=== PATIENT | female | born 1950 | race African-American/Black ===

== ENCOUNTER 2016-06-18 20:46 | Inpatient (IN) | payer OTHER ==
[2016-06-18] MEDS ORDERED: DUONEB (A & A) INH ONE (20:47)
[2016-06-18] MEDS ORDERED: LASIX IV ONE ×2 (20:48→22:51)
[2016-06-18 21:18] LABS: ALLEN TEST YES; BE 1.1 mmoll (-3.0-3.0); BLOOD TYPE ARTERIAL; DRAW SITE R RADIAL; METHB 1.7 % (0.0-1.5); PCO2(98.6) 34 mmHg (35-45); PO2(98.6) 61 mmHg (60-100); SAMPLE BLOOD; SAO2 95.5 % (95.0-100.0); THB 8.5 g/dL (11.5-17.4); pH(98.6) 7.47 (7.35-7.45)
[2016-06-18 21:19] LABS: MODALITY ROOM AIR
--- NOTE | 2016-06-18 21:47 | PROVIDER DOCUMENTATION ---
HPI-Respiratory General <Jim Stafford - Last Filed: 06/18/16 22:55> - General Source: patient - History of Present Illness-Resp Quality of Pain: reports: aching Severity in ED: reports: mild Onset/Duration: reports: 1 week ago Timing: reports: still present Cough Quality/Degree: reports: mild, productive cough Current Respiratory Medication Therapy: Initiated see nurses note Associated Symptoms: reports: cough, shortness of breath Similar Symptoms Previously?: Yes Recently seen or treated by another doctor?: Yes <Flower Felipe - Last Filed: 06/18/16 23:37> - General Chief Complaint: Shortness of Breath Stated Complaint: SOB Time Seen by Provider: 06/18/16 20:46 Allergies/Adverse Reactions: Patient Allergies Allergy/AdvReac Type Severity Reaction Status Date / Time No Known Allergies Allergy Verified 06/18/16 21:35 Home Medications: Home Medication List Medication Instructions Recorded Confirmed Last Taken Type Albuterol Sulfate [Proair Hfa] 8.5 gm IH PRN PRN 12/10/14 06/18/16 06/18/16 21: 00 History Aspirin [Aspir-Low] 81 mg PO DAILY 04/16/16 06/18/16 06/18/16 07:00 History Atorvastatin Calcium 80 mg PO QHS 04/16/16 06/18/16 06/17/16 20:00 History Insulin Glargine [Lantus] 10 units SQ QPM 04/16/16 06/18/16 06/17/16 19:00 History Insulin Glargine [Lantus] 40 units SQ QAM 04/16/16 06/18/16 06/18/16 07:00 History Metoprolol Tartrate 37 mg PO BID 04/16/16 06/18/16 06/18/16 07:00 History Omeprazole 40 mg PO DAILY 04/16/16 06/18/16 06/18/16 07:00 History Hydrocodone/APAP 10 mg/325 mg 1 each PO Q8H PRN PRN 04/17/16 06/18/16 06/18/16 12:00 History [[place]-10] Ferrous Gluconate 240 mg PO BID #0 04/19/16 06/18/16 06/18/16 07:00 Rx Losartan [Cozaar] 100 mg PO DAILY #60 tablet 04/19/16 06/18/16 06/18/16 07:00 Rx Ticagrelor [Brilinta] 90 mg PO BID #60 tablet 04/19/16 06/18/16 06/18/16 07:00 Rx Furosemide [Lasix] 20 mg PO DAILY 06/18/16 06/18/16 06/18/16 07:00 History Isosorbide Mononitrate [Isosorbide 60 mg PO DAILY 06/18/16 06/18/16 06/18/16 07: 00 History Mononitrate ER] LISINOpril [Prinivil] 10 mg PO DAILY 06/18/16 06/18/16 06/18/16 07:00 History Nitroglycerin 0.4 mg SL DIRECTED PRN 06/18/16 06/18/16 Unknown History - History of Present Illness-Resp Nature of Presenting Problem: 65 year old F presents to the ED with a cc of shortness of breath. PT states cough began 1 week ago with minimal shortness of breath. Pt states that she has been taking breathing treatments every 3-4 hours with some relief. PT states today she became short of breath with exertion. PT states that last breathing treatment was 1700. (Flower Felipe) Review of Systems - Adult - REVIEW OF SYSTEMS - ADULT Constitutional: denies: chills, fever Eyes: reports: no symptoms reported Ears, Nose, Mouth & Throat: reports: no symptoms reported Cardiovascular: denies: chest pain, palpitations Respiratory: reports: cough, shortness of breath Gastrointestinal: denies: nausea, vomiting Genitourinary: reports: no symptoms reported Musculoskeletal: reports: no symptoms reported Integumentary: reports: no symptoms reported Neurological: reports: no symptoms reported Psychiatric: reports: no symptoms reported Endocrine: reports: no symptoms reported Hematologic/Lymphatic: reports: no symptoms reported Allergic/Immunologic: reports: no symptoms reported All Other Systems: Reviewed and Negative <Flower Felipe - Last Filed: 06/18/16 23:37> Past History - Adult - PAST MEDICAL HISTORY-ADULT Review of Records: reports: Nursing Assessment Review, Medications Reviewed Major Childhood Illnesses: reports: denies history Cardiovascular: reports: CHF, HTN, hyperlipidemia Respiratory: reports: asthma, COPD Gastrointestinal: reports: denies history Obstetrical/Gynecological: reports: denies history Genitourinary: reports: denies history Musculoskeletal: reports: denies history Neurological: reports: CVA Endocrine/Immune: reports: Diabetes, thyroid disorder Other Conditions: reports: denies history - PRIOR SURGERIES/PROCEDURES Surgical/Procedure History: reports: cholecystectomy, BTL, - IMMUNIZATION STATUS Childhood Immunizations: See Nurse Assessment Flu Vaccine: See Nurse Assessment - FAMILY HISTORY Family History: reviewed, not pertinent - SOCIAL HISTORY Smoking: quit greater than 1 year Substance Use: none/never Alcohol Use Frequency: never <Flower Felipe - Last Filed: 06/18/16 23:37> Physical Exam-General - PHYSICAL EXAM-ADULT Initial Vital Signs Reviewed: Yes - CONSTITUTIONAL General Appearance: alert, mild distress, other (ill appearing) - RESPIRATORY Respiratory: chest non-tender, rales - CARDIOVASCULAR Cardiovascular: normal peripheral pulses, regular rate, rhythm, no edema - GASTROINTESTINAL (ABDOMEN) Abdominal Exam: non tender, soft - MUSCULOSKELETAL Extremity: tenderness (painful ROM left shoulder) - SKIN Integumentary: normal color, normal turgor, warm/dry - PSYCHIATRIC Psych/Mental Status: normal mood/affect, normal thought content, normal thought process, oriented x 3 <Flower Felipe - Last Filed: 06/18/16 23:37> Progress - XRAY 1 XRAY Study: Chest Impression: Abnormal XRAY Interpretation: CHF, questionable RLL infiltrate: Dr. Stafford- CHRISTOPHER FAROOQ - CT/MRI 1 CT Study: Angiogram Impression: Abnormal (No pulmonary embolus or acute vascular abnormality identified. Atelectasis in both lungs, greater on the right with bilateral pleural effusions of uncertain etiology. There is heterogeneous air trapping in the upper lungs. No definite pneumonia. Indeterminate right thyroid nodules and nodular masslike density in the upper mediastinum which could be contunuous with or seperate from the right thyroid.: Dr. Miner([facility] radiologist)) - CONSULTS/PCP/HOSPITALIST Notification #1 *Consult/PCP/Hospitalist*: Dr. Ray- Hospitalist DMM Time Discussed: 22:53 Consult Disposition: Will see in ED, Admit <Flower Felipe - Last Filed: 06/18/16 23:37> Departure - Departure Time of Disposition Order: 22:55 Certified Medical Emergency: Emergent <Jim Stafford - Last Filed: 06/18/16 22:55> <Folwer Felipe - Last Filed: 06/18/16 23:37> - Departure DIAGNOSIS: Hypertension, Heart failure Disposition: ADMITTED INPATIENT 09 Condition: Stable Referrals: None,PCP [Primary Care Provider] - Attestation - Scribe Verification/Attestation Scribe:: Flower Felipe Acting as Scribe for:: Jim Stafford Scribe documention review:: This chart was documented by a scribe and accurately reflects the service the provider performed and the decisions made by the provider. <Flower Felipe - Last Filed: 06/18/16 23:37> Physician Attestation - Physician Attestation I, the provider, attest to the following statement:: Jim Stafford Physician documentation Attestation:: This documentation recorded by the scribe accurately reflects the service I personally performed and the decisions made by me. <Flower Felipe - Last Filed: 06/18/16 23:37>
[2016-06-18 22:04] LABS: BASO% 0.2 % (0.0-0.8); EOS# 0.17 X1000 (0.0-0.7); HEMATOCRIT 31.5 % (37.0-47.0); LYMPH# 0.93 X1000 (1.2-3.4); LYMPH% 11.1 % (20.5-51.1); MANUAL DIFF NEEDED? NO; MCH 21.3 PG (27-31); MCHC 28.6 g/dL (33-37); MCV 74.6 FL (81-99); MONO# 0.29 X1000 (0.11-0.59); MONO% 3.5 % (1.7-9.3); MPV 10.5 FL (7.4-10.4); NEUT% 83.2 % (42.2-75.2); PLT 238 X1000 (130-400); RBC 4.22 XMIL (4.2-5.4)
[2016-06-18 22:26] LABS: AGAP 16; ALBUMIN 4.3 g/dL (3.5-5.0); ALKALINE PHOSPHATASE 131 U/L (32-104); BUN 15 mg/dL (8-22); CALCIUM 9.5 mg/dL (8.8-10.2); CHLORIDE 102 mmol/L (98-107); COSMO 290; GOT 21 U/L (10-30); GPT 18 U/L (10-36); POTASSIUM 3.8 mmol/L (3.5-5.1); SODIUM 142 mmol/L (136-145); TCO2 24 mmol/L (25-35); TOTAL BILIRUBIN 0.69 mg/dL (0.20-1.00)
[2016-06-18] MEDS ORDERED: ROCEPHIN 1 GM/NS 50 ML IV ONE (22:51)
[2016-06-19] MEDS: LOVENOX SUBQ SCH (02:00)
[2016-06-19] MEDS: SOLU-MEDROL IV SCH ×3 (02:00→17:22)
[2016-06-19] MEDS: DUONEB (A & A) INH SCH ×6 (03:25→23:35)
[2016-06-19] MEDS: PRILOSEC PO SCH (06:28)
[2016-06-19] MEDS: LASIX IV SCH ×2 (06:28→17:22)
--- NOTE | 2016-06-19 06:40 | HISTORY AND PHYSICAL ---
PRIMARY CARE PHYSICIAN: CHIEF COMPLAINT: Shortness of breath x1 week. HISTORY OF PRESENTING ILLNESS: A 65-year-old female with a history of chronic obstructive pulmonary disease, coronary artery disease, diabetes mellitus type 2, had presented to the emergency department with a 1-week history of progressive worsening shortness of breath. The patient states that she was wheezing. She could not catch her breath at times and seemed to be worsening. She was evaluated in the emergency room and due to presenting symptoms, it was thought that she would need hospitalization for further management. At the time of my examination, she had denied any headache, fever, chills, nausea, vomiting, diarrhea, hemoptysis, melena, weight changes, but complained of chest discomfort and shortness of breath. PAST MEDICAL HISTORY: Includes chronic obstructive pulmonary disease, diabetes mellitus type 2, hypertension, coronary artery disease/myocardial infarction. PAST SURGICAL HISTORY: Coronary stent, cholecystectomy, appendectomy, thyroidectomy, and right leg surgery. ALLERGIES: No known drug allergies. CURRENT MEDICATIONS: See MAR. SOCIAL HISTORY: She is a former smoker. Quit about 2 years ago. Denies any history of alcohol or illicit drug use. She uses a walker to walk. FAMILY HISTORY: Positive for coronary disease in mother. REVIEW OF SYSTEMS: Twelve point systems as noted in the history of present illness Other systems negative. PHYSICAL EXAMINATION: GENERAL: Cooperative, friendly female. She is resting more comfortably now. VITAL SIGNS: Temperature 97.8 degrees, pulse 82, respiration 24, blood pressure 180/100, she is saturating 95%. HEENT: Atraumatic, normocephalic. Extraocular movements intact. Pupils equal, round, and reactive to light and accommodation. NECK: No masses. CHEST: Rhonchi. CARDIOVASCULAR: Regular rate and rhythm. ABDOMEN: Soft. Positive bowel sounds. EXTREMITIES: Trace edema. NEUROLOGICAL: She is awake, alert, oriented x3. GENITOURINARY: No bladder distention. SKIN: Warm. LABORATORIES AND STUDIES: Sodium 142, potassium 3.8, chloride 102, CO2 24, BUN is 15, creatinine 0.8, glucose is 199. Pro-B-type natriuretic peptide is 1000. D-dimer is 1.19. ASSESSMENT: A 65-year-old female with a history of chronic obstructive pulmonary disease, diabetes mellitus type 2, and coronary artery disease, who presented to the emergency department with 1-week history of worsening shortness of breath. The patient will need hospitalization for further management. 1. Acute chronic obstructive pulmonary disease exacerbation. 2. Increase in D-dimer. Will need to rule out pulmonary embolus. 3. Increase in B-type natriuretic peptide. Suspected congestive heart failure exacerbation, unspecified. 4. History of coronary artery disease. 5. Hypertension. 6. Diabetes mellitus type 2. PLAN: 1. We will admit patient to medical floor with telemetry. 2. We will continue patient on DuoNeb's and IV Solu-Medrol. 3. Awaiting for results of CT scan of the chest. 4. Continue gentle diuresis with Lasix and check an echocardiogram. 5. We will monitor her blood pressure closely. Resume antihypertensive agent. 6. We will put patient on sliding scale insulin regimen. Monitor blood glucose. 7. Put patient on deep venous thrombosis prophylaxis with Lovenox. 8. We will continue to follow and reassess.
[2016-06-19] MEDS: HUMULIN R SUBQ SCH ×4 (07:01→20:54)
[2016-06-19 07:42] LABS: BASO% 0.2 % (0.0-0.8); EOS# 0.01 X1000 (0.0-0.7); EOS% 0.2 % (0.0-10.0); HEMATOCRIT 28.9 % (37.0-47.0); HEMOGLOBIN 8.6 g/dL (12.0-16.0); LYMPH% 4.6 % (20.5-51.1); MANUAL DIFF NEEDED? YES; MCH 21.8 PG (27-31); MCHC 29.8 g/dL (33-37); MCV 73.2 FL (81-99); MONO# 0.07 X1000 (0.11-0.59); MONO% 1.1 % (1.7-9.3); MPV 10.9 FL (7.4-10.4); NEUT% 93.9 % (42.2-75.2); PLT 238 X1000 (130-400); RBC 3.95 XMIL (4.2-5.4)
[2016-06-19 07:44] LABS: AGAP 14; BUN 15 mg/dL (8-22); CALCIUM 9.2 mg/dL (8.8-10.2); CHLORIDE 100 mmol/L (98-107); COSMO 291; POTASSIUM 3.9 mmol/L (3.5-5.1); SODIUM 140 mmol/L (136-145); TCO2 26 mmol/L (25-35)
--- NOTE | 2016-06-19 08:00 | Diag Imaging Result Document ---
PROCEDURE NAME: CHEST-2 VIEWS - 06/18/2016 FRONTAL AND LATERAL CHEST, TWO VIEWS: COMPARISON: Compared to 04/16/2016. FINDINGS: The lungs are well expanded. The heart is enlarged. There is vascular distention. No effusions. No consolidation. Prominent degenerative bone spurring throughout the thoracic spine. IMPRESSION: Cardiomegaly with pulmonary edema consistent with congestive failure.
--- NOTE | 2016-06-19 08:08 | Diag Imaging Result Document ---
PROCEDURE NAME: ANGIOGRAM/PULMONARY ARTERIES - 06/18/2016 CT ANGIOGRAM PULMONARY ARTERIES WITH CONTRAST: TECHNIQUE: Exam performed with intravenous contrast. Axial and reformatted coronal images are obtained. A dose reduction protocol was used. Compared with 04/17/2016. FINDINGS: There are no filling defects identified in the pulmonary arteries. There is no indication of aortic dissection. There is mild cardiomegaly similar to the previous exam. There are medium right and small left pleural effusions which are increased compared to the previous exam. There is compressive atelectasis at the posterior right lower lobe. There are hazy opacities elsewhere in the bilateral lungs. There is no discrete pneumonia identified. There is no pneumothorax seen. There is heterogeneous enlargement of the right thyroid lobe noted. There is a 3.5 x 2.1 cm heterogeneous mass in the superior mediastinum which appears to abut the enlarged right thyroid lobe and has overall similar appearance. This mediastinal mass likely represents inferior extension from the right thyroid lobe. This appears stable compared to the previous exam. The left thyroid lobe apparently is surgically absent. IMPRESSION: 1. No evidence of pulmonary embolism. 2. Probable mild congestive heart failure with medium right and small left pleural effusions. Compressive atelectasis at the posterior inferior right lower lobe. No discrete pneumonia. 3. Heterogeneous enlargement of right thyroid lobe with probable extension into the nearby superior mediastinum. A [facility] physician provided preliminary results at 11:28 p.m. on 06/18/2016.
[2016-06-19 08:48] LABS: HYPOCHROM 1+; LYMPHS 8 % (21-51); TARGET CELLS OCCASIONAL
[2016-06-19] MEDS: COZAAR PO SCH (09:05)
[2016-06-19] MEDS: BRILINTA PO SCH ×2 (09:05→20:52)
[2016-06-19] MEDS: LOPRESSOR PO SCH ×2 (09:05→20:53)
[2016-06-19] MEDS: FERGON PO SCH ×2 (09:06→20:52)
[2016-06-19] MEDS: ASPIRIN EC PO SCH (09:10)
--- NOTE | 2016-06-19 11:52 | CONSULTATION ---
DATE OF CONSULTATION: 06/19/2016 REASON FOR CONSULTATION: Cardiology was consulted for heart failure, coronary artery disease. HISTORY OF PRESENT ILLNESS: Ms. Linda Monge is a 65-year-old, black lady who has diabetes, COPD, coronary artery disease, comes with complaints of chest pain and shortness of breath. She had a stress test done earlier this year which was normal. She followed up with her primary locks inspector in [place]. She had been doing well. However, for the last week or so, she says every time she did minimal exertion, she had retrosternal chest discomfort described as squeezing in character. For the last 3 days, she has been having increasing episodes of chest pain associated with shortness of breath and wheezing. Her shortness of breath worsened. She came to the emergency room. Chest x-ray revealed heart failure. D-dimers were elevated. CT scan was done to rule out PE and that was negative for pulmonary embolism. However, heart failure was noted. She was started on Lasix. Symptomatically, she is better. At the time of my examination, patient does not complain of chest pain. REVIEW OF SYSTEMS: A 14-point review of systems was done. GI System: There is no history of nausea, vomiting, diarrhea. There is no history of hematemesis or melena. Central Nervous System: No focal weakness to suggest a CVA or TIA. Genitourinary System: There is no dysuria or hematuria. Respiratory System: There is no history of cough, expectoration, or hemoptysis. There is no history of fevers or chills. Endocrine System: Stable. PAST MEDICAL HISTORY: 1. Coronary artery disease, status post stent placement in the past. Non-Q-wave myocardial infarction in the past. 2. On 12/13/2015, she had a proximal stent, drug-eluting stent to the right coronary artery. LAD ostial 50% unchanged from previous cardiac catheterization. Circumflex stent was patent. PDA stent was patent. Ejection fraction of 50%. Last cardiac stress test on 04/20/2016, no evidence of ischemia. 3. Echocardiogram, concentric left ventricular hypertrophy. 4. Pulmonary arterial hypertension. Systolic pressure of 42-47 mmHg. 5. Bilateral carotid disease, LICA 40-50%, KATT 0-39%. 6. Hypertension. 7. Diabetes. 8. Obesity. 9. Paranoid schizophrenia. 10. COPD. 11. Ex-smoker. HOME MEDICATIONS: Include: 1. Inhalers. 2. Metoprolol 37.5 mg p.o. b.i.d. 3. Atorvastatin 80. 4. Lantus insulin. 5. Aspirin 81 mg a day. 6. Omeprazole 40. 7. Lantus insulin 40 subcutaneous q.a.m. 8. Losartan 100. 9. Brilinta 90 mg p.o. b.i.d. 10. Iron sulfate 240. 11. Nitroglycerin as needed. 12. Lisinopril 10. 13. Furosemide 20. 14. Isosorbide mononitrate extended release 60 mg. PHYSICAL EXAMINATION: Vital Signs: Blood pressure was 138/42. Cardiovascular System: Normal jugular venous pressure. There was no thyromegaly. There was no carotid bruit. First and second heart sounds were heard. Respiratory System: Distant breath sounds. There were fine inspiratory scattered crepitations. Abdomen: Was obese, soft, nontender. There was no guarding or rigidity. Bowel sounds were heard. Central Nervous System: Alert and oriented. Was moving all 4 extremities. Extremities: Examination of lower extremities revealed no pedal edema. HEENT: Atraumatic, normocephalic. Pupils were equal and reacting to light. LABORATORY EXAMINATION: Revealed a sodium of 140, potassium 3.9, BUN 15, creatinine 0.8. ProBNP abnormal at 1000. First troponin was negative. ASSESSMENT AND PLAN: 1. Ms. Linda Monge is a 65-year-old, black lady with a history of coronary artery disease, hypertension, diabetes, chronic obstructive pulmonary disease. Comes with complaints of exertional chest discomfort for a week with worsening chest pain associated with shortness of breath. Admitted with heart failure. From a cardiac standpoint, she has had multiple stents in the past. Last stent placement to proximal right coronary artery on 12/13/2015 and also she had a stress test earlier this year which was negative. Given her ongoing chest pain, patient has unstable angina. We will get serial cardiac enzymes and plan for a left heart catheterization. Risks, benefits, and alternatives were explained. We will do the left heart catheterization when she is euvolemic. 2. She has heart failure. Started on Lasix. Would recommend continuing the Lasix at the present dosage. We will also check lab work in the morning. As far as heart failure is concerned, the ejection fraction was normal. She has diastolic heart failure. 3. History of transient ischemic attack and diabetes. I have not made any changes to her medication. Thank you for the consult. We will follow hospital course.
--- NOTE | 2016-06-19 14:34 | EKG Report ---
Test Performed on : 06/19/2016 1:17:02 PM Test Reason : dyspnea Blood Pressure : / mmHG Vent. Rate : 085 BPM Atrial Rate : 166 BPM P-R Int : 000 ms QRS Dur : 098 ms QT Int : 416 ms P-R-T Axes : 060 043 093 degrees QTc Int : 495 ms Undetermined rhythm Nonspecific T wave abnormality Prolonged QT Abnormal ECG When compared with ECG of 19-APR-2016 09:08, Current undetermined rhythm precludes rhythm comparison, needs review Nonspecific T wave abnormality now evident in Anterior leads Confirmed by Allan FAROOQ, Lamonte Keane ([id number]) on 06/20/2016 3:23:17 PM
[2016-06-19] MEDS: IMDUR PO SCH (15:05)
--- NOTE | 2016-06-19 16:02 | PROGRESS NOTE ---
DATE: 06/19/2016 SUBJECTIVE: Today Ms. Monge refers to be doing fine. Still continues to have some residual shortness of breath, especially on exertion. PHYSICAL EXAMINATION: General: Ms. Monge is 65-year-old female. She is in bed, not in any remarkable distress. HEENT: Mucosa is pink and moist. Anicteric. Acyanotic. Neck: Supple. Chest: Good air entry bilateral. A few dry crackles at the bases. Cardiovascular: Regular rate and rhythm. Abdomen: Soft, distended but nontender. Bowel sounds are present. Extremities: No pedal edema. DOUGH MIXER: Patient is alert and oriented x4. There is no focal neurological deficit. DIAGNOSTIC STUDIES: A chest x-ray on presentation showed cardiomegaly with pulmonary edema consistent with congestive heart failure. A CTA to rule out pulmonary emboli was negative, but did show mild congestive heart failure with medium right and small left pleural effusions, some compressive atelectasis as well. ASSESSMENT: 1. Shortness of breath likely due to underlying pulmonary edema from congestive heart failure. 2. Acute on chronic congestive heart failure. 3. Iron deficiency anemia. 4. Mild concentric hypertrophic cardiomyopathy. 5. Severe hypertension on presentation, likely hypertensive emergency/urgency. 6. Uncontrolled diabetes mellitus. 7. Morbid obesity. PLAN: So I think the plan is we are going to continue with the current medications. I have added Lantus for a better blood glucose control. Patient is currently on antibiotics , her heart medications, and has been evaluated by Cardiology as well. MTDD
--- NOTE | 2016-06-19 17:56 | ECHO REPORT ---
ORDER DATE: 06/19/2016 INTERPRETING PHYSICIAN: Dr. Dunlap REQUESTING PHYSICIAN: CLINICAL INDICATIONS: A 62-year-old female with CHF, obese. M-MODE MEASUREMENTS: Right ventricle: 3.2 cm. Left ventricle end diastole: 4.1 cm. Left ventricle end systole: 3.3 cm. Posterior wall: 1.3 cm. Interventricular septum: 1.2 cm. Left atrium: 4.3 cm. Aortic root: 3.0 cm. SUMMARY OF 2-DIMENSIONAL IMAGING: The left ventricular function appears to be mildly impaired. Global ejection fraction may be anywhere in the order of 45-50%. The apical views are really very limited. They are foreshortened. A different imaging modality should be used to evaluate this patient's ejection fraction. The right ventricle is probably mildly enlarged. The aortic valve looks normal. Color flow mapping unremarkable. The mitral valve looks normal. Color flow mapping unremarkable. Pulse wave Doppler of mitral inflow is normal. Tissue Doppler of septal and lateral mitral annulus averages 8 cm per second. The pulmonic valve looks normal. Color flow mapping unremarkable. The tricuspid valve shows a mild degree of regurgitation. The inferior vena cava is not dilated. Pulmonary pressure estimated at 33 mmHg. There is no pericardial effusion, masses or thrombus. IMPRESSION: 1. In summary, this study is technically very difficult. Evaluation of the left ventricular systolic function is limited. The global ejection fraction is probably mildly decreased, however, it could truly be normal except that we could not really see well the apical views. Different imaging modality is recommended. 2. No evidence of any significant valvular abnormality. 3. No definite diastolic dysfunction. 4. Pulmonary pressure estimated at 33 mmHg. Clinical correlation recommended.
[2016-06-19] MEDS ORDERED: INSULIN PEN NEEDLES ONE (20:44)
[2016-06-19] MEDS: LIPITOR PO SCH (20:53)
[2016-06-19] MEDS ORDERED: LANTUS SUBQ SCH (21:00)
[2016-06-19] MEDS: ROCEPHIN 1 GM/NS 50 ML IV SCH (22:15)
[2016-06-20] MEDS: LOVENOX SUBQ SCH (01:20)
[2016-06-20] MEDS: SOLU-MEDROL IV SCH ×2 (01:20→10:19)
[2016-06-20] MEDS: DUONEB (A & A) INH SCH ×6 (03:15→23:18)
[2016-06-20 04:15] LABS: AGAP 14; BUN 28 mg/dL (8-22); CALCIUM 9.4 mg/dL (8.8-10.2); CHLORIDE 97 mmol/L (98-107); COSMO 291; POTASSIUM 4.1 mmol/L (3.5-5.1); SODIUM 136 mmol/L (136-145); TCO2 25 mmol/L (25-35)
[2016-06-20] MEDS: PRILOSEC PO SCH (06:52)
[2016-06-20] MEDS: LASIX IV SCH ×2 (06:52→18:47)
[2016-06-20] MEDS: HUMULIN R SUBQ SCH ×4 (06:53→22:32)
--- NOTE | 2016-06-20 07:19 | EKG Report ---
Test Performed on : 06/20/2016 06:56:17 AM Test Reason : dyspnea Blood Pressure : / mmHG Vent. Rate : 090 BPM Atrial Rate : 090 BPM P-R Int : 190 ms QRS Dur : 098 ms QT Int : 390 ms P-R-T Axes : 074 032 102 degrees QTc Int : 477 ms Sinus rhythm. with premature supraventricular complexes. Abnormal QRS-T angle, consider primary T wave abnormality Abnormal ECG When compared with ECG of 19-JUN-2016 13:17, (Unconfirmed) Previous ECG has undetermined rhythm, needs review Nonspecific T wave abnormality no longer evident in Anterior leads Confirmed by Allan FAROOQ, Lamonte Keane ([id number]) on 06/20/2016 3:23:56 PM
[2016-06-20] MEDS ORDERED: LANTUS SUBQ SCH ×2 (09:00→21:00)
[2016-06-20] MEDS: ASPIRIN EC PO SCH (10:17)
[2016-06-20] MEDS: BRILINTA PO SCH ×2 (10:17→22:32)
[2016-06-20] MEDS: COZAAR PO SCH (10:18)
[2016-06-20] MEDS: FERGON PO SCH ×2 (10:18→22:31)
[2016-06-20] MEDS: IMDUR PO SCH (10:18)
[2016-06-20] MEDS: LANTUS SUBQ SCH (10:18)
[2016-06-20] MEDS: LOPRESSOR PO SCH ×2 (10:19→22:32)
[2016-06-20] MEDS ORDERED: HUMULIN R SUBQ ONE ×2 (11:57→14:15)
--- NOTE | 2016-06-20 13:17 | PROGRESS NOTE ---
DATE: 06/20/2016 SUBJECTIVE: Today Ms. Monge referred to be doing fine. Still has some underlying shortness of breath when she exerts herself. OBJECTIVE: Vital signs: Blood pressure is 142/59, pulse of 75, respirations 20, temperature is 98.6 degrees. Patient is saturating 100% on 2 L of oxygen. General: Ms. Monge is a 65-year-old female. She is in bed, not in any distress. HEENT: Mucosa is pink and moist. Anicteric. Acyanotic. Neck: Supple. Chest: Air entry is bilaterally reduced. There are a few bibasilar coarse crackles. Cardiovascular: Regular rate and rhythm. No murmurs. No rubs. No gallops. Abdomen: Soft, nontender. Extremities: No pedal edema. PERSONAL BANKING ASSISTANT: Patient is alert and oriented x4. There is no focal neurological deficit. LABORATORY DATA: No chemistry. No hematology for today. Chemistry is reviewed and completely normal except for glucose which was 349. I was just told by the nurse that a random fingerstick glucose was a almost 500 earlier on today. ASSESSMENT: 1. Respiratory distress due to pulmonary edema. 2. Acute on chronic congestive heart failure. The echocardiogram done yesterday shows an ejection fraction of 45 to 50%. 3. Iron deficiency anemia. 4. Mild concentric hypertrophic cardiomyopathy. 5. Severe hypertension on presentation, likely hypertensive emergency/urgency. This has improved. 6. Uncontrolled diabetes mellitus. I think the patient is also on steroids so we will discontinue that since I do not think she is currently in chronic obstructive pulmonary disease exacerbation. 7. Morbid obesity. 8. Suspected sleep apnea. PLAN: Patient's current medications have been reviewed. We will discontinue the steroids. I have put her back on her insulin regimen which is glargine 40 units in the morning and 10 units in the evening. Will go up on the sliding scale to moderate scale.
[2016-06-20] MEDS: ROCEPHIN 1 GM/NS 50 ML IV SCH (22:31)
[2016-06-20] MEDS: LIPITOR PO SCH (22:31)
[2016-06-20] MEDS: NORCO-10 PO PRN (22:46)
[2016-06-21] MEDS: LOVENOX SUBQ SCH (00:48)
[2016-06-21] MEDS: DUONEB (A & A) INH SCH ×6 (03:21→22:49)
[2016-06-21] MEDS: LASIX IV SCH ×2 (06:08→21:53)
[2016-06-21] MEDS: PRILOSEC PO SCH (06:08)
[2016-06-21] MEDS: HUMULIN R SUBQ SCH ×4 (06:08→22:05)
[2016-06-21 07:57] LABS: HEMATOCRIT 28.4 % (37.0-47.0); HEMOGLOBIN 8.3 g/dL (12.0-16.0); MCH 21.7 PG (27-31); MCHC 29.2 g/dL (33-37); MCV 74.2 FL (81-99); MPV 10.6 FL (7.4-10.4); RBC 3.83 XMIL (4.2-5.4)
[2016-06-21 08:00] LABS: INR 1.02; PROTIME 10.4 Seconds (9.2-11.7)
[2016-06-21 08:18] LABS: AGAP 15; BUN 33 mg/dL (8-22); CALCIUM 9.4 mg/dL (8.8-10.2); CHLORIDE 97 mmol/L (98-107); COSMO 295; MAGNESIUM 2.2 mg/dL (1.5-2.7); POTASSIUM 3.6 mmol/L (3.5-5.1); SODIUM 140 mmol/L (136-145); TCO2 28 mmol/L (25-35)
[2016-06-21] MEDS ORDERED: LANTUS SUBQ SCH (08:19)
[2016-06-21] MEDS ORDERED: NS ONE (08:33)
[2016-06-21] MEDS ORDERED: NITROGLYCERIN ONE (08:33)
[2016-06-21] MEDS ORDERED: HEPARIN ONE (08:33)
[2016-06-21] MEDS ORDERED: NS 1,000 ML ONE (08:51)
[2016-06-21] MEDS ORDERED: CLAVE PUMP SET NO FILTER 12260 ONE (08:52)
[2016-06-21] MEDS ORDERED: CLAVE TWINSITE 32 IN 11959 ONE (08:55)
[2016-06-21] MEDS: LOPRESSOR PO SCH ×2 (09:08→21:48)
[2016-06-21] MEDS: LANTUS SUBQ SCH (09:08)
[2016-06-21] MEDS: ASPIRIN EC PO SCH (09:08)
[2016-06-21] MEDS: COZAAR PO SCH (09:09)
[2016-06-21] MEDS: FERGON PO SCH (09:09)
[2016-06-21] MEDS: BRILINTA PO SCH (09:09)
[2016-06-21] MEDS: IMDUR PO SCH (09:09)
[2016-06-21] MEDS ORDERED: VERSED ONE (10:28)
[2016-06-21] MEDS ORDERED: MORPHINE ONE (10:28)
[2016-06-21] MEDS ORDERED: NS 1,000 ML IV SCH (11:00)
--- NOTE | 2016-06-21 12:11 | EKG Report ---
Test Performed on : 06/21/2016 11:27:04 AM Test Reason : post cath Blood Pressure : / mmHG Vent. Rate : 082 BPM Atrial Rate : 082 BPM P-R Int : 174 ms QRS Dur : 110 ms QT Int : 402 ms P-R-T Axes : 071 055 085 degrees QTc Int : 469 ms Normal sinus rhythm. Right atrial enlargement Borderline ECG When compared with ECG of 20-JUN-2016 06:56, premature supraventricular complexes. are no longer present Confirmed by Allan FAROOQ, Lamonte Keane ([id number]) on 06/23/2016 1:14:48 PM
--- NOTE | 2016-06-21 16:25 | PROGRESS NOTE ---
DATE: 06/21/2016 SUBJECTIVE: Today Ms. Monge referred to be doing fine. She just came from the left heart cath, which I think is from the preliminary report there is nothing concerning for any acute intervention. Ms. Monge denies any chest pain now. OBJECTIVE: Vital signs: Blood pressure is 159/72, pulse of 76, respirations 18 , temperature is 97.8 degrees. Patient was saturating 100% on 2 L of oxygen. General: Ms. Monge is a 65-year- old female. She was in bed. No distress. HEENT: Mucosa is pink and moist. Anicteric. Acyanotic. Neck: Supple. Chest: Clear. Cardiovascular: Regular rate and rhythm. There are no murmurs, no rubs, no gallops. Abdomen: Soft, nontender. Extremities: No pedal edema. Neurologic: The patient is alert and oriented x4. There is no focal neurological deficit. LABORATORY DATA: WBC is 13.03, hemoglobin is 8.3, platelet count of 252,000. Chemistry is reviewed and completely unremarkable except for BUN which is slightly elevated at 22 and glucose is 256. ASSESSMENT: 1. Acute respiratory distress on presentation due to pulmonary edema. 2. Acute on chronic congestive heart failure. Ejection fraction of 45 to 50%. 3. Iron deficiency anemia. 4. Mild concentric hypertrophic cardiomyopathy. 5. Severe hypertension on presentation (hypertensive urgency), improved. 6. Uncontrolled diabetes mellitus. We are going to go up on the current insulin. The p.m. dose we will increase from 10-20. We will maintain the morning dose which is 40 units. 7. Morbid obesity. 8. Suspected sleep apnea. PLAN: So in general, Ms. Monge presented to the emergency department because of shortness of breath and was found to have some pulmonary edema. On presentation her blood pressure was 188/100 and we think she was in acute diastolic heart failure causing some of the pulmonary edema and the shortness of breath. Her blood pressure has been controlled. Cardiology was consulted and they did a left heart cath which I understand has some disease but not for any intervention and they plan to treat this medically. Will be waiting for the official report on the catheterization and their further recommendations. I think the patient can be discharged tomorrow to follow up with her primary care doctor and with cardiology as outpatient. [facility]
--- NOTE | 2016-06-21 20:43 | CARDIAC CATH REPORT ---
PROCEDURE NAME: - PROCEDURE PERFORMED: Left heart catheterization with selective coronary angiography and left ventriculography. INDICATIONS: Recurrent chest discomfort suspicious for recurrent angina and unstable pattern in patient with known coronary disease, history of previous coronary angioplasty/stenting of proximal left circumflex coronary, proximal right coronary, and proximal posterior descending artery. ENTRY SITE: Right femoral artery. CATHETERS USED: 5-Macedonian JL4, JR4, and angled pigtail. TECHNIQUE: After intravenous sedation with Versed and morphine, local anesthesia with lidocaine was applied over right femoral artery. Arterial access was estimated with placement of a 5-Macedonian sheath in the right femoral artery using modified Seldinger technique. Selective coronary angiography was performed, followed by left heart catheterization and left ventriculography. Upon completion of procedure, arterial sheath was removed from right femoral artery and hemostasis facilitated with manual pressure. Patient tolerated procedure without apparent complications. FINDINGS: Hemodynamics: Left ventricular pressure 178/EDP of 25-30. Aortic pressure 175/73 with a mean of 115. Comments on hemodynamics, there is no significant gradient across the aortic valve demonstrated on pullback from left ventricle. Angiography: 1. Left ventriculogram: The left ventricle is upper normal in size with global hypokinesis and estimated left ventricular ejection fraction of 40%. There is no significant mitral regurgitation. 2. Left main coronary artery: The left main coronary artery is free of significant coronary stenosis. 3. Left anterior descending coronary artery: The left anterior descending coronary artery demonstrates a mild to moderate (30-50%) ostial narrowing. The remainder of the left anterior descending coronary artery and its branches demonstrate mild diffuse irregularities, but no significant stenosis. 4. Left circumflex coronary artery: The left circumflex coronary artery gives rise to 3 very small obtuse marginal branches very proximally. There is a stent in the proximal circumflex coronary artery covering this region. The stent is widely patent. Just distal to the stent is a moderate (50%) eccentric stenosis. The remainder of the left circumflex coronary and its branches demonstrate mild irregularities, but no significant stenosis. 5. Right coronary artery: The dominant right coronary artery demonstrates a stent very proximally which is widely patent. The mid right coronary artery demonstrates mild atherosclerosis of 20- 30%. The posterior descending artery demonstrates this stent proximally which is widely patent. CONCLUSIONS: 1. Systemic arterial hypertension. 2. Elevated left ventricular end-diastolic pressure. 3. Estimate left ventricular ejection fraction 40%. 4. Right dominant coronary anatomy as described with patent stent in proximal left circumflex coronary, moderate focal eccentric stenosis in the left circumflex coronary artery just distal to stent, mild to moderate ostial narrowing in left anterior descending coronary, patent stent in very proximal right coronary, and patent stent in posterior descending artery. RECOMMENDATIONS: 1. Medical management of coronary atherosclerosis along with continued efforts at coronary risk factor modification. 2. Consideration of additional diuresis given elevated left ventricular filling pressure.
[2016-06-21] MEDS: LIPITOR PO SCH (21:48)
[2016-06-21] MEDS: ROCEPHIN 1 GM/NS 50 ML IV SCH (21:56)
[2016-06-21] MEDS: NORCO-10 PO PRN (22:05)
[2016-06-22] MEDS: BRILINTA PO SCH ×2 (00:16→09:51)
[2016-06-22] MEDS: FERGON PO SCH ×2 (00:17→09:51)
[2016-06-22] MEDS: DUONEB (A & A) INH SCH ×3 (03:49→11:21)
[2016-06-22] MEDS: NORCO-10 PO PRN (05:09)
[2016-06-22] MEDS: LOVENOX SUBQ SCH (05:10)
[2016-06-22 05:38] LABS: MAGNESIUM 2.2 mg/dL (1.5-2.7)
[2016-06-22] MEDS: HUMULIN R SUBQ SCH ×2 (06:36→11:11)
[2016-06-22] MEDS: PRILOSEC PO SCH (06:40)
[2016-06-22] MEDS: LANTUS SUBQ SCH (09:43)
[2016-06-22] MEDS: IMDUR PO SCH (09:46)
[2016-06-22] MEDS: LOPRESSOR PO SCH (09:47)
[2016-06-22] MEDS: COZAAR PO SCH (09:48)
[2016-06-22] MEDS: ASPIRIN EC PO SCH (09:51)
[2016-06-22 09:58] LABS: BASO% 0.1 % (0.0-0.8); EOS# 0.08 X1000 (0.0-0.7); HEMATOCRIT 30.9 % (37.0-47.0); LYMPH# 1.72 X1000 (1.2-3.4); LYMPH% 22.2 % (20.5-51.1); MANUAL DIFF NEEDED? YES; MCH 21.5 PG (27-31); MCHC 29.1 g/dL (33-37); MCV 73.7 FL (81-99); MONO# 0.45 X1000 (0.11-0.59); MONO% 5.8 % (1.7-9.3); MPV 11.2 FL (7.4-10.4); NEUT% 70.9 % (42.2-75.2); PLT 259 X1000 (130-400); RBC 4.19 XMIL (4.2-5.4)
[2016-06-22 10:04] LABS: AGAP 14; BUN 30 mg/dL (8-22); CALCIUM 8.8 mg/dL (8.8-10.2); CHLORIDE 100 mmol/L (98-107); COSMO 292; POTASSIUM 3.7 mmol/L (3.5-5.1); SODIUM 142 mmol/L (136-145); TCO2 28 mmol/L (25-35)
[2016-06-22 10:43] LABS: LYMPHS 29 % (21-51); MONO 5 % (1-9)
[2016-06-22 10:44] LABS: HYPOCHROM 1+
[2016-06-22 11:20] VITALS: BP 106/58
--- NOTE | 2016-06-23 11:43 | DISCHARGE SUMMARY ---
ADMISSION DATE: 06/18/2016 DISCHARGE DATE: 06/22/2016 CONSULTATION: Dr. Oliver of cardiology. PERTINENT PROCEDURES: Echocardiogram. This was a difficult study technically. EF was 40% to 45%. Pulmonary arteriogram showed no evidence of pulmonary embolism, probable mild congestive heart failure with medium right and small left pleural effusion. Compressive atelectasis at the posterior/inferior right upper lobe. No discrete pneumonia. Heterogenous enlargement of the right thyroid lobe with probable extension into the nearby superior mediastinum. Cardiac catheterization performed by Dr. Hernandez Wolfe showed systemic arterial hypertension, elevated left ventricular end-diastolic pressure, estimated EF of 40%, right dominant coronary anatomy with a patent stent in the proximal left circumflex. Multifocal eccentric stenosis of the left circumflex. Just distal to the stent, [id number] ostial narrowing in the left anterior descending. There is patent stent in the very proximal right coronary and patent stent in the posterior descending artery. Medical management of coronary atherosclerosis along with continued affects of coronary risk factor modification and consideration of additional diuresis given elevated LV filling pressures. DISCHARGE DIAGNOSES: 1. Acute respiratory distress on presentation secondary to pulmonary edema, resolved. 2. Acute on chronic congestive heart failure with an ejection fraction of 45% to 50%, resolved. 3. Iron deficiency anemia, aware. 4. Mild concentric hypertrophic cardiomyopathy. 5. Severe hypertension on presentation, hypertensive urgency improved. 6. Uncontrolled diabetes mellitus with increases in her home insulin regimen. 7. Morbid obesity. Patient educated on diet and exercise. 8. Suspected sleep apnea. HOSPITAL COURSE: Briefly, Ms. Monge presented to the ED with shortness of breath, and was found to have some pulmonary edema. On presentation her blood pressure was 188/100. She was in acute diastolic heart failure causing some pulmonary edema on the shortness of breath. Patient's blood pressures have been uncontrolled. Cardiology was consulted and they did a left heart catheterization that did show some disease, but not enough for an intervention. They planned to treat medically. They did suggest continuing with diuresis. They have approved the patient for discharge home today. Dr. Mendoza also assessed the patient and feels that she is appropriate for discharge today. Patient will follow up with Dr. Oliver in 3-4 weeks, as well as her primary care physician, Dr. Barrientos in [place]. VITAL SIGNS AT TIME OF DISCHARGE: Temperature is 97.6 degrees, heart rate 82, respirations 14, blood pressure 106/58, O2 is 98% on room air. DISCHARGE DIET: Healthy heart. DISCHARGE MEDICATIONS: 1. ProAir inhaler 8.5 g inhaled p.r.n. 2. Aspirin 81 mg p.o. daily. 3. Atorvastatin 80 mg p.o. at bedtime. 4. Metoprolol tartrate 37 mg p.o. b.i.d. 5. Prilosec 40 mg p.o. daily. 6. Isosorbide mononitrate 60 mg p.o. daily. 7. Lasix 20 mg p.o. daily. 8. Brilinta 90 mg p.o. b.i.d. 9. Cozaar 100 mg p.o. daily. 10. Ferrous gluconate 240 mg p.o. b.i.d. 11. Nitroglycerin 0.4 mg sublingual as directed. 12. [place] 10/325, one each p.o. q. 8 hours. 13. Lantus 20 units subcutaneous q.p.m. 14. Lantus 40 units subcutaneous q.a.m. FOLLOW UP: Patient is being discharged home with her daughter. She will follow up with her primary care physician, Dr. Barrientos, to see if she does need Home Health. She will follow up with Dr. Oliver in 3-4 weeks. Patient can return to the ED for any worsening of symptoms. DISCHARGE TIME: 30 minutes. Dictated by ROGER Gutierrez for Fabrizio Eckert MD
== END 2016-06-22 14:30 | disposition home or self-care (01) | DRG 287 ==
LOC: EDBD → ED 20:46 → 3N 06-19 01:09 → 3S 06-21 09:28
PROVIDERS: ATTEND Internal Medicine
PROC: 4A023N7 Measurement of Cardiac Sampling and Pressure, Left Heart, Percutaneous Approach (ICD-10-PCS; principal; 2016-06-21)
PROC: B2111ZZ Fluoroscopy of Multiple Coronary Arteries using Low Osmolar Contrast (ICD-10-PCS; 2016-06-21)
PROC: B2151ZZ Fluoroscopy of Left Heart using Low Osmolar Contrast (ICD-10-PCS; 2016-06-21)
DX: I11.0 Hypertensive heart disease with heart failure (principal); I27.2 Other secondary pulmonary hypertension; E11.65 Type 2 diabetes mellitus with hyperglycemia; E66.01 Morbid (severe) obesity due to excess calories; I42.2 Other hypertrophic cardiomyopathy; J44.1 Chronic obstructive pulmonary disease with (acute) exacerbation; F20.0 Paranoid schizophrenia; D50.9 Iron deficiency anemia, unspecified; I50.33 Acute on chronic diastolic (congestive) heart failure; E89.0 Postprocedural hypothyroidism; R79.1 Abnormal coagulation profile; I65.23 Occlusion and stenosis of bilateral carotid arteries; I25.110 Atherosclerotic heart disease of native coronary artery with unstable angina pectoris; I16.0 Hypertensive urgency; G47.30 Sleep apnea, unspecified; J45.909 Unspecified asthma, uncomplicated; Z95.5 Presence of coronary angioplasty implant and graft; I25.2 Old myocardial infarction; Z87.891 Personal history of nicotine dependence; Z82.49 Family history of ischemic heart disease and other diseases of the circulatory system; Z79.899 Other long term (current) drug therapy; Z79.4 Long term (current) use of insulin; Z79.82 Long term (current) use of aspirin; Z86.73 Personal history of transient ischemic attack (TIA), and cerebral infarction without residual deficits; Z79.02 Long term (current) use of antithrombotics/antiplatelets
CPT/HCPCS: 71020; 71275; 80048; 80053; 82550; 82565; 82805; 82948; 83735; 83880; 84484; 85025; 85027; 85379; 85610; 87040; 93005; 93010; 93306; 93458; 94640; 94761; 96365; 96375; 96376; J0696; J1644; J1650; J1940; J2250; J2270; J2930; J7030; Q9967

== ENCOUNTER 2016-07-28 00:05 | Inpatient (IN) ==
[2016-07-28 00:49] LABS: INR 1.03; PROTIME 10.8 Seconds (9.2-11.7); PTT 27.1 Seconds (22.0-36.0)
[2016-07-28 00:51] LABS: BASO% 0.2 % (0.0-0.8); EOS# 0.14 X1000 (0.0-0.7); EOS% 2.6 % (0.0-10.0); HEMOGLOBIN 6.7 g/dL (12.0-16.0); LYMPH# 0.88 X1000 (1.2-3.4); LYMPH% 16.1 % (20.5-51.1); MANUAL DIFF NEEDED? NO; MCH 20.8 PG (27-31); MCHC 29.1 g/dL (33-37); MCV 71.4 FL (81-99); MONO# 0.29 X1000 (0.11-0.59); MONO% 5.3 % (1.7-9.3); MPV 10.4 FL (7.4-10.4); NEUT% 75.8 % (42.2-75.2); PLT 219 X1000 (130-400); RBC 3.22 XMIL (4.2-5.4)
[2016-07-28 01:02] LABS: AGAP 14; ALBUMIN 3.7 g/dL (3.5-5.0); ALKALINE PHOSPHATASE 96 U/L (32-104); BUN 17 mg/dL (8-22); CALCIUM 8.7 mg/dL (8.8-10.2); CHLORIDE 101 mmol/L (98-107); CK PROFILE 315 U/L (24-173); COSMO 280; GOT 19 U/L (10-30); GPT 17 U/L (10-36); POTASSIUM 3.2 mmol/L (3.5-5.1); SODIUM 140 mmol/L (136-145); TCO2 25 mmol/L (25-35); TOTAL BILIRUBIN 0.42 mg/dL (0.20-1.00); TOTAL PROTEIN 7.1 g/dL (6.3-8.3)
--- NOTE | 2016-07-28 01:06 | ED EKG INTERP ---
This chart was entered by Marck Mays Scribe, acting as scribe for Alonzo Ng MD. EKG Interpretation - EKG Time of EKG reading by physician:: 00:04 EKG Read and Signed by:: Alonzo Ng EKG Interpretation (*Must complete 3 of following elements*): Abnormal ( Possible L atrial enlargement) Rate: 67 Rhythm: NSR This chart was documented by the indicated scribe, (Marck Mays Scribe) and accurately reflects the services I performed and decisions made by me, Alonzo Ng MD, as attested by the provider's signature.
[2016-07-28] MEDS ORDERED: DUONEB (A & A) INH ONE (01:10)
[2016-07-28] MEDS ORDERED: LASIX IV ONE (01:11)
[2016-07-28 01:26] LABS: CK-MB 3.02 ng/mL (0.0-5.0)
--- NOTE | 2016-07-28 04:49 | HISTORY AND PHYSICAL ---
CHIEF COMPLAINT: Difficulty in breathing. HISTORY OF PRESENT ILLNESS: This is a 65-year-old female, past medical history of COPD, coronary artery disease with recent stent placed, who presented to the emergency department complaining of worsening difficulty in breathing for last week. Patient reports that since then, she is having cough that is getting worse despite using her usual inhalers. Also, she started noticing some yellowish and greenish sputum but she has not had any fever. The patient denies any chest pain. At home, she was using her breathing treatments without any help. Also here, she was found to have hemoglobin of 6.5, so we are going to admit this patient to the hospital, transfuse blood and will consult GI doctor to help us in the management of this problem. So, we are going to admit this patient for further evaluation and treatment. PAST MEDICAL HISTORY: 1. COPD. 2. Diabetes mellitus type 2. 3. Hypertension. 4. Coronary artery disease with recent stent placement. PAST SURGICAL HISTORY: 1. Cholecystectomy. 2. Appendectomy. 3. Thyroidectomy. 4. Right leg surgery. ALLERGIES: No known drug allergies. SOCIAL HISTORY: She is a former smoker who quit almost 2 years ago. No alcohol or illicit drugs. She uses a walker to walk. FAMILY HISTORY: History positive for coronary artery disease in mother. REVIEW OF SYSTEMS: Eleven systems were reviewed and all symptoms are related to H P. PHYSICAL EXAMINATION: VITAL SIGNS: Temperature 98.4 degrees, heart rate 64, respiratory 14, blood pressure 114/42, O2 saturation 100% on 2 L nasal cannula. GENERAL: This is a 65-year-old, chronically ill-looking, female lying in bed, in no acute distress. HEENT: Head is normocephalic, atraumatic. Anicteric sclerae and pale conjunctivae. Mucous membranes moist. NECK: Supple. No JVD noted. No carotid bruits. No lymphadenopathy. No thyromegaly. CARDIOVASCULAR: S1, S2 heard. No murmurs, gallops, or rubs. Regular rate and rhythm. RESPIRATORY: Diffuse wheezing in both pulmonary reveles. Patient is not using any accessory muscles or having work of breathing. ABDOMEN: Soft, nontender to palpation. Bowel sounds present. No organomegaly. EXTREMITIES: No clubbing, cyanosis, or edema. Peripheral pulses present in both legs. NEUROLOGICAL: Patient is alert and oriented x3. Able to move 4 extremities. Cranial nerves 2-12 grossly normal. LABORATORY DATA: White cell count 5.45, hemoglobin 6.7, hematocrit 23.0, platelets 219,000. D- dimer 0.43. BMP unremarkable except potassium 3.2. ASSESSMENT: 1. Chronic obstructive pulmonary disease exacerbation. 2. Acute respiratory failure. 3. Uncontrolled diabetes mellitus. 4. Hypertension. 5. Coronary artery disease. PLAN: 1. The patient is going to be admitted to the hospital for COPD exacerbation. We are going to start DuoNeb every 4 hours as schedule and also q.2 hours p.r.n. We will use antibiotics considering that this patient may have an infection going on with Zosyn. Also, Solu-Medrol is going to be used as well. 2. For diabetes mellitus type 2, we will going to place this patient on sliding scale and check hemoglobin A1c. 3. For hypertension, we will continue home medications. 4. Because of possible pneumonia, we are going to order a CT of the chest to rule out pneumonia versus acute bronchitis. 5. For this anemia, we prefer to get GI to have this patient evaluated. cc: Min Ames MD
[2016-07-28] MEDS ORDERED: NS 250 ML ONE (05:36)
[2016-07-28] MEDS ORDERED: ZOFRAN IV PRN (05:42)
[2016-07-28] MEDS ORDERED: ZOSYN 3.375 GM/NS 3.375 GM/50 ML IVPB IV SCH (05:42)
[2016-07-28] MEDS ORDERED: DUONEB (A & A) INH PRN (05:42)
[2016-07-28] MEDS: HUMALOG SUBQ SCH ×5 (06:41→21:45)
[2016-07-28] MEDS: PRILOSEC PO SCH (06:45)
[2016-07-28] MEDS ORDERED: INSULIN PEN NEEDLES ONE (07:42)
[2016-07-28] MEDS: DUONEB (A & A) INH SCH ×5 (08:25→23:00)
[2016-07-28] MEDS: SPIRIVA INH SCH (08:26)
--- NOTE | 2016-07-28 08:52 | Diag Imaging Result Document ---
PROCEDURE NAME: CT THORAX W/O CONTRAST - 07/28/2016 CT CHEST WITHOUT CONTRAST: TECHNIQUE: Dose reduction protocol. COMPARISON: 06/18/2016. FINDINGS: There is a small right sided pleural effusion measuring 12 mm posteriorly and inferiorly in the midline. This is smaller than on the prior exam. Trace left fluid which is also smaller than on the prior study. The heart remains enlarged. There are calcified mediastinal and hilar lymph nodes. There are also several mildly prominent mediastinal lymph nodes which are not calcified. There are scattered calcified granuloma. There is vascular distention. No consolidation. No bronchiectasis. Faint patchy infiltrates in the upper lobes. IMPRESSION: 1. Cardiomegaly with pleural effusions and pulmonary edema consistent with congestive failure. 2. Tiny patchy infiltrates in the upper lobes. A preliminary report was given at 7:12 a.m.
[2016-07-28] MEDS ORDERED: COREG PO SCH (09:00)
[2016-07-28] MEDS ORDERED: LANTUS SUBQ SCH ×2 (09:00→21:00)
[2016-07-28] MEDS: PRINIVIL PO SCH (09:01)
[2016-07-28] MEDS: BRILINTA PO SCH ×2 (09:01→21:46)
[2016-07-28] MEDS: ASPIRIN EC PO SCH (09:01)
[2016-07-28] MEDS: FERGON PO SCH ×2 (09:01→21:45)
[2016-07-28] MEDS: NORVASC PO SCH (09:01)
[2016-07-28] MEDS: DEMADEX PO SCH (09:01)
[2016-07-28] MEDS: IMDUR PO SCH (09:01)
--- NOTE | 2016-07-28 09:52 | Diag Imaging Result Document ---
PROCEDURE NAME: CHEST-2 VIEWS - 07/28/2016 FRONTAL AND LATERAL CHEST, TWO VIEWS: COMPARISON: 06/18/2016. FINDINGS: The lungs are well expanded. The heart is enlarged. There is vascular prominence. I believe there are tiny pleural effusions. No consolidation. IMPRESSION: Congestive failure.
[2016-07-28] MEDS: NORCO-10 PO PRN ×2 (13:06→23:25)
--- NOTE | 2016-07-28 13:40 | PROGRESS NOTE ---
DATE: 07/28/2016 SUBJECTIVE: Today, Ms. Monge refers to be doing a little better. Continues to have remarkable shortness of breath. OBJECTIVE: Vital signs: Blood pressure is 155/52. Of note, blood pressure was about 174/51 at one time when she was in the ER. The pulse is 61, respirations 24, temperature is 98.3 degrees. General: Ms. Monge is a 65-year-old female. She is in bed, in mild respiratory distress. HEENT: Mucosa pink and moist. Anicteric. Acyanotic. Neck: Supple. Chest: Air entry is bilaterally reduced. There is diffuse bilateral wheezing and a prolonged end expiratory phase of respiration. Cardiovascular: Regular rate and rhythm. Did not appreciate any murmur or any rubs. Abdomen: Distended, but nontender. Bowel sounds are present. Extremities: No pedal edema. Distal pulses were present. LABORATORY DATA: WBC is 5.45, hemoglobin is 6.7, platelet count of 219,000. Sodium is 140, potassium is 3.2, chloride is 101, bicarbonate is 25. The proBNP is 1155. This is the highest the patient has had since 2012. ASSESSMENT: 1. Respiratory distress secondary to chronic obstructive pulmonary disease exacerbation. 2. Acute on chronic congestive heart failure. 3. Microcytic anemia secondary to iron deficiency. The patient got 2 units of packed red blood cells transfusion. 4. History of coronary artery disease, status post stent. The patient did have a left heart catheterization in June of this year. It did show ejection fraction of about 40% with some mild to moderate ostial narrowing in the left anterior descending, patent in the very proximal right coronary, and patent stent in posterior descending artery. At that point, recommendation was to treat medically. So, in general, I think Ms. Monge is having a lot of bronchospasms, part of which could be from her chronic obstructive pulmonary disease as well as fluid from congestive heart failure exacerbation. I will discontinue the oral diuretics and start her on Lasix 20 IV q.8, and monitor her intake and output. I will also put her on antibiotics, steroids, and bronchodilator therapy for chronic obstructive pulmonary disease exacerbation. Patient did have a CT scan of the chest, which shows cardiomegaly with pleural effusions and pulmonary edema consistent with congestive heart failure. We would therefore cut down on her beta vijay due to the acute exacerbation. Patient is also being evaluated by Gastroenterology because of the significant iron deficiency anemia for possible endoscopy. cc: Rosas Riley MD
--- NOTE | 2016-07-28 14:45 | CONSULTATION ---
DATE OF CONSULTATION: 07/28/2016 CONSULTING PHYSICIAN: Dr. Luevano. REASON FOR CONSULT: Profound anemia. HISTORY: This is a 65-year-old female with multiple medical problems including coronary disease and status post PTCA and stent placement, admitted to hospital with shortness of breath. During her evaluation she was found to have profound anemia, hence consult was obtained. Patient has a assistant operator, Dr. Strauss in [place]. In fact she was scheduled to have EGD done by him but was postponed pending clearance from Cardiology. She had seen Dr. Covarrubias, her preschool teacher aide in [place]. Patient reports no visible signs of GI bleed. She has had some heartburn and indigestion but denies any hematemesis or coffee-ground emesis. Her appetite is poor. She has not been eating well because of her other medical problems. She has not had any dysphagia or odynophagia. She denies any epigastric pain, abdominal cramps. Her bowel movements are regular, has not seen any melena or bright red blood per rectum. She had a colonoscopy a long time ago, the details of which are not available and I do not have the report with me. PAST MEDICAL HISTORY: Significant for hypertension, hyperlipidemia, coronary artery disease status post PTCA and stent placement. History of COPD and diabetes. She has history of appendectomy, thyroidectomy, cholecystectomy, and surgery on her right leg. MEDICATION: Prior to hospitalization, she has been on iron gluconate, Coreg, ProAir, Brilinta, omeprazole, nitroglycerin, isosorbide mononitrate, aspirin low-dose, torsemide, Lantus insulin, Purlear 10, Prinivil, and amoxapine, along with albuterol nebulizer. ALLERGIES: No known allergies. SOCIAL HISTORY: She is a . Currently living with her friend, her roommate. She does not smoke, does not drink, does not use illicit drugs. FAMILY HISTORY: Noncontributory. REVIEW OF SYSTEMS: As per HPI as above. PHYSICAL EXAMINATION: General Appearance: On examination very obese female, sitting up in the bed, conscious, alert, appears to be slightly tachypneic. Has audible wheezes. Vital Signs: Temperature 98.3 degrees, pulse 61 per minute, breathing 24, blood pressure 145/52. HEENT: Head is atraumatic, normocephalic. Eyes: Conjunctivae pale. Sclerae anicteric. Nares patent, no discharge. Has got nasal cannula in place. Mouth mucosa is moist. Throat is normal. Neck: Supple. No lymphadenopathy or thyromegaly. Chest: Bilaterally symmetrical. She has diffuse rhonchi, occasional crepitations in the bases. Heart: S1, S2 audible. No murmur could be appreciated. The heart sounds are distant. Abdomen: Is obese soft, nontender. No mass or visceromegaly noted. Bowel sounds are audible. Extremities: No pedal edema noted. DIAGNOSTIC DATA: Labs reviewed. WBC 5.45, hemoglobin 6.7, hematocrit 23.0, MCV 71.4, platelets 219,000. PT is 10.8, INR 1.03. Sodium 140, potassium 3.2, chloride 101, bicarb 25, BUN 17, creatinine 0.8. Glucose 189. AST 19, ALT 17. Otherwise LFTs normal. She had a chest CT done which was reported as cardiomegaly and with pleural effusion and evidence of pulmonary edema with congestive heart failure. IMPRESSION: Profound anemia, microcytic. Chronic gastrointestinal bleed and the possibility of her being on Brilinta and aspirin combination for her percutaneous transluminal coronary angioplasty and stent placement gives her more chance of slow gastrointestinal bleed. She is not actively bleeding now. She appears to be hemodynamically stable except for respiratory issues, most likely exacerbation of chronic obstructive pulmonary disease and possible cardiopulmonary issues. At this point, I do not think she needs an urgent or emergent endoscopic intervention, again because she is not actively bleeding and we cannot withhold Brilinta since she has recently had a stent. Thus we will need to transfuse to keep her hemoglobin and hematocrit up above 9 and 27, and it will help her cardiac conditions, as well as continue proton pump inhibitor while treatment for her cardiopulmonary condition continues. Down the road she will need endoscopy to get a definitive diagnosis and/or may need urgent endoscopy if she starts actively bleeding which may require intervention. I have explained our findings and plans to the patient. She understands. All the pertinent questions answered. cc: Alex Varma MD
[2016-07-28 15:04] LABS: BASO% 0.3 % (0.0-0.8); EOS# 0.13 X1000 (0.0-0.7); IMM GRAN# 0.02 X1000 (0.0-0.04); IMM GRAN% 0.3 % (0.0-0.5); LYMPH# 0.96 X1000 (1.2-3.4); MANUAL DIFF NEEDED? YES; MCH 22.9 PG (27-31); MCHC 30.8 g/dL (33-37); MCV 74.5 FL (81-99); MONO# 0.28 X1000 (0.11-0.59); MONO% 4.4 % (1.7-9.3); MPV 10.1 FL (7.4-10.4); PLT 204 X1000 (130-400); RBC 3.49 XMIL (4.2-5.4)
[2016-07-28 15:14] LABS: HEMOGLOBIN A1C 6.7 % (4.8-6.0)
[2016-07-28 15:18] LABS: EOS 1 % (1-10); LYMPHS 14 % (21-51); MONO 5 % (1-9)
[2016-07-28 15:19] LABS: HYPOCHROM 2+
[2016-07-28 15:24] LABS: AGAP 12; BUN 15 mg/dL (8-22); CALCIUM 8.2 mg/dL (8.8-10.2); CHLORIDE 102 mmol/L (98-107); COSMO 289; SODIUM 140 mmol/L (136-145); TCO2 26 mmol/L (25-35)
[2016-07-28] MEDS: SOLU-MEDROL IV SCH ×2 (16:02→21:46)
[2016-07-28] MEDS: LEVAQUIN 250 MG/D5W 250 MG/50 ML IVPB IV SCH (16:02)
[2016-07-28] MEDS: LASIX IV SCH ×2 (16:02→21:46)
[2016-07-28] MEDS: COREG PO SCH (21:46)
[2016-07-29] MEDS: DUONEB (A & A) INH SCH ×6 (04:04→23:30)
[2016-07-29] MEDS: NITROGLYCERIN SL PRN ×2 (04:07→08:58)
[2016-07-29] MEDS ORDERED: LANTUS SUBQ SCH ×2 (06:00)
[2016-07-29] MEDS: LASIX IV SCH ×3 (06:10→22:10)
[2016-07-29] MEDS: PRILOSEC PO SCH (06:11)
[2016-07-29] MEDS: SOLU-MEDROL IV SCH ×3 (06:11→22:10)
[2016-07-29] MEDS: HUMALOG SUBQ SCH ×4 (06:26→22:10)
[2016-07-29] MEDS: SPIRIVA INH SCH (07:30)
[2016-07-29 07:42] LABS: BASO% 0.2 % (0.0-0.8); HEMATOCRIT 30.1 % (37.0-47.0); IMM GRAN# 0.03 X1000 (0.0-0.04); IMM GRAN% 0.5 % (0.0-0.5); LYMPH# 0.43 X1000 (1.2-3.4); LYMPH% 7.7 % (20.5-51.1); MANUAL DIFF NEEDED? YES; MCH 22.2 PG (27-31); MCHC 29.9 g/dL (33-37); MCV 74.3 FL (81-99); MONO# 0.04 X1000 (0.11-0.59); MONO% 0.7 % (1.7-9.3); NEUT% 90.9 % (42.2-75.2); PLT 236 X1000 (130-400); RBC 4.05 XMIL (4.2-5.4)
[2016-07-29 08:14] LABS: AGAP 15; BUN 16 mg/dL (8-22); CALCIUM 8.7 mg/dL (8.8-10.2); CHLORIDE 99 mmol/L (98-107); COSMO 292; POTASSIUM 4.3 mmol/L (3.5-5.1); SODIUM 140 mmol/L (136-145); TCO2 26 mmol/L (25-35)
[2016-07-29 08:23] LABS: BANDS 4 % (0-1); LYMPHS 6 % (21-51); MONO 2 % (1-9)
[2016-07-29] MEDS: PRINIVIL PO SCH (08:46)
[2016-07-29] MEDS: ASPIRIN EC PO SCH (08:46)
[2016-07-29] MEDS: FERGON PO SCH ×2 (08:46→22:08)
[2016-07-29] MEDS: DEMADEX PO SCH (08:46)
[2016-07-29] MEDS: NORVASC PO SCH (08:46)
[2016-07-29] MEDS: COREG PO SCH ×2 (08:47→22:08)
[2016-07-29] MEDS: IMDUR PO SCH (08:47)
[2016-07-29] MEDS: BRILINTA PO SCH ×2 (08:47→22:09)
[2016-07-29] MEDS: APRESOLINE PO SCH ×3 (11:24→17:45)
--- NOTE | 2016-07-29 12:32 | PROGRESS NOTE ---
DATE: 07/29/2016 SUBJECTIVE: 'The patient is resting comfortably lying in bed. In fract, she is getting her breathing treatment. She reports no GI symptoms. She continues to have some shortness of breath and cough. At this point, there is no evidence of active bleeding or GI bleeding. PLAN: I would continue current treatment for her cardiopulmonary conditions and wait for her to get better before proceeding with any endoscopic intervention. I have explained the findings and plan to the patient and her daughter who was present at bedside. They understood. I will be following her. cc: Alex Varma MD
[2016-07-29] MEDS: LEVAQUIN 250 MG/D5W 250 MG/50 ML IVPB IV SCH (12:50)
[2016-07-29] MEDS: NORCO-10 PO PRN (16:56)
[2016-07-29] MEDS: ROBITUSSIN-AC PO PRN ×2 (17:05→22:10)
[2016-07-29] MEDS: MUCOMYST 20% INH SCH (19:30)
[2016-07-30] MEDS: DUONEB (A & A) INH SCH ×6 (03:20→22:17)
[2016-07-30] MEDS: SOLU-MEDROL IV SCH ×3 (04:45→20:19)
[2016-07-30] MEDS: LASIX IV SCH ×3 (04:45→20:19)
[2016-07-30] MEDS: PRILOSEC PO SCH (06:10)
--- NOTE | 2016-07-30 06:16 | EKG Report ---
Test Performed on : 07/28/2016 00:04:24 AM Test Reason : Re-Ordered/SOB Blood Pressure : / mmHG Vent. Rate : 067 BPM Atrial Rate : 067 BPM P-R Int : 202 ms QRS Dur : 094 ms QT Int : 438 ms P-R-T Axes : 075 043 091 degrees QTc Int : 462 ms Normal sinus rhythm. Possible Left atrial enlargement Borderline ECG When compared with ECG of 21-JUN-2016 11:27, No significant change was found Unconfirmed Result
[2016-07-30] MEDS: ROBITUSSIN-AC PO PRN (07:25)
[2016-07-30] MEDS: HUMALOG SUBQ SCH ×5 (07:25→20:49)
[2016-07-30 07:34] LABS: AGAP 15; BUN 21 mg/dL (8-22); CALCIUM 9.1 mg/dL (8.8-10.2); CHLORIDE 94 mmol/L (98-107); COSMO 291; POTASSIUM 4.2 mmol/L (3.5-5.1); SODIUM 137 mmol/L (136-145); TCO2 28 mmol/L (25-35)
[2016-07-30 07:44] LABS: HEMATOCRIT 29.8 % (37.0-47.0); IMM GRAN# 0.02 X1000 (0.0-0.04); IMM GRAN% 0.2 % (0.0-0.5); LYMPH% 3.9 % (20.5-51.1); MANUAL DIFF NEEDED? YES; MCH 22.2 PG (27-31); MCHC 30.2 g/dL (33-37); MCV 73.6 FL (81-99); MONO# 0.16 X1000 (0.11-0.59); MONO% 1.6 % (1.7-9.3); MPV 10.7 FL (7.4-10.4); NEUT% 94.3 % (42.2-75.2); PLT 253 X1000 (130-400); RBC 4.05 XMIL (4.2-5.4)
[2016-07-30 08:00] LABS: BANDS 2 % (0-1); HYPOCHROM 2+; MONO 2 % (1-9)
[2016-07-30] MEDS: MUCOMYST 20% INH SCH ×2 (08:16→19:25)
[2016-07-30] MEDS: SPIRIVA INH SCH (08:16)
[2016-07-30] MEDS ORDERED: LANTUS SUBQ SCH (08:39)
[2016-07-30] MEDS: NORVASC PO SCH (09:19)
[2016-07-30] MEDS: PRINIVIL PO SCH (09:20)
[2016-07-30] MEDS: DEMADEX PO SCH (09:20)
[2016-07-30] MEDS: NORCO-10 PO PRN ×2 (09:20→20:17)
[2016-07-30] MEDS: FERGON PO SCH ×2 (09:20→20:16)
[2016-07-30] MEDS: IMDUR PO SCH (09:20)
[2016-07-30] MEDS: ASPIRIN EC PO SCH (09:20)
[2016-07-30] MEDS: BRILINTA PO SCH ×2 (09:20→20:16)
[2016-07-30] MEDS: LANTUS SUBQ SCH ×2 (09:21→20:18)
[2016-07-30] MEDS: COREG PO SCH ×2 (09:22→20:17)
[2016-07-30] MEDS: APRESOLINE PO SCH ×3 (09:26→17:50)
--- NOTE | 2016-07-30 11:02 | PROGRESS NOTE ---
DATE: 07/29/2016 SUBJECTIVE: Today Ms. Monge referred to be doing a little better. Shortness of breath has slightly improved. However, she still continues to have significant coughing. OBJECTIVE: Vital signs: Blood pressure is 137/80, pulse of 79, respirations 18, temperature is 98.0 degrees. General: Ms. Monge is a 65-year-old female. She is in bed, not in any distress. HEENT: Mucosa is pink and moist. Anicteric. Acyanotic. Neck: Supple. Chest: Air entry is bilaterally reduced. There is mild, faint wheezing bilaterally and there is a slightly prolonged expiratory phase of respiration. Cardiovascular: Regular rate and rhythm. No murmurs. No rubs. No gallops. Abdomen: Soft and distended but nontender. Extremities: No pedal edema. COMMUNITY HEALTH DIRECTOR: Patient is alert and oriented x4. There is no focal neurological deficit. LABORATORY DATA: WBC is 5.62, hemoglobin is 9.0, platelet count of 236,000. Chemistry is reviewed and completely unremarkable except for glucose of 298. CURRENT MEDICATIONS: 1. DuoNeb. 2. Amlodipine 10 mg daily. 3. Coreg 3.125 b.i.d. 4. Iron sulfate. 5. Insulin glargine. 6. Levofloxacin. 7. Methylprednisolone. 8. Brilinta. ASSESSMENT: 1. Respiratory distress secondary to chronic obstructive pulmonary disease exacerbation. 2. Acute on chronic congestive heart failure. 3. Coronary artery disease status post stent since February 2016. Patient is currently on dual anti-platelet medications. 4. Iron deficiency anemia. Patient is status post 2 PRBC transfusion. Hemoglobin and hematocrit continue to be stable. We think this is probably due to ongoing slow GI blood loss from the dual anti-platelet therapy. 5. Diabetes mellitus. Glucose has slightly been elevated. I guess part of it is from steroids. We made some changes to her current insulin coverage. 6. Hypertension was uncontrolled. We added hydralazine 25 3 times per day to her amlodipine and lisinopril for better blood pressure control. PLAN: So in general think Ms. Monge is a little better today. She received 2 PRBC transfusion. She continues to have a mild respiratory distress from the COPD exacerbation. We will continue with incentive spirometer, pulmonary toilette, steroids, antibiotics, and bronchodilator therapy. I have added acetylcysteine for the persistent cough and also Robitussin the cough. Hopefully that helps some with the symptoms. cc: Rosas Riley MD
--- NOTE | 2016-07-30 12:42 | PROGRESS NOTE ---
DATE: 07/30/2016 SUBJECTIVE: The patient states her respiratory status is a little better. She is complaining of congestion and coughing. No reported evidence of GI bleeding. OBJECTIVE: Vital signs: Temperature 98.2 degrees, pulse 73, respirations 18, blood pressure 178/62. General, the patient is awake, alert, in no acute distress. She is sitting on the side of the bed. Respiratory: Some congestion and mild wheezing. Cardiovascular: Regular rate and rhythm. Abdomen is soft, nontender, nondistended. Positive bowel sounds. LABORATORY RESULTS: Hematology: White count 10.19, hemoglobin 9.0, hematocrit 29.8, MCV 73.6. Chemistry: Sodium 137, potassium 4.2, chloride 94, CO2 of 28. BUN 21, creatinine 0.8, glucose 363. ASSESSMENT AND PLAN: 1. Anemia with no active bleeding noted. She has received packed red blood cells. She is on Brilinta. 2. Coronary artery disease with history of stent placement followed by Dr. Covarrubias. She is on Brilinta. 3. Diabetes. Glucose has been elevated. 4. Respiratory distress. 5. Chronic obstructive pulmonary disease, continue respiratory management. Wheelchair Rental Clerk will continue to follow. We will not proceed with endoscopy unless needed urgently due to her recent cardiovascular stent placement and being on anticoagulation. We will continue to follow while in the hospital. She has seen Dr. Strauss in the past. She can follow up with him as an outpatient. Otherwise, further plans will be made in the hospital as needed. I have discussed this case with Dr. Varma. Dictated by ROGER Lay for Alex Varma MD cc: ROGER Guo MD
[2016-07-30] MEDS: LEVAQUIN 250 MG/D5W 250 MG/50 ML IVPB IV SCH (14:15)
[2016-07-30] MEDS ORDERED: INSULIN PEN NEEDLES ONE (16:50)
--- NOTE | 2016-07-30 18:08 | PROGRESS NOTE ---
DATE: 07/30/2016 SUBJECTIVE: Today Ms. Monge refers to be doing fine. She still has a hacking cough. She also did complain of some left shoulder pain and not being able to sleep. OBJECTIVE: Vital signs: Blood pressure was 178/62, pulse 67, respirations 18, temperature 98.2. General: Ms. Monge is a 65-year-old, female. She is in bed, in no distress. HEENT: Mucosa is pink and moist. Anicteric. Acyanotic. Neck: Supple. Chest : Good air entry bilateral. I did not appreciate any wheezing. There was slightly prolonged expiratory phase of respiration. Cardiovascular: Regular rate and rhythm. Abdomen: Soft, nontender. Extremities: No pedal edema. Central Nervous System: Patient is alert and oriented x4. There is no focal neurological deficit. LABORATORY DATA: WBC is 9.0, this has been steady since she got 2 units of PRBC transfusion on the . Platelet count is 253,000. Chemistry is reviewed and is completely unremarkable except for glucose of 363. ASSESSMENT: 1. Respiratory distress secondary to chronic obstructive pulmonary disease exacerbation. 2. Acute on chronic congestive heart failure. Ejection fraction on an echocardiogram done on 06/19/2016 did show an ejection fraction of about 45-50%. 3. Coronary artery disease status post stents in the past, last being February 2016. 4. Iron deficiency anemia status post 2 PRBC transfusions. Hemoglobin and hematocrit is currently stable. Patient is on dual antiplatelet therapy. She has been evaluated by GI but the plan is just to observe and not to do any endoscopy. 5. Diabetes mellitus. This is uncontrolled. We will go up slightly on her insulin regimen and repeat. 6. Hypertension is also uncontrolled. We added hydralazine 25 mg 3 times per day yesterday. We are going to go up to 50 mg for better blood pressure control. We will continue with the other BP medications. 7. Insomnia. We will start the patient on melatonin. 8. Left shoulder pain. Patient referred to have had some surgery to the left shoulder in the past. We will x-ray to make sure everything is fine. In general, Ms. Monge seems to be doing fine. She continues to have respiratory symptoms. We will, therefore, consult Dr. Lopez to evaluate the patient from a pulmonary standpoint. For now we will continue with aggressive pulmonary toilet, incentive spirometer, antibiotics, steroids and bronchodilation. We have gone up on her insulin and we have increased the hydralazine. Hopefully tomorrow if she is doing a whole lot better we might be able to discharge her. Of note, GI does not plan to do anything any interventions for now because patient is on dual anti-platelet and just had a recent stent. We cannot stop the Brilinta. Patient will follow up with Dr. Strauss which I understand is her GI on outpatient. cc: Rosas Riley MD MTDD
[2016-07-30] MEDS: MELATONIN PO SCH (20:18)
[2016-07-31] MEDS ORDERED: HUMALOG SUBQ ONE (01:40)
[2016-07-31] MEDS: ROBITUSSIN-AC PO PRN (01:45)
[2016-07-31] MEDS: DUONEB (A & A) INH SCH ×6 (03:13→23:18)
[2016-07-31] MEDS: LASIX IV SCH ×3 (06:20→20:42)
[2016-07-31] MEDS: HUMALOG SUBQ SCH ×4 (06:21→20:43)
[2016-07-31] MEDS: PRILOSEC PO SCH (06:21)
[2016-07-31] MEDS: NORCO-10 PO PRN ×2 (06:23→14:40)
[2016-07-31 07:44] LABS: BASO% 0.1 % (0.0-0.8); HEMOGLOBIN 9.5 g/dL (12.0-16.0); IMM GRAN# 0.05 X1000 (0.0-0.04); IMM GRAN% 0.4 % (0.0-0.5); LYMPH# 0.48 X1000 (1.2-3.4); LYMPH% 3.5 % (20.5-51.1); MANUAL DIFF NEEDED? YES; MCH 22.6 PG (27-31); MCHC 30.6 g/dL (33-37); MCV 73.6 FL (81-99); MONO# 0.42 X1000 (0.11-0.59); MONO% 3.1 % (1.7-9.3); MPV 10.7 FL (7.4-10.4); NEUT% 92.9 % (42.2-75.2); PLT 268 X1000 (130-400); RBC 4.21 XMIL (4.2-5.4)
--- NOTE | 2016-07-31 07:51 | Diag Imaging Result Document ---
PROCEDURE NAME: SHOULDER-LEFT - 07/30/2016 PLAIN RADIOGRAPH THE LEFT SHOULDER, 2 VIEWS: COMPARISON: None available. FINDINGS: There is a small erosion at the upper surface of the acromion and suggestion of very minimal degenerative change. Otherwise, there is no evidence of fracture, dislocation, or intrinsic osseous lesion. Surrounding soft tissues are essentially unremarkable. IMPRESSION: Minimal degenerative changes at the AC joint.
[2016-07-31 07:56] LABS: AGAP 14; BUN 29 mg/dL (8-22); CALCIUM 9.6 mg/dL (8.8-10.2); CHLORIDE 94 mmol/L (98-107); COSMO 291; POTASSIUM 3.6 mmol/L (3.5-5.1); SODIUM 139 mmol/L (136-145); TCO2 31 mmol/L (25-35)
[2016-07-31 08:09] LABS: BANDS 2 % (0-1); HYPOCHROM 2+; LYMPHS 2 % (21-51); MONO 2 % (1-9)
--- NOTE | 2016-07-31 08:38 | Diag Imaging Result Document ---
PROCEDURE NAME: CHEST-PORTABLE - 07/31/2016 SINGLE FRONTAL RADIOGRAPH OF THE CHEST: COMPARISON: 07/28/2016. FINDINGS: Central vasculature may be slightly prominent similar to the previous study. No new consolidations are identified. Cardiac silhouette is stable. IMPRESSION: Essentially stable chest. [facility]
[2016-07-31] MEDS: MUCOMYST 20% INH SCH (08:42)
[2016-07-31] MEDS: SPIRIVA INH SCH (08:43)
[2016-07-31] MEDS: IMDUR PO SCH (10:17)
[2016-07-31] MEDS: DEMADEX PO SCH (10:17)
[2016-07-31] MEDS: ASPIRIN EC PO SCH (10:17)
[2016-07-31] MEDS: PRINIVIL PO SCH (10:17)
[2016-07-31] MEDS: APRESOLINE PO SCH ×3 (10:17→16:29)
[2016-07-31] MEDS: COREG PO SCH ×2 (10:17→20:42)
[2016-07-31] MEDS: BRILINTA PO SCH ×2 (10:18→20:42)
[2016-07-31] MEDS: FERGON PO SCH ×2 (10:18→20:41)
[2016-07-31] MEDS: NORVASC PO SCH (10:18)
[2016-07-31] MEDS: SOLU-MEDROL IV SCH (10:18)
[2016-07-31] MEDS: LANTUS SUBQ SCH ×2 (10:18→20:42)
--- NOTE | 2016-07-31 14:09 | PROGRESS NOTE ---
DATE: 07/31/2016 SUBJECTIVE: Today Ms. Monge referred to be doing fine but she still has this coughing which according to her, prevented her from sleeping. OBJECTIVE: Vital signs: Blood pressure is 146/58, pulse of 59, respirations 15, temperature is 97.6 degrees. General: Ms. Monge 65-year-old female. She is in bed, no distress. HEENT: Mucosa is pink and moist. Anicteric. Acyanotic. Neck: Supple. Chest: Good air entry bilateral. A few distal wheezing with mildly prolonged expiratory phase of respiration. Abdomen: Soft. Extremities: No pedal edema. TESTING LEAD: Patient is alert and oriented. LABORATORY DATA: WBC went up slightly to 13.76, hemoglobin is 9.5, platelet count is 268,000. There is only 2% of bands on the peripheral smear. Chemistry is reviewed, unremarkable except for glucose of 237. ASSESSMENT: 1. Respiratory distress secondary to chronic obstructive pulmonary disease exacerbation. 2. Acute on chronic congestive heart failure. Ejection fraction of 45-50%. 3. Coronary artery disease status post stent in the past. The last stent was placed in February 2016. 4. Iron deficiency anemia likely due to chronic gastrointestinal blood loss from dual anti- platelet therapy. The patient got 2 packed red blood cells transfusion. Hemoglobin and hematocrit is now stable. Has been evaluated by gastroenterology and they do not plan to do any intervention in the hospital. 5. Uncontrolled diabetes mellitus. We have gone up on her insulin needs and will continue to titrate her insulin demands. 6. Hypertension is better controlled today. 7. Insomnia. This is improved. 8. Left shoulder pain secondary to osteoarthritis. In general I think Ms. Monge is doing a little better. Shortness of breath has significantly improved but she still continues to have this cough. Will be pending on pulmonary medicine evaluation today. I think she might probably be able to be discharged tomorrow. I have discussed this with her and the possibility of her being discharged tomorrow. cc: Rosas Riley MD
[2016-07-31] MEDS: LEVAQUIN 250 MG/D5W 250 MG/50 ML IVPB IV SCH (14:41)
--- NOTE | 2016-07-31 14:52 | CONSULTATION ---
DATE OF CONSULTATION: 07/31/2016 REFERRING PHYSICIAN: Dr. Riley. CHIEF COMPLAINT: Difficulty breathing. HISTORY OF PRESENT ILLNESS: This is a 65-year-old, female with a past medical history of COPD, CAD, diabetes and hypertension that initially presented to the hospital with complaints of shortness of breath. She appears to be doing fine at this time, but will need outpatient follow up. She denies any chest pain, abdominal pain, nausea, vomiting, or shortness of breath at this time. REVIEW OF SYSTEMS: A 10-point review of systems was conducted. Pertinent is noted in the HPI, otherwise noncontributory. PAST MEDICAL HISTORY: COPD, diabetes, hypertension, CAD with recent stent placement. PAST SURGICAL HISTORY: Cholecystectomy, appendectomy, thyroidectomy, right leg surgery. ALLERGIES: No known drug allergies. SOCIAL HISTORY: She is a former smoker and quit nearly 2 years ago. Denies the use of alcohol or illicit drugs. FAMILY HISTORY: Notable for CAD. PHYSICAL EXAMINATION: Vital signs: Temperature 97.6, heart rate 59, respiratory rate 15, blood pressure 146/58, oxygen saturation 100%. General: Awake, alert, sitting up in bed, no acute distress noted. HEENT: Normocephalic, atraumatic. PERRL. Cardiovascular: Regular rate and rhythm. S1, S2 present. Chest: Reduced entry. Abdomen: Soft, nontender, nondistended. Bowel sounds present in all quadrants. Neurologic: Alert and oriented x3. No focal deficits. LABS AND INVESTIGATIONS: WBC 13.76, RBC 4.21, hemoglobin 9.5, hematocrit 31, platelet count 268. Sodium 139, potassium 3.6, chloride 94, CO2 31, anion gap 14, BUN 29, creatinine 0.8, glucose 237. ACTIVE MEDICATIONS: Speed, Mucomyst, DuoNeb, Norvasc, aspirin, Coreg, Fergon, Lasix, Robitussin, Apresoline, Lantus, Humalog, Imdur, Levaquin, Prinivil, melatonin, Solu-Medrol, nitroglycerin, Prilosec, Zofran, Brilinta, Spiriva and Demadex. ASSESSMENT AND PLAN: This is a 65-year-old, female with a past medical history mentioned in history of present illness that presented to the hospital with complaint of shortness of breath. She was admitted to the floor and treated for a chronic obstructive pulmonary disease exacerbation, which appears to be stable at this time. She also has coronary artery disease, status post stent placement last February. She was transfused 2 packed red blood cells for her anemia, and her insulin regimen was adjusted for diabetes control. She appears to be doing well at this time and is in no apparent distress. She will need close outpatient evaluation. Further recommendations pending diagnostic studies. Thank you for the courtesy of this consult. Dictated by ROGER Hightower for Ana Lopez MD cc: ROGER Hightower MD
[2016-07-31] MEDS: MELATONIN PO SCH (20:45)
[2016-08-01] MEDS: DUONEB (A & A) INH SCH ×6 (03:39→22:57)
[2016-08-01] MEDS: LASIX IV SCH ×3 (05:13→20:19)
[2016-08-01] MEDS: PRILOSEC PO SCH (06:01)
[2016-08-01] MEDS: HUMALOG SUBQ SCH ×4 (06:02→21:00)
[2016-08-01] MEDS: ROBITUSSIN-AC PO PRN (06:43)
[2016-08-01] MEDS: SPIRIVA INH SCH (08:12)
[2016-08-01] MEDS: ASPIRIN EC PO SCH (08:35)
[2016-08-01] MEDS: IMDUR PO SCH (08:35)
[2016-08-01] MEDS: LANTUS SUBQ SCH (08:35)
[2016-08-01] MEDS: BRILINTA PO SCH ×2 (08:35→20:19)
[2016-08-01] MEDS: APRESOLINE PO SCH ×3 (08:35→20:19)
[2016-08-01] MEDS: NORVASC PO SCH (08:35)
[2016-08-01] MEDS: COREG PO SCH ×2 (08:35→20:20)
[2016-08-01] MEDS: SOLU-MEDROL IV SCH (08:35)
[2016-08-01] MEDS: PRINIVIL PO SCH (08:35)
[2016-08-01] MEDS: DEMADEX PO SCH (08:41)
[2016-08-01] MEDS: FERGON PO SCH ×2 (08:41→20:19)
[2016-08-01] MEDS: LEVAQUIN 250 MG/D5W 250 MG/50 ML IVPB IV SCH (12:49)
[2016-08-01] MEDS: NORCO-10 PO PRN (13:57)
--- NOTE | 2016-08-01 15:03 | PROGRESS NOTE ---
DATE: 08/01/2016 SUBJECTIVE: Patient states she is doing okay. She is frustrated about being in the hospital. She states she may go home tomorrow. She still has some cough. No reported active bleeding. OBJECTIVE: Vital Signs: Temperature 97.8 degrees, pulse 52, respirations 18, blood pressure 128/59. General: She is awake, alert, no acute distress. She is lying in her bed. HEENT: Normocephalic, atraumatic. Pupils equal, round, reactive to light. Sclerae are nonicteric. Respiratory: Some slight wheezing noted. Abdomen: Soft, nontender. DIAGNOSTIC RESULTS/LABORATORY: Hematology: White count 13.76, hemoglobin 9.5, hematocrit 31.0, MCV 76.3. Coagulation: Protime 10.8, INR 1.03. Chemistry: Sodium 139, potassium 3.6, chloride 94, CO2 31, BUN 29, creatinine 0.8, glucose 237. ASSESSMENT AND PLAN: 1. Chronic obstructive pulmonary disease. 2. Cough. 3. Congestive heart failure. 4. Coronary artery disease. She had a recent stent placed in February of 2016. She was on Brilinta. 5. Anemia. Questionable gastrointestinal blood loss from antiplatelet therapy. She has received packed red blood cells while in the hospital. Her hemoglobin is currently stable. It was not felt that she needed endoscopy at present time because hemoglobin and hematocrit are now stable, she has not had any active bleeding, and she is on anticoagulation for her cardiovascular stent that was placed in February. She was following with Dr. Strauss, real estate clerk in [place]. Patient states that she will plan to follow up with him but if she does not, she may contact our office for follow up. Continue supportive care. Continue to monitor hemoglobin and hematocrit. Monitor for any active bleeding. If she decides to follow up with us, I have given her a card to call and make an office visit appointment. Will continue to follow in the hospital. Further plans will be made after discharge. Dictated by ROGER Lay for Alex Varma MD cc: ROGER Guo MD
[2016-08-01] MEDS ORDERED: LANTUS SUBQ SCH (16:52)
--- NOTE | 2016-08-01 17:40 | PROGRESS NOTE ---
DATE: 08/01/2016 SUBJECTIVE: Today, Ms. Monge refers to be a little weaker and continues to be coughing. OBJECTIVE: Vital signs: Blood pressure is 139/41, pulse of 65, respirations 19, temperature 97.9 degrees. General: Ms. Monge is a 65-year-old female. She was in bed. No distress. HEENT: Mucosa is pink and moist. Anicteric and acyanotic. Neck: Supple. Chest: Air entry is slightly bilaterally reduced. There is mild prolonged expiratory phase of respiration. Cardiovascular: Regular rate and rhythm. No murmurs, no rubs. No gallops. Abdomen: Soft, distended, but nontender. Extremities: No pedal edema. LOCK TENDER: Patient is alert, oriented x4. There is no focal neurological deficit. LABORATORY DATA: None for today except for glucose which is 349. ASSESSMENT: 1. Respiratory distress secondary to chronic obstructive pulmonary disease exacerbation. 2. Acute on chronic congestive heart failure. Ejection fraction of 45-50%. 3. Coronary artery disease status post stent in the past. The last stent was placed in February 2016. 4. Iron deficiency anemia likely due to chronic gastrointestinal blood loss from dual anti- platelet therapy. The patient got 2 units of packed red blood cells. Hemoglobin and hematocrit is stable. Has actually improved over the course of the hospital stay, and will continue to observe and patient will follow up with her Gastroenterology Physician on outpatient basis. 5. Uncontrolled diabetes mellitus. We have uptitrated her insulin demands. 6. Hypertension is better controlled. 7. Suspected sleep apnea. Patient has been evaluated by Pulmonary Medicine. She is currently using a CPAP machine here in the hospital. I think the plan is for her to get sleep study outpatient and eventually start using the machine at home. 8. Left shoulder pain, improved. Due to osteoarthritis. In general, Ms. Monge says she feels a little weak today so we are going to observe her, we are making some adjustment on her insulin demands and hopefully we can get her discharged tomorrow. cc: Rosas Riley MD
[2016-08-01] MEDS: HUMULIN R SUBQ SCH (18:00)
[2016-08-01] MEDS: MELATONIN PO SCH (20:20)
[2016-08-02] MEDS: DUONEB (A & A) INH SCH ×4 (02:30→15:19)
[2016-08-02] MEDS: LASIX IV SCH (06:02)
[2016-08-02] MEDS: PRILOSEC PO SCH (06:02)
[2016-08-02] MEDS: HUMALOG SUBQ SCH ×2 (06:04→12:13)
[2016-08-02] MEDS: SPIRIVA INH SCH (07:35)
[2016-08-02 07:44] LABS: AGAP 11; BUN 41 mg/dL (8-22); CALCIUM 9.4 mg/dL (8.8-10.2); CHLORIDE 98 mmol/L (98-107); COSMO 295; POTASSIUM 3.6 mmol/L (3.5-5.1); SODIUM 143 mmol/L (136-145); TCO2 34 mmol/L (25-35)
[2016-08-02] MEDS: HUMULIN R SUBQ SCH ×2 (07:51→12:13)
[2016-08-02] MEDS ORDERED: INSULIN PEN NEEDLES ONE (08:06)
[2016-08-02] MEDS ORDERED: PREDNISONE PO SCH (09:00)
[2016-08-02] MEDS: ROBITUSSIN-AC PO PRN (09:08)
[2016-08-02] MEDS: APRESOLINE PO SCH ×2 (09:09→12:14)
[2016-08-02] MEDS: DEMADEX PO SCH (09:09)
[2016-08-02] MEDS: COREG PO SCH (09:10)
[2016-08-02] MEDS: ASPIRIN EC PO SCH (09:10)
[2016-08-02] MEDS: PRINIVIL PO SCH (09:10)
[2016-08-02] MEDS: IMDUR PO SCH (09:10)
[2016-08-02] MEDS: LANTUS SUBQ SCH (09:10)
[2016-08-02] MEDS: NORVASC PO SCH (09:10)
[2016-08-02] MEDS: FERGON PO SCH (09:10)
[2016-08-02] MEDS: BRILINTA PO SCH (09:10)
[2016-08-02] MEDS: NORCO-10 PO PRN (12:13)
[2016-08-02] MEDS ORDERED: LEVAQUIN PO SCH (13:00)
[2016-08-02 13:52] VITALS: BP 111/30
[2016-08-02] MEDS ORDERED: ADVAIR 250/50 DISKUS INH SCH (19:30)
--- NOTE | 2016-08-03 12:25 | DISCHARGE SUMMARY ---
ADMISSION DATE: 07/28/2016 DISCHARGE DATE: 08/02/2016 CONSULTATIONS: Dr. Lopez with Pulmonology. PERTINENT PROCEDURES: Chest CT showed cardiomegaly with pleural effusions and pulmonary edema consistent with congestive heart failure. Tiny patches of infiltrates in upper lobe. Followup chest x-ray was essentially stable chest. DISCHARGE DIAGNOSES: 1. Respiratory distress secondary to COPD exacerbation resolved. 2. Acute on chronic congestive heart failure. An EF of 40-45%. Stable. 3. Coronary artery disease status post stent in the past. No chest pain. 4. Iron deficiency anemia secondary to chronic GI bleed from anti-platelet therapy. Patient received 2 units of packed red blood cells. Hemoglobin and hematocrit is stable. 5. Uncontrolled diabetes mellitus, with the increase in insulin demands. 6. Hypertension, controlled better. 7. Suspected sleep apnea. Patient evaluated by Pulmonary. Currently using CPAP machine while she was here in the hospital. Plan is for the patient to follow up outpatient for sleep study and start using a CPAP machine at home. 8. Left shoulder pain improved due to osteoarthritis. HOSPITAL COURSE: Ms. Monge is a 65-year-old, female who carries a past medical history of COPD, CAD with recent stent placement in February 2016, uncontrolled diabetes, hypertension presented to the ED with worsening shortness of breath over a week, complaining of cough that was getting worse despite using her inhalers. Also notice some yellowish greenish sputum. Denied any fever, denies any chest pain. While in the ED she was found have a hemoglobin of 6.5. Patient was admitted to the hospital and transfused with 2 units of blood with a GI consult. They questioned GI blood loss from anti-platelet therapy. After her PRBCs patient's H and H has remained stable. There is no active bleeding and she will follow up with Dr. Strauss her GI doctor, in [place]. The patient was admitted to the floor, treated for COPD exacerbation. She had her insulin regimen adjusted for diabetes control. She was using a CPAP machine while in the hospital. She will follow up closely with Dr. Lopez. Once discharged she will be set up for sleep study to continue home use of CPAP. Patient is clinically improving. Her shortness of breath has significantly improved but she still continues to have a slight cough. She was observed for 1 more day. Patient is appropriate for discharge home today. Vital signs at time of her discharge, temperature is 97.9 degrees, heart rate 53, respirations 16, blood pressure 120/44, O2 is 100% on 3 L nasal cannula. DISCHARGE DIET: Healthy heart. DISCHARGE MEDICATIONS: As per Dr. Riley. Please see JUN. FOLLOWUP: Patient is being discharged home. She will need to obtain a primary care physician, and follow up within 7-10 days. She will need to follow up with Dr. Lopez on August 10. Patient can return to the ED for any worsening of symptoms. Discharge time 30 minutes. Dictated by ROGER Gutierrez for Rosas Riley MD cc: Rosas Riley MD
--- NOTE | 2016-08-08 19:09 | PROVIDER DOCUMENTATION ---
This chart was entered by Marck Mays Scribe, acting as scribe for Alonzo Ng MD. HPI-Respiratory General - General Chief Complaint: Shortness of Breath Stated Complaint: sob Time Seen by Provider: 07/28/16 00:50 Source: patient Allergies/Adverse Reactions: Patient Allergies Allergy/AdvReac Type Severity Reaction Status Date / Time No Known Allergies Allergy Verified 06/18/16 21:35 Home Medications: Home Medication List Medication Instructions Recorded Confirmed Last Taken Type Albuterol Sulfate [Proair Hfa] 8.5 gm IH PRN PRN 12/10/14 07/28/16 07/27/16 History Aspirin [Aspir-Low] 81 mg PO DAILY 04/16/16 07/28/16 07/27/16 History Omeprazole 40 mg PO DAILY 04/16/16 07/28/16 07/27/16 History Ferrous Gluconate 240 mg PO BID #0 04/19/16 07/28/16 07/27/16 Rx Ticagrelor [Brilinta] 90 mg PO BID #60 tablet 04/19/16 07/28/16 07/27/16 Rx Isosorbide Mononitrate [Isosorbide 60 mg PO DAILY 06/18/16 07/28/16 07/27/16 History Mononitrate ER] Hydrocodone/APAP 10 mg/325 mg 1 each PO Q8H PRN PRN #20 tablet 06/22/1607/27/16 Rx [[place]ey[place]-10] Nitroglycerin 0.4 mg SL DIRECTED PRN #15 06/22/16 07/28/16 07/26/16 Rx tab.subl Albuterol [Albuterol Neb] 2.5 mg INH RTQ6H 07/28/16 07/28/16 07/27/16 History Amlodipine Besylate 10 mg PO DAILY 07/28/16 07/28/16 07/27/16 History Carvedilol [Coreg] 12.5 mg PO BID 07/28/16 07/28/16 07/27/16 History LISINOpril [Prinivil] 20 mg PO DAILY 07/28/16 07/28/16 07/27/16 History Torsemide 20 mg PO DAILY 07/28/16 07/28/16 07/26/16 History Fluticasone/[place]met 250/50 INH 1 puff INH RTBID #1 inhaler 08/02/16 Unknown Rx [Advair 250/50 Diskus] Guaifenesin/Codeine [Robitussin-AC] 10 ml PO Q4-6H PRN PRN #1 udc 08/02/16 Unknown Rx Insulin Glargine [Lantus] 30 units SQ QPM #2 insuln.pen 08/02/16 07/28/16 Rx Insulin Glargine [Lantus] 50 units SQ QAM #2 insuln.pen 08/02/16 07/28/16 Rx Levofloxacin [Levaquin] 250 mg PO Q24H #5 tablet 08/02/16 Unknown Rx Melatonin 3 mg PO QHS #30 tablet 08/02/16 Unknown Rx Prednisone 20 mg PO DAILY #5 tablet 08/02/16 Unknown Rx Tiotropium [place] Inhaler 1 puff INH RTDAILY #1 inhaler 08/02/16 Unknown Rx [Spiriva] - History of Present Illness-Resp Nature of Presenting Problem: Pt is a 65 yof who presents to ER via EMS with CC of shortness of breath/ productive cough x3-4 days. Pt reports that she has had 3 breathing treatments today, provided at home, at 0600/1200/1600, but is still wheezing. Pt reports hx of COPD, asthma, and CHF and reports that she feels as though she is retaining fluid. Pt did not take her lasix today because she was unable to sleep last night due to her sob, and reports that she became incontinent of urine this am. Quality of Pain: reports: none Severity in ED: reports: moderate Onset/Duration: reports: 4 days ago Timing: reports: still present Cough Quality/Degree: reports: severe, productive cough, sputum Episode Frequency: occasional episodes Current Respiratory Medication Therapy: Initiated A/A nebulizer Associated Symptoms: reports: cough, shortness of breath, short of breath, sore throat, wheezing. denies: chest pain/soreness, dizziness, earache, facial pain , fever/chills, flu-like symptoms, headache, heart racing, hurts to breathe, hyperventilating, lightheadedness, muscle/bodyaches, nasal congestion, nasal drainage, sinus pain, sweaty Similar Symptoms Previously?: Yes Recently seen or treated by another doctor?: Yes Review of Systems - Adult - REVIEW OF SYSTEMS - ADULT Constitutional: denies: chills, fever, fatique, night sweats, weight gain, weight loss Eyes: reports: no symptoms reported Ears, Nose, Mouth & Throat: reports: no symptoms reported Cardiovascular: denies: chest pain, edema, heart murmur, irregular heart rate, orthopnea, palpitations, poor circulation, PND, syncope Respiratory: reports: chronic cough, cough, excessive sputum production, shortness of breath, wheezing. denies: dyspnea on exertion, hemoptysis, pleurisy Gastrointestinal: denies: abdominal pain, hematemesis, constipation, diarrhea, difficulty swallowing, frequent heartburn, nausea, poor appetite, rectal bleeding, vomiting Genitourinary: reports: no symptoms reported Musculoskeletal: reports: no symptoms reported Integumentary: reports: no symptoms reported Neurological: reports: no symptoms reported Psychiatric: reports: no symptoms reported Endocrine: reports: no symptoms reported Hematologic/Lymphatic: reports: no symptoms reported Allergic/Immunologic: reports: no symptoms reported All Other Systems: Reviewed and Negative Past History - Adult - PAST MEDICAL HISTORY-ADULT Review of Records: reports: Nursing Assessment Review, Medications Reviewed Cardiovascular: reports: CHF, HTN, hyperlipidemia Respiratory: reports: asthma, COPD Neurological: reports: CVA Endocrine/Immune: reports: Diabetes, thyroid disorder - PRIOR SURGERIES/PROCEDURES Surgical/Procedure History: reports: cholecystectomy, BTL, - IMMUNIZATION STATUS Childhood Immunizations: See Nurse Assessment Flu Vaccine: See Nurse Assessment - FAMILY HISTORY Family History: reviewed, not pertinent Physical Exam-General - PHYSICAL EXAM-ADULT Initial Vital Signs Reviewed: Yes - CONSTITUTIONAL General Appearance: appears well, alert, mild distress, obese. negative: no apparent distress - EYES Eyes: PERRL/EOMI, pink conjunctivae, FUN - HEAD, EARS, NOSE, MOUTH & THROAT HENMT: normocephalic/atraumatic, moist mucous membranes, normal ENT inspection, TMs normal, pharynx normal. negative: pharyngeal erythema, tonsillar exudate, TM abnormal - NECK Neck: non-tender, full range of motion, supple, normal inspection. negative: C- spine tenderness, limited range of motion, lymphadenopathy - RESPIRATORY Respiratory: chest non-tender, no pleuratic chest pain, no respiratory distress , no accessory muscle use, wheezing (severe). negative: lungs clear, normal breath sounds - CARDIOVASCULAR Cardiovascular: normal peripheral pulses, regular rate, rhythm. negative: bradycardia, tachycardia, irregularly irregular - GASTROINTESTINAL (ABDOMEN) Abdominal Exam: normal bowel sounds, non tender, soft, no organomegaly, no pulsatile mass. negative: abnormal bowel sounds, distended, tenderness - MUSCULOSKELETAL Back Exam: normal inspection, no CVA tenderness, no vertebral tenderness. negative: CVA tenderness, decreased range of motion, ecchymosis, muscle spasm, swelling, vertebral tenderness Extremity: normal range of motion, non-tender, normal gait, normal inspection, no pedal edema, no calf tenderness, normal capillary refill. negative: deformity, erythema, inflammation, swelling, tenderness - SKIN Integumentary: normal color, normal turgor, warm/dry. negative: abrasion(s), diaphoresis, ecchymosis, erythema, laceration(s), swelling, tenderness, warm - NEUROLOGIC Neurologic: outside sales II-XII nml as tested, grossly normal, no motor/sensory deficits . negative: facial droop, focal weakness, motor weakness, sensory deficit - PSYCHIATRIC Psych/Mental Status: normal thought content, normal thought process, oriented x 3, anxious. negative: normal mood/affect Progress - PLAN OF CARE/RESULTS Progress/Plan/Lab Results: Orders Category Date Time Status Admit - [facility] Routine AdmDCTranf 07/28/16 05:42 Ordered Activity - Up with Assistance ORDERED Care 07/28/16 05:42 Active Apply Mechanical Device [QM] ORDERED Care 07/28/16 05:42 Active Cardiac Monitoring DIRECTED Care 07/28/16 00:22 Completed FSBS/Accucheck Result AC + HS Care 07/28/16 05:42 Active Intake and Output-Strict ORDERED Care 07/28/16 05:42 Active Nursing- MD Consult Request ROUTINE Care 07/28/16 05:42 Completed Oxygen Therapy- ED Nursing DIRECTED Care 07/28/16 00:22 Completed Saline Loc NOW Care 07/28/16 00:22 Completed Transfuse .Give-Transfuse Care 07/28/16 03:22 Active Vital Signs Order Q 6-HR ASSESS Care 07/28/16 05:42 Active Physician/Provider Consults Routine Cons 07/28/16 05:42 Ordered Heart Healthy Diet Diet 07/28/16 07:00 Completed CHEST-2 VIEWS [RAD] Stat Exams 07/28/16 00:[address] THORAX W/O CONTRAST [CT] Stat Exams 07/28/16 03:48 Completed A1C HGB W EST AVG GLUCOSE [CHEM] Stat Lab 07/28/16 14:30 Completed BASIC METABOLIC PANEL [CHEM] DAILY Lab 07/28/16 14:30 Completed BASIC METABOLIC PANEL [CHEM] DAILY Lab 07/29/16 06:00 Completed BASIC METABOLIC PANEL [CHEM] DAILY Lab 07/30/16 06:26 Completed BASIC METABOLIC PANEL [CHEM] DAILY Lab 07/31/16 07:15 Completed BLOOD CULTURE [BLDCUL] Stat Lab 07/28/16 14:40 Completed CBC WITH DIFF [HEME] DAILY Lab 07/28/16 14:30 Completed CBC WITH DIFF [HEME] DAILY Lab 07/29/16 06:00 Completed CBC WITH DIFF [HEME] DAILY Lab 07/30/16 06:26 Completed CBC WITH DIFF [HEME] DAILY Lab 07/31/16 07:15 Completed CBC WITH ELECTRONIC DIFF [HEME] Stat Lab 07/28/16 00:24 Completed CK PROFILE [SP CHEM] Stat Lab 07/28/16 00:24 Completed COMPREHENSIVE METABOLIC PANEL [CHEM] Stat Lab 07/28/16 00:24 Completed D-DIMER [CHEM] Stat Lab 07/28/16 00:24 Completed LACTATE, PLASMA [CHEM] Stat Lab 07/28/16 00:24 Completed LRPC (RED CELLS) [BBK] Routine Lab 07/28/16 00:24 Completed MAGNESIUM [CHEM] Stat Lab 07/28/16 00:24 Completed PRO B-NATRIURETIC PEPTIDE Stat Lab 07/28/16 00:24 Completed PROTIME WITH INR [COAG] Stat Lab 07/28/16 00:24 Completed PTT [COAG] Stat Lab 07/28/16 00:24 Completed TROPONIN T Stat Lab 07/28/16 00:24 Completed TYPE & SCREEN [BBK] Stat Lab 07/28/16 00:24 Completed Albuterol 2.5MG/Ipratrop 0.5MG [Duoneb (A & A)] Med 07/28/16 05:42 Discontinued 3 ml INH Q2H PRN PRN Albuterol 2.5MG/Ipratrop 0.5MG [Duoneb (A & A)] Med 07/28/16 07:30 Discontinued 3 ml INH RTQ4H Albuterol 2.5MG/Ipratrop 0.5MG [Duoneb (A & A)] Med 07/28/16 01:10 Discontinued 6 ml INH NOW ONE Amlodipine [Norvasc] Med 07/28/16 09:00 Discontinued 10 mg PO DAILY Aspirin EC Med 07/28/16 09:00 Discontinued 81 mg PO DAILY Carvedilol [Coreg] Med 07/28/16 09:00 Discontinued 12.5 mg PO BID Ferrous Gluconate [Fergon] Med 07/28/16 09:00 Discontinued 240 mg PO BID Furosemide [Lasix] Med 07/28/16 01:11 Discontinued 40 mg IV NOW ONE Hydrocodone/APAP 10 mg/325 mg [Peyton-10] Med 07/28/16 05:42 Discontinued 1 each PO Q8H PRN PRN Insulin Glargine [Lantus] Med 07/28/16 21:00 Discontinued 20 unit SUBQ QPM Insulin Glargine [Lantus] Med 07/28/16 09:00 Discontinued 40 unit SUBQ QAM Insulin Lispro [Humalog] Med 07/28/16 07:00 Discontinued See Protocol SUBQ 0700,1100,1600,2100 Isosorbide Mononitrate E.r. [Imdur] Med 07/28/16 09:00 Discontinued 60 mg PO DAILY LISINOpril [Prinivil] Med 07/28/16 09:00 Discontinued 20 mg PO DAILY Nitroglycerin Sl [Nitroglycerin] Med 07/28/16 05:42 Discontinued 0.4 mg SL DIRECTED PRN Omeprazole [Prilosec] Med 07/28/16 07:00 Discontinued 20 mg PO DAILY@0700 Ondansetron [Zofran] Med 07/28/16 05:42 Discontinued 4 mg IV Q4H PRN PRN Piperacil/Tazobact 3.375 gm/Ns [Zosyn 3.375 gm/Ns] Med 07/28/16 05:42 Discontinued 3.375 gm in 50 ml IV Q6H Ticagrelor [Brilinta] Med 07/28/16 09:00 Discontinued 90 mg PO BID Tiotropium [place] Inhaler [Spiriva] Med 07/28/16 07:30 Discontinued 1 puff INH RTDAILY Torsemide [Demadex] Med 07/28/16 09:00 Discontinued 20 mg PO DAILY Aerosol Treatments Routine Oth 07/28/16 01:11 Completed Aerosol Treatments Stat Oth 07/28/16 01:11 Completed Telemetry [OM.EQ] Routine Oth 07/28/16 05:42 Active Physical Therapy Eval/Treatment [OM.PT] Routine Ther 07/28/16 05:42 Active Transfer/Admit Order [TRANSFER] Routine Transfer 07/28/16 03:37 Completed Result Diagrams: 07/31/16 07:15 08/02/16 06:28 - XRAY 1 XRAY: Bilateral XRAY Study: Chest Impression: See EMR Report XRAY Interpretation: Mild pulmonary edema - Preliminary ER Departure - Departure Time of Disposition Decision: 03:57 DIAGNOSIS: COPD exacerbation Disposition: ADMITTED INPATIENT 09 Certified Medical Emergency: Emergent Condition: Stable - Critical Care Note This patient required my direct & personal management of CC.: Yes Total Time (mins): 30 Critical Care Statement: This patient required my direct personal management to treat or rule out processes, the absence of which, could potentiallly result in sudden, clinically significant life or limb threatening deterioration. This chart was documented by the indicated scribe, (Marck Mays, Scrkaren) and accurately reflects the services I performed and decisions made by me, Alonzo Ng MD, as attested by the provider's signature.
== END 2016-08-02 15:42 | disposition home or self-care (01) ==
LOC: ED 00:05 → 3N 04:57 → SUATTDRO 04:57
PROVIDERS: ATTEND Internal Medicine

== ENCOUNTER 2016-09-22 15:29 | Inpatient (IN) ==
[2016-09-22 16:46] LABS: BASO% 0.3 % (0.0-0.8); EOS# 0.22 X1000 (0.0-0.7); EOS% 2.9 % (0.0-10.0); HEMATOCRIT 26.9 % (37.0-47.0); HEMOGLOBIN 8.1 g/dL (12.0-16.0); LYMPH# 1.59 X1000 (1.2-3.4); LYMPH% 21.2 % (20.5-51.1); MANUAL DIFF NEEDED? NO; MCH 21.7 PG (27-31); MCHC 30.1 g/dL (33-37); MCV 71.9 FL (81-99); MONO# 0.33 X1000 (0.11-0.59); MONO% 4.4 % (1.7-9.3); MPV 10.9 FL (7.4-10.4); NEUT% 71.2 % (42.2-75.2); PLT 256 X1000 (130-400); RBC 3.74 XMIL (4.2-5.4)
[2016-09-22 17:09] LABS: CALCIUM 9.2 mg/dL (8.8-10.2); MAGNESIUM 2.6 mg/dL (1.5-2.7); POTASSIUM 4.8 mmol/L (3.5-5.1); TOTAL BILIRUBIN 0.15 mg/dL (0.20-1.00); TOTAL PROTEIN 6.8 g/dL (6.3-8.3)
--- NOTE | 2016-09-22 17:21 | Diag Imaging Result Doc PS360 ---
EXAM: CHEST-PORTABLE INDICATION: chf TECHNIQUE: One view COMPARISON: 07/31/2016 FINDINGS: The lungs are grossly clear. There is no discrete pleural fluid collection or pneumothorax. There is stable cardiomegaly. Central vasculature is unremarkable. IMPRESSION: Stable cardiomegaly. No definite acute pathology. Electronically signed by Frank Abdullahi 09/22/2016 5:18 PM
[2016-09-22] MEDS ORDERED: SODIUM CHLORIDE 0.9% INJ ONE (17:22)
[2016-09-22] MEDS ORDERED: PHENERGAN IV ONE (17:22)
--- NOTE | 2016-09-22 17:35 | PROVIDER DOCUMENTATION ---
This chart was entered by Yoly Cannon Scribe, acting as scribe for Krishna Sánchez MD. HPI-Abdominal Pain/GI Problem - General Chief Complaint: N/V/D Stated Complaint: DIZZINESS / N&V TIMES 3 DAYS Time Seen by Provider: 09/22/16 16:02 Source: patient Allergies/Adverse Reactions: Patient Allergies Allergy/AdvReac Type Severity Reaction Status Date / Time No Known Allergies Allergy Verified 09/22/16 16:36 Home Medications: Home Medication List Medication Instructions Recorded Confirmed Last Taken Type Albuterol Sulfate [Proair Hfa] 8.5 gm IH PRN PRN 12/10/14 07/28/16 07/27/16 History Aspirin [Aspir-Low] 81 mg PO DAILY 04/16/16 07/28/16 07/27/16 History Omeprazole 40 mg PO DAILY 04/16/16 07/28/16 07/27/16 History Ferrous Gluconate 240 mg PO BID #0 04/19/16 07/28/16 07/27/16 Rx Ticagrelor [Brilinta] 90 mg PO BID #60 tablet 04/19/16 07/28/16 07/27/16 Rx Isosorbide Mononitrate [Isosorbide 60 mg PO DAILY 06/18/16 07/28/16 07/27/16 History Mononitrate ER] Hydrocodone/APAP 10 mg/325 mg 1 each PO Q8H PRN PRN #20 tablet 06/22/1607/27/16 Rx [[place]-10] Nitroglycerin 0.4 mg SL DIRECTED PRN #15 06/22/16 07/28/16 07/26/16 Rx tab.subl Albuterol [Albuterol Neb] 2.5 mg INH RTQ6H 07/28/16 07/28/16 07/27/16 History Amlodipine Besylate 10 mg PO DAILY 07/28/16 07/28/16 07/27/16 History Carvedilol [Coreg] 12.5 mg PO BID 07/28/16 07/28/16 07/27/16 History LISINOpril [Prinivil] 20 mg PO DAILY 07/28/16 07/28/16 07/27/16 History Torsemide 20 mg PO DAILY 0407/28/16 07/26/16 History Fluticasone/Salmet 250/50 INH 1 puff INH RTBID #1 inhaler 08/02/16 Unknown Rx [Advair 250/50 Diskus] Guaifenesin/Codeine [Robitussin-AC] 10 ml PO Q4-6H PRN PRN #1 udc 08/02/16 Unknown Rx Insulin Glargine [Lantus] 30 units SQ QPM #2 insuln.pen 08/02/16 07/28/16 Rx Insulin Glargine [Lantus] 50 units SQ QAM #2 insuln.pen 08/02/16 07/28/16 Rx Levofloxacin [Levaquin] 250 mg PO Q24H #5 tablet 08/02/16 Unknown Rx Melatonin 3 mg PO QHS #30 tablet 08/02/16 Unknown Rx Prednisone 20 mg PO DAILY #5 tablet 08/02/16 Unknown Rx Tiotropium [place] Inhaler 1 puff INH RTDAILY #1 inhaler 08/02/16 Unknown Rx [Spiriva] - History of Present Illness-ABD Nature of Presenting Problems: Pt is a 65 year old female who came to the ED with a cc of N/V and dizziness. Pt reports that she has been N/V for three days. Abdominal Pain Onset Location: reports: epigastric Pain Radiation: reports: no radiation Quality of Pain: reports: cramping Severity in ED: reports: mild Onset/Duration: reports: 3 days ago Timing: reports: still present Associated Symptoms: reports: dizziness, nausea, vomiting Last BM: unsure Bruising or Bleeding Gums?: No Similar Symptoms Previously?: No Recently seen or treated by another doctor?: No Review of Systems - Adult - REVIEW OF SYSTEMS - ADULT Constitutional: denies: chills, fever Eyes: reports: no symptoms reported Ears, Nose, Mouth & Throat: denies: throat pain, throat swelling Cardiovascular: reports: no symptoms reported Respiratory: reports: no symptoms reported Gastrointestinal: reports: abdominal pain, diarrhea, nausea, vomiting. denies: difficulty swallowing Genitourinary: reports: no symptoms reported Musculoskeletal: reports: no symptoms reported Integumentary: denies: hives, skin thickening Neurological: reports: no symptoms reported Psychiatric: reports: no symptoms reported Endocrine: reports: no symptoms reported Hematologic/Lymphatic: reports: no symptoms reported Allergic/Immunologic: reports: no symptoms reported All Other Systems: Reviewed and Negative Past History - Adult - PAST MEDICAL HISTORY-ADULT Review of Records: reports: Nursing Assessment Review Major Childhood Illnesses: reports: denies history Cardiovascular: reports: CHF, HTN, hyperlipidemia Respiratory: reports: asthma, COPD Gastrointestinal: reports: denies history Obstetrical/Gynecological: reports: denies history Genitourinary: reports: denies history Musculoskeletal: reports: denies history Neurological: reports: CVA Endocrine/Immune: reports: Diabetes, thyroid disorder Other Conditions: reports: denies history - PRIOR SURGERIES/PROCEDURES Surgical/Procedure History: reports: cholecystectomy, BTL, - IMMUNIZATION STATUS Childhood Immunizations: See Nurse Assessment Flu Vaccine: See Nurse Assessment - FAMILY HISTORY Family History: reviewed, not pertinent Physical Exam-General - PHYSICAL EXAM-ADULT Initial Vital Signs Reviewed: Yes - CONSTITUTIONAL General Appearance: appears well, alert - EYES Eyes: PERRL/EOMI, pink conjunctivae - HEAD, EARS, NOSE, MOUTH & THROAT HENMT: normocephalic/atraumatic, moist mucous membranes - NECK Neck: non-tender, full range of motion - RESPIRATORY Respiratory: chest non-tender, lungs clear - CARDIOVASCULAR Cardiovascular: normal peripheral pulses, regular rate, rhythm - GASTROINTESTINAL (ABDOMEN) Abdominal Exam: normal bowel sounds, non tender - MUSCULOSKELETAL Back Exam: normal inspection, no CVA tenderness Extremity: normal range of motion, non-tender - SKIN Integumentary: normal color, normal turgor - NEUROLOGIC Neurologic: grossly normal - PSYCHIATRIC Psych/Mental Status: normal mood/affect, normal thought content, normal thought process, oriented x 3 Progress - PLAN OF CARE/RESULTS Progress/Plan/Lab Results: Vital Signs - 8 hr 09/22/16 15:46 09/22/16 16:24 Temperature 97.5 F L Pulse Rate 72 76 Respiratory Rate 16 20 Blood Pressure 79/30 97/46 O2 Sat by Pulse Oximetry 98 96 Orders Category Date Time Status EKG [EKG] Stat Ther 09/22/16 16:13 Ordered Result Diagrams: 09/22/16 15:55 09/22/16 15:55 - EKG 1 Time of EKG reading by physician:: 16:17 EKG Read and Signed by:: Krishna Sánchez EKG Interpretation (*Must complete 3 of following elements*): Abnormal Rate: 69 (T wave abnormality, consider lateral ischemia ) Rhythm: NSR - CONSULTS/PCP/HOSPITALIST Notification #1 *Consult/PCP/Hospitalist*: james Time Discussed: 17:25 Reason/Comments: spoke to chau Consult Disposition: Admit Departure - Departure Date of Disposition Decision: 09/22/16 Time of Disposition Decision: 17:34 DIAGNOSIS: Chronic GI bleeding ARF (acute renal failure) Qualifiers: Acute renal failure type: unspecified Qualified Code(s): N17.9 - Acute kidney failure, unspecified CHF (congestive heart failure) Qualifiers: Congestive heart failure type: combined Congestive heart failure chronicity: chronic Qualified Code(s): I50.42 - Chronic combined systolic (congestive) and diastolic (congestive) heart failure Disposition: ADMITTED INPATIENT 09 Certified Medical Emergency: Emergent Condition: Stable - Critical Care Note This patient required my direct & personal management of CC.: No This chart was documented by the indicated scribe, (Yoly Cannon Scribe) and accurately reflects the services I performed and decisions made by me, Krishna Sánchez MD, as attested by the provider's signature.
[2016-09-22] MEDS ORDERED: NS 1,000 ML IV ONE (17:40)
[2016-09-22 17:44] LABS: URINE MICRO REVIEW NEEDED? NO; URINE SOURCE VOIDED
[2016-09-22 17:54] LABS: BILIRUBIN URINE NEGATIVE (NEGATIVE); BLOOD URINE LARGE (NEGATIVE); COLOR YELLOW; GLUCOSE URINE NEGATIVE (NEGATIVE); LEUKOCYTES URINE NEGATIVE (NEGATIVE); NITRITE URINE NEGATIVE (NEGATIVE); PROTEIN URINE NEGATIVE (NEGATIVE); SP GRAVITY URINE 1.017; TURBIDITY URINE HAZY (CLEAR); UROBILINOGEN URINE NORMAL (NORMAL)
[2016-09-22 17:55] LABS: UR EPITHELIAL CELLS <10 /HPF (<10); URINE BACTERIA NEGATIVE /HPF; URINE WBC <10 /HPF (<10)
[2016-09-22 18:06] LABS: PROTEIN CREAT RATIO 0.1; UR CREAT RANDOM 172.6 mg/dL (11-20); UR PROT RANDOM 22.4 mg/dL
--- NOTE | 2016-09-22 18:50 | HISTORY AND PHYSICAL ---
CHIEF COMPLAINT: Abdominal pain. HISTORY OF PRESENT ILLNESS: This is a 65-year-old female with a past medical history of COPD, CAD with recent stenting, recently on our service for COPD exacerbation. She comes in today with apparent abdominal pain, nausea and vomiting. However, at the time of evaluation the patient was altered and unable to answer any type of questions. She had apparently received IV Phenergan for nausea, vomiting about 15 minutes prior to hospitalist evaluation. At any rate, we are going to check a stat head CT and ABG to ensure she does not have any other acute process. Thus, history is obtained per chart review. She came into the ER with abdominal pain, nausea, and vomiting for 3 days. She reports epigastric pain without radiating symptoms. Denies any hematemesis or hematochezia. No melena. Denied any other symptoms. Labs were obtained in the ER, she was found to have a fairly profound microcytic anemia as well as new onset acute kidney injury with a creatinine of 2.2 and a BUN of 8.8. It looks like her baseline creatinine is normal around 0.9. Urinalysis obtained reveals that she does have large blood but otherwise insignificant UA although other urine studies are pending. Again, given her acute altered mental status which is likely medication effect we are going to check a head CT and ABG to rule out any toxic or metabolic source of encephalopathy. In the meantime, she will be admitted for further treatment and evaluation. PAST MEDICAL HISTORY: 1. COPD. 2. CAD. 3. Mild congestive heart failure with an EF of 40%. 4. Hypertension. 5. Hyperlipidemia. 6. Diabetes mellitus. 7. Chronic anemia. 8. Obesity. PAST SURGICAL HISTORY: She has had a cholecystectomy, coronary stenting placement, thyroidectomy, appendectomy, right leg surgery. ALLERGIES: No known drug allergies. SOCIAL HISTORY: Remote history of smoking. Quit 2 years ago. No current alcohol or drug use. FAMILY HISTORY: Significant for CAD. REVIEW OF SYSTEMS: Unable to be obtained at this time. ALLERGIES: No known drug allergies. HOME MEDICATIONS: Currently being compiled. PHYSICAL EXAMINATION: VITAL SIGNS: Blood pressure is 97/46, heart rate 76, respiratory rate is 20, O2 saturation 96% on room air. Temperature is 97.5 degrees. GENERAL: This is a obese female, lying in hospital bed in no acute distress but she is quite drowsy. NEUROLOGIC: She is somewhat somnolent but opens her eyes to verbal stimulus, when she talks she is completely slurred and is unable to be understood. She does follow commands without any focal deficits. HEENT: Head is atraumatic and normocephalic. Her pupils are pinpoint bilaterally. Oral mucosa is moist. Oropharynx is clear. Trachea is midline. No JVD. CHEST: Diminished at the bases but clear to auscultation bilaterally. CV: Regular rate and rhythm. S1, S2 is noted. GI: Soft, nondistended, nontender. Bowel sounds are positive. EXTREMITIES: Without edema, clubbing or cyanosis. Pulses palpable bilaterally. DIAGNOSTIC DATA: WBC 7.51, hemoglobin 8.1, hematocrit 26.9, platelet count 256.000. Sodium 138, potassium 4.8, chloride 100, CO2 22, anion gap 16. BUN 88, creatinine 2.2. Glucose 76, calcium 9.2, magnesium 2.6. AST 18, ALT 19, alkaline phosphatase 84, T-bilirubin 0.15, albumin 4. UA shows large blood, 10-20 RBCs. ASSESSMENT AND PLAN: 1. Altered mental status: Likely medication effect but we are going to check a stat head CT and ABG to rule out any acute causes. We will monitor her neuro status and telemetry on the floor. 2. Abdominal pain, nausea vomiting: After further review patient was seen by Dr. Varma in-house in July. She has had a recent coronary stenting and is on dual anti-platelet therapy which she cannot come off of right now. Her diagnosis is likely gastritis or even ulcers. Will continue to treat this with proton pump inhibitor and bowel rest at this time. If she has any worsening pain we will consider a CT but will check an ultrasound as well. 3. Acute kidney injury: Most certainly prerenal secondary to volume depletion from vomiting on top of home use of LIAT inhibition and torsemide. We are going to bolus her a L now and continue fluids at 75. Check a renal ultrasound and urine labs. 4. Microcytic anemia: Likely combination of chronic disease on top of the flow blood loss, possible gastric source. Will continue proton pump inhibitor and check full iron studies. If she continues to drop with IV fluid hydration would consider transfusion. 5. Coronary artery disease: We are going to trend her enzymes as unclear as to exactly why she came in because we cannot get a history at this time. We also need to get her medications verified. 6. Chronic obstructive pulmonary disease: Lungs are clear. Chest x-ray does not show anything acute. We will add p.r.n. nebulizers. 7. Diabetes mellitus: Last hemoglobin A1c 6.7. Will discontinue any of her antidiabetics at this time because her blood sugar was 76. Will recheck a blood sugar now given her mental status. Add pattern sugars, sliding scale insulin and treat hypoglycemia as necessary. 8. DVT prophylaxis will be with SCDs and TEDs given possibility of gastrointestinal bleeding and fairly profound anemia. Further recommendations to follow. Dictated by ROGER Hadley for Fabrizio Eckert MD cc: ROGER Hadley MD
--- NOTE | 2016-09-22 18:50 | Diag Imaging Result Doc PS360 ---
EXAM: HEAD W/O CONTRAST INDICATION: acute AMS COMPARISON: 04/24/2013 FINDINGS: There is fairly extensive patchy low attenuation in the periventricular and subcortical white matter suggesting microangiopathy, stable. There is no definite acute infarct given the limited sensitivity of CT versus MRI. There is no discrete intracranial mass, mass effect, or intracranial hemorrhage. The surrounding soft tissues and bony structures are essentially unremarkable. IMPRESSION: Extensive stable chronic changes. No definite acute intracranial pathology. Electronically signed by Frank Abdullahi 09/22/2016 6:48 PM
--- NOTE | 2016-09-22 21:33 | Diag Imaging Result Doc PS360 ---
EXAM: US ABDOMEN-COMPLETE INDICATION: abd pain/ sabrina COMPARISON: None. FINDINGS: There has been a previous cholecystectomy. The common bile duct is normal in diameter. The liver is prominent measuring up to 20.6 cm in length. The liver echotexture is grossly unremarkable. Portal venous flow is hepatopedal. There is poor visualization of the pancreas. The visualized portion is unremarkable. The aorta and IVC are grossly unremarkable. The spleen is unremarkable. The kidneys are grossly unremarkable. IMPRESSION: Prominent liver but essentially unremarkable ultrasound status post cholecystectomy, otherwise. Electronically signed by Frank Abdullahi 09/22/2016 9:31 PM
[2016-09-22] MEDS: PROTONIX IV SCH (22:01)
[2016-09-22] MEDS: NS 1,000 ML IV SCH (22:01)
[2016-09-22 22:27] LABS: HEMATOCRIT 26.1 % (37.0-47.0); HEMOGLOBIN 7.8 g/dL (12.0-16.0)
[2016-09-23] MEDS: HUMALOG SUBQ SCH ×5 (02:09→20:17)
[2016-09-23 05:43] LABS: HEMOGLOBIN 7.5 g/dL (12.0-16.0); MCH 22.3 PG (27-31); MCV 74.4 FL (81-99); RBC 3.36 XMIL (4.2-5.4)
[2016-09-23 06:13] LABS: IRON SATURATION 9 %; TIBC 339 ug/dL
[2016-09-23 06:17] LABS: AGAP 13; BUN 80 mg/dL (8-22); CALCIUM 8.6 mg/dL (8.8-10.2); CHLORIDE 106 mmol/L (98-107); COSMO 303; HDL 29 mg/dL (45-65); LDL 107 mg/dL; POTASSIUM 5.1 mmol/L (3.5-5.1); SODIUM 141 mmol/L (136-145); TCO2 22 mmol/L (25-35); TOTAL IRON 29 ug/dL (49-151); TRIGLYCERIDES 215 mg/dL (35-135); UNBOUND IRON 310 ug/dL (112-346); VLDL 43 mg/dL
[2016-09-23 06:21] LABS: HEMOGLOBIN A1C 8.5 % (4.8-6.0)
[2016-09-23] MEDS: NS 1,000 ML IV SCH (11:08)
[2016-09-23] MEDS: TYLENOL PO PRN (13:44)
--- NOTE | 2016-09-23 15:57 | PROGRESS NOTE ---
DATE: 09/23/2016 SUBJECTIVE: This patient is completely alert and oriented x3, she is still having dizziness mostly when she tries to get up. She has been complaining of abdominal pain, nausea and vomiting yesterday but today apparently this is much better. She is not complaining of shortness of breath or chest pain. Her hemoglobin was 7.5. I will transfuse 1 unit of PRBC because this patient is having dizziness and also she has history of coronary artery disease. OBJECTIVE: Vital Signs: Temperature 98.4 degrees, pulse 71, respiratory rate 18, blood pressure 133/50, oxygen saturation 100% on room air. HEENT: Head normocephalic. No trauma. PERRLA. Neck: Supple. No JVD. No masses. Central trachea. Chest: Clear to auscultation. No wheezing. No rales. Cardiovascular: RRR. Abdomen: Soft, mild tenderness to palpation at the epigastric area. Extremities: No edema. No clubbing. No cyanosis. Neurological: The patient is alert and oriented x3. No focal deficits. She states that she is a little bit dizzy mostly with physical activity. LABORATORY: WBC 6, hemoglobin 7.5, hematocrit 25, platelet 188,000. Sodium 141, potassium 5.1, chloride 106, bicarbonate 23, BUN 80, creatinine 1.5, glucose 66. Hemoglobin A1c 8.5, calcium 8.6, phosphorus 5.6. Troponins negative x3. ASSESSMENT AND PLAN: 1. Altered mental status resolved. This was likely related to medication effect. CT scan of the head done yesterday did not show any acute pathology. 2. Abdominal pain, nausea and vomiting. This is getting better. She is not complaining of abdominal pain or vomiting today. She is asking for food. This patient was NPO and I will advanced her diet to soft mechanical diet to see how she does. 3. Acute kidney injury. This is getting better. We stopped already all nephrotoxic medications. Today the creatinine is 1.5. We have a creatinine done a couple months ago and was normal between 0.8 and 0.9 and probably this is related with fluid volume depletion secondary to medications and vomiting. 4. Microcytic anemia. Continue to monitor, her hemoglobin today 7.5 and this patient has a past medical history of coronary artery disease. I will transfuse this patient today. 5. Coronary artery disease. Cardiac enzymes have been negative. Will continue to monitor. She is not complaining of chest pain today. 6. Chronic obstructive pulmonary disease. Lungs are clear. Not in exacerbation. 7. Type 2 diabetes. Hemoglobin A1c is. 8.5. The previous one 2 months ago was 6.7. I will continue with the same management for now. 8. Deep vein thrombosis prophylaxis provided with SCDs and FROILAN perez. This patient looks better compared with yesterday. She is not complaining about chest pain, shortness of breath, nausea, vomiting. I already advanced her diet, I will transfuse this patient with 1 unit of PRBC to see how she does. She has been complaining about dizziness. Kidney function is getting better. Upon admission the creatinine was 2.2 and today is 1.5, continue with the same management. I asked already also for occult blood in the stool to rule out any kind of GI bleed. cc: Fabrizio Eckert MD
[2016-09-23 19:28] LABS: INR 0.97; PROTIME 10.2 Seconds (9.2-11.7)
[2016-09-23] MEDS: PROTONIX IV SCH (20:16)
[2016-09-24] MEDS: NS 1,000 ML IV SCH ×3 (01:14→18:00)
--- NOTE | 2016-09-24 05:44 | EKG Report ---
Test Performed on : 09/22/2016 4:17:24 PM Test Reason : low bp Blood Pressure : / mmHG Vent. Rate : 069 BPM Atrial Rate : 069 BPM P-R Int : 176 ms QRS Dur : 100 ms QT Int : 422 ms P-R-T Axes : 056 012 111 degrees QTc Int : 452 ms Normal sinus rhythm. T wave abnormality, consider lateral ischemia Abnormal ECG When compared with ECG of 28-JUL-2016 00:04, No significant change was found Unconfirmed Result
[2016-09-24 06:28] LABS: HEMATOCRIT 31.6 % (37.0-47.0); HEMOGLOBIN 9.7 g/dL (12.0-16.0); MCH 23.3 PG (27-31); MCHC 30.7 g/dL (33-37); MCV 75.8 FL (81-99); MPV 10.7 FL (7.4-10.4); RBC 4.17 XMIL (4.2-5.4)
[2016-09-24 07:19] LABS: AGAP 11; BUN 35 mg/dL (8-22); CALCIUM 8.8 mg/dL (8.8-10.2); CHLORIDE 110 mmol/L (98-107); COSMO 289; POTASSIUM 4.6 mmol/L (3.5-5.1); SODIUM 141 mmol/L (136-145); TCO2 20 mmol/L (25-35)
[2016-09-24] MEDS: HUMALOG SUBQ SCH ×4 (07:30→21:34)
--- NOTE | 2016-09-24 09:37 | EKG Report ---
Test Performed on : 09/24/2016 08:50:24 AM Test Reason : chest pain Blood Pressure : / mmHG Vent. Rate : 075 BPM Atrial Rate : 078 BPM P-R Int : 000 ms QRS Dur : 078 ms QT Int : 364 ms P-R-T Axes : 059 014 078 degrees QTc Int : 406 ms Sinus rhythm. with 2nd degree AV block (Mobitz I). with premature supraventricular complexes. Abnormal ECG When compared with ECG of 22-SEP-2016 16:17, (Unconfirmed) premature supraventricular complexes. are now present Sinus rhythm. is now with 2nd degree AV block (Mobitz I). QRS duration has decreased Confirmed by Amos FAROOQ, Jose Melendez ([id number]) on 09/26/2016 2:54:46 PM
[2016-09-24] MEDS: ZOFRAN IV PRN (10:36)
--- NOTE | 2016-09-24 15:08 | PROGRESS NOTE ---
DATE: 09/24/2016 SUBJECTIVE: This patient is completely alert and oriented x3. She is complaining today of chest pain of chest pain. I asked for an EKG, serial troponins and I consulted cardiology for this. OBJECTIVE: Vital Signs: Temperature 98.6 degrees, pulse 63, respiratory rate 18, blood pressure 141/63, oxygen saturation 99 on room air. HEENT: Head normocephalic. No trauma. PERRLA. Neck: Supple. No JVD. No masses. Central trachea. Chest: Clear to auscultation. No wheezing. No rales. Cardiovascular: RRR. Abdomen: Soft mild tenderness to palpation at the level of the epigastric area. Extremities: No edema. No clubbing. No cyanosis. Neurological: The patient is alert and oriented x3. No focal deficits. No dizziness. LABORATORY: WBC 4.8, hemoglobin 9.7, hematocrit 31.6, platelet 188,000. Sodium 141, potassium 4.6, chloride 110, bicarbonate 20, BUN 35, creatinine 0.9, glucose 90, calcium 8.8, magnesium 2.5. ASSESSMENT AND PLAN: 1. Chest pain. This could be related to her low hemoglobin but this patient was transfused yesterday. I did an echocardiogram that did show some changes/blockage. I asked for troponin and also I consulted Cardiology. 2. Altered mental status resolved. 3. Abdominal pain, nausea and vomiting. This is getting better. No nausea, no vomiting. She is tolerating p.o. 4. Acute kidney injury. This is getting better. Actually the kidney function is normalizing. 5. Microcytic anemia. Continue to monitor. This patient is status post 1 PRBC. The hemoglobin improved from 7.5 to 9.8, will continue to monitor. 6. History of coronary artery disease. Cardiac enzymes has been negative but she is complaining about pain. We will monitor and will follow the recommendations of Cardiology Department. 7. Type 2 diabetes. Hemoglobin A1c is 8.5. The previous one 2 months ago was 6.7. I will continue with the same management for now. It looks like she is not taking care of her diabetes properly. 8. Deep vein thrombosis prophylaxis with SCDs and FROILAN hose. cc: Fabrizio Eckert MD
[2016-09-24] MEDS: TYLENOL PO PRN (15:13)
[2016-09-24] MEDS ORDERED: VENOFER IV ONE (16:34)
--- NOTE | 2016-09-24 18:25 | CONSULTATION ---
DATE OF CONSULTATION: 09/24/2016 CONSULTATION REQUESTED BY: Hospitalist Service. REASON FOR CONSULTATION: Abnormal EKG, abdominal and chest discomfort. HISTORY OF PRESENT ILLNESS: Ms. 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 She presented to this hospital on September 22 with complaints of recurrent abdominal pain, some nausea, vomiting, dizziness. The patient apparently felt dizzy and took all of her blood pressure medications thinking that the dizziness was related to high blood pressure. She ended up feeling much worse, called 911. Upon arrival, they noted that her blood pressure was extremely low. She has been admitted for further management. During the monitoring on the telemetry unit, they have observed a peculiar type of rhythm with what appears to be some sort of junctional rhythm, and they requested an evaluation. PAST MEDICAL HISTORY: Her past history is positive for severe coronary heart disease. She has had previous myocardial infarction and previous stents. Back in December of 2015, they performed several stents in her coronary arteries. They have put her on a combination of Brilinta and aspirin. The patient has been noted to have microcytic anemia since April of this year. She has been admitted to the hospital several times and recently in June of this year she underwent a followup heart catheterization by Dr. Wolfe which showed that she had a proximal patent stent in the circumflex. Beyond the stent there was a 50% stenosis. The right coronary artery showed a patent stent with a 20-30% stenosis. The LAD showed an ostial 30-50%. Ejection fraction 40%. The patient has been noted to have arrhythmia. On recent visit with Dr. Covarrubias, he documented the presence of sinus rhythm with episodes of what appears to be a junctional escape rhythm which is triggered by a premature atrial beat. This resets itself on subsequent beats and it recurs usually in connection with a premature beat. She has pulmonary hypertension. She has COPD, general systemic hypertension, hyperlipidemia, sickle cell trait, history of TIA, bipolar disorder, GERD. PAST SURGICAL HISTORY: She has had cholecystectomy, thyroidectomy, appendectomy, leg surgery. SOCIAL HISTORY: She is a , disabled, lives at home. She has had a total of 8 children, 2 of them . She quit smoking 2 years ago. FAMILY HISTORY: Mother had coronary disease. HOME MEDICATIONS: At this time, she is takin. Spiriva. 2. Brilinta 90 twice a day. 3. Potassium chloride 10 mEq daily. 4. Omeprazole 40 mg daily. 5. Nitroglycerin as needed. 6. Lisinopril 20 mg daily. 7. Isosorbide mononitrate 60 mg daily. 8. Insulin Lantus 15 units in the morning, 30 units in the evening. 9. Aspirin 81 mg daily. 10.Amlodipine 10 mg daily. 11.Albuterol 8.5 as needed. 12.Gabapentin 300 at bedtime. ALLERGIES: She is not allergic to any medicine. REVIEW OF SYSTEMS: She has some issues with balance. She has some difficulty getting around. She has to use a walker. She has some chronic exertional dyspnea. She also has chronic angina pectoris and from time to time she has to take extra nitroglycerin. The pattern has not worsened since her last heart cath about 3 months ago. No other positives other than recurrent abdominal pain. She has been told that she probably has an abdominal ulcer or peptic ulcer somewhere, however, they cannot do a scope because she is committed to stay on dual antiplatelet agents for the next 3 months or so. PHYSICAL EXAMINATION: Vital signs: Blood pressure 141/63, pulse 63, temperature 98.6, respirations 18. General: She is awake, alert, oriented, in no distress. HEENT: Unremarkable. Chest: Sounds clear to auscultation and percussion. Cardiac: Heart sounds are regular and rhythmic. I do not hear a gallop or murmur. Abdomen: Obese, slightly tender diffusely. Extremities: Show decreased pulses. No edema. Neurologic: Moves all extremities, follows commands. Cranial nerves are normal. LABORATORY DATA: BUN 35, creatinine 0.9, sodium 141, potassium 4.6. Hemoglobin 9.7, hematocrit 31.6. Of note, her initial hemoglobin at the time of this admission was 7.8 and subsequently dropped to 7.5. MCV was 71.9. RDW was 20.6. She was given blood transfusion, a total of 1 unit. EKGs show sinus rhythm with first-degree AV block and episode of what appears to be junctional escape. Telemetry shows the same. Chest x-ray shows no acute abnormality. Head CT shows chronic changes, nothing acute. Abdominal ultrasound shows a prominent liver. She is status post cholecystectomy. IMPRESSION: 1. Patient with abnormal EKG which shows transient AV dissociation precipitated by a premature atrial beat. This is probably some sort of entry or exit block at the level of the AV node. However, it is not associated with any symptoms. 2. Coronary heart disease status post stents. 3. Iron-deficiency anemia, microcytic hypochromic anemia. 4. Hypertension. 5. Episode of dizziness and hypotension. 6. Chronic unstable angina pectoris. RECOMMENDATIONS: At this point in time, I would suggest to cut down on her nitrates. I would use only sublingual nitroglycerin as needed. I would try to replenish her iron storage with IV iron. Cardiac meneses, I do not think we need to do any further testing. Her arrhythmia appears to be a benign phenomenon. It has been acknowledged by her school crossing guard in [place] and nothing specific has been recommended. She is being followed clinically. At this point in time, we will observe, and further intervention will depend on her clinical course. cc: Horacio Dunlap MD
[2016-09-24] MEDS ORDERED: NORVASC PO SCH (21:00)
[2016-09-24] MEDS: PROTONIX IV SCH (21:34)
[2016-09-24] MEDS: NORCO-5 PO PRN (21:34)
[2016-09-24] MEDS: NORVASC PO SCH (21:34)
[2016-09-24] MEDS: SODIUM CHLORIDE 0.9% INJ SCH (21:34)
[2016-09-25] MEDS: NS 1,000 ML IV SCH (02:29)
[2016-09-25] MEDS: HUMALOG SUBQ SCH ×4 (06:19→21:12)
--- NOTE | 2016-09-25 06:23 | EKG Report ---
Test Performed on : 09/25/2016 05:28:31 AM Test Reason : arrhythmia Blood Pressure : / mmHG Vent. Rate : 098 BPM Atrial Rate : 071 BPM P-R Int : 200 ms QRS Dur : 092 ms QT Int : 358 ms P-R-T Axes : 064 006 101 degrees QTc Int : 457 ms Sinus rhythm. with premature supraventricular complexes. and with frequent premature ventricular com plexes. Abnormal QRS-T angle, consider primary T wave abnormality Abnormal ECG When compared with ECG of 24-SEP-2016 08:50, (Unconfirmed) premature ventricular complexes. are now present Sinus rhythm. is no longer with 2nd degree AV block (Mobitz I). QT has lengthened Confirmed by Amos FAROOQ, Jose Melendez ([id number]) on 09/26/2016 2:55:34 PM
[2016-09-25 06:58] LABS: HEMATOCRIT 30.3 % (37.0-47.0); HEMOGLOBIN 9.3 g/dL (12.0-16.0); MCH 22.9 PG (27-31); MCHC 30.7 g/dL (33-37); MCV 74.4 FL (81-99); MPV 9.9 FL (7.4-10.4); RBC 4.07 XMIL (4.2-5.4)
[2016-09-25 07:00] LABS: AGAP 9; BUN 18 mg/dL (8-22); CALCIUM 8.5 mg/dL (8.8-10.2); CHLORIDE 108 mmol/L (98-107); COSMO 283; POTASSIUM 4.8 mmol/L (3.5-5.1); SODIUM 140 mmol/L (136-145); TCO2 23 mmol/L (25-35)
[2016-09-25] MEDS: NORCO-5 PO PRN ×3 (07:22→23:34)
[2016-09-25] MEDS ORDERED: VENOFER IV ONE (09:00)
[2016-09-25] MEDS: NORVASC PO SCH ×3 (09:46→21:10)
[2016-09-25] MEDS: ZOFRAN IV PRN (10:36)
[2016-09-25] MEDS ORDERED: NITROGLYCERIN SL PRN (11:06)
--- NOTE | 2016-09-25 19:19 | PROGRESS NOTE ---
DATE: 09/25/2016 SUBJECTIVE: This patient is completely alert and oriented x3. She is still complaining of chest pain but compared with yesterday she feels better. We have a positive occult blood in the stool that is positive. She has been evaluated by gastroenterology department in the past and since this patient is on Brilinta probably they will not do any kind of procedure for now, any way will consult gastroenterology department for further recommendations. OBJECTIVE: Vital Signs: Temperature 97.3 degrees, pulse 70, respiratory rate 16, blood pressure 142/63, O2 saturation 100% on room air. HEENT: Head normocephalic. No trauma. PERRLA. Neck: Supple. No JVD. No masses. Central trachea. Chest: Clear to auscultation. No wheezing. No rales. Abdomen: Soft, mild tenderness to palpation at the level of the periumbilical area and epigastric pain. Extremities: No edema. No clubbing. No cyanosis. Neurological: The patient is alert and oriented x3. No focal deficits. LABORATORY: WBC 4.8, hemoglobin 9.3, hematocrit 30.3, platelets 178,000. Sodium 140, potassium 4.8, chloride 108, bicarbonate 23, BUN 18, creatinine 0.8, glucose 124, calcium 8.5, magnesium 2.2. Troponins negative. ASSESSMENT AND PLAN: 1. Chest pain. Continue to monitor. Cardiology Department is following this patient. We will follow their recommendations. 2. Gastrointestinal bleed. Gastroenterology department has been consulted. They have been on board before. I do not think they are going to do any kind of procedure during this hospitalization. 3. Altered mental status. Resolved. 4. Abdominal pain, nausea and vomiting. Resolved. 5. Acute kidney injury. Resolved. 6. Microcytic anemia status post transfusion. Hemoglobin has been stable. Will monitor. 7. History of coronary artery disease, she has been complaining of chest pain but cardiac enzymes are normal and no EKG changes related to ischemia. 8. Type 2 diabetes. Hemoglobin A1c is 8.5, the previous one 2 months ago was 6.7. I will continue with the same management for now. 9. Deep vein thrombosis prophylaxis with SCDs and FROILAN hose. This patient is still on Brilinta. cc: Fabrizio Eckert MD
[2016-09-25] MEDS: PROTONIX IV SCH (21:10)
[2016-09-25] MEDS: SODIUM CHLORIDE 0.9% INJ SCH (21:10)
[2016-09-25] MEDS: BRILINTA PO SCH (21:10)
[2016-09-26] MEDS: NS 1,000 ML IV SCH (04:31)
[2016-09-26 06:10] LABS: BASO% 0.1 % (0.0-0.8); EOS# 0.23 X1000 (0.0-0.7); EOS% 3.3 % (0.0-10.0); HEMATOCRIT 28.1 % (37.0-47.0); HEMOGLOBIN 8.6 g/dL (12.0-16.0); IMM GRAN# 0.02 X1000 (0.0-0.04); IMM GRAN% 0.3 % (0.0-0.5); LYMPH# 1.36 X1000 (1.2-3.4); LYMPH% 19.3 % (20.5-51.1); MANUAL DIFF NEEDED? NO; MCH 22.8 PG (27-31); MCHC 30.6 g/dL (33-37); MCV 74.3 FL (81-99); MONO# 0.45 X1000 (0.11-0.59); MONO% 6.4 % (1.7-9.3); MPV 10.5 FL (7.4-10.4); NEUT% 70.6 % (42.2-75.2); PLT 173 X1000 (130-400); RBC 3.78 XMIL (4.2-5.4)
[2016-09-26] MEDS: HUMALOG SUBQ SCH ×4 (06:11→21:19)
[2016-09-26 06:20] LABS: AGAP 10; BUN 13 mg/dL (8-22); CALCIUM 8.6 mg/dL (8.8-10.2); CHLORIDE 108 mmol/L (98-107); COSMO 284; POTASSIUM 4.6 mmol/L (3.5-5.1); SODIUM 141 mmol/L (136-145); TCO2 23 mmol/L (25-35)
[2016-09-26] MEDS: NORVASC PO SCH ×2 (09:51→21:19)
[2016-09-26] MEDS: BRILINTA PO SCH ×2 (09:52→21:19)
[2016-09-26] MEDS: ZOFRAN IV PRN (10:23)
[2016-09-26] MEDS: NORCO-5 PO PRN ×2 (10:48→21:19)
--- NOTE | 2016-09-26 17:00 | PROGRESS NOTE ---
DATE: 09/26/2016 SUBJECTIVE: This patient is completely alert and oriented x3. This patient states that sometimes she feels dizzy, but compared with the admission, she is much better. She is still complaining of chest pain, but the pain is localized at the level of the mid sternal area and is painful with palpation. I do not think this pain is related with any cardiac issues. Gastroenterology department has evaluated this patient, pending report. OBJECTIVE: Vital Signs: Temperature 98.3, pulse 64, respiratory rate 18, blood pressure 148/63, oxygen saturation 100% on room air. HEENT: Head normocephalic. No trauma. PERRLA. Neck: Supple. No JVD. No masses. Central trachea. Chest: Clear to auscultation. No wheezing. No rales. Abdomen: Soft, mild tenderness to palpation at the level of the periumbilical area and epigastric pain. Chest: Clear to auscultation. No wheezing. No rales. Painful to palpation at the level of the mid sternal area with palpation. Extremities: No edema. No clubbing. No cyanosis. Neurological: The patient is alert and oriented x3. No focal neurological deficits. LABORATORY: WBC 7, hemoglobin 8.6, hematocrit 28.1, platelets 173. Sodium 141, potassium 4.6, chloride 108, bicarbonate 23, BUN 13, creatinine 0.8, glucose 142, calcium 8.6. ASSESSMENT AND PLAN: 1. Chest pain. Continue to monitor. Cardiology Department is following this patient. We will continue following the recommendation. I do not think this patient has a pain related with acute coronary syndrome, it looks more like osteochondritis. 2. Gastrointestinal bleed. Gastroenterology department has been consulted. As per the patient, they have been talking about her condition. I do not think they are going to do any kind of procedure during this hospitalization. This patient is on anticoagulation because of a recent cardiac stent placement. 3. Altered mental status, resolved. 4. Abdominal pain, nausea and vomiting, resolved. 5. Acute kidney injury. Resolved. 6. Microcytic anemia, status post transfusion. Hemoglobin has been decreasing a little bit, will monitor. 7. History of coronary artery disease. She has been complaining of chest pain, but cardiac enzymes are normal and no EKG changes related to ischemia. 8. Type 2 diabetes. Hemoglobin A1c is 8.5. The previous one 2 months ago was 6.7. I will continue with the same management for now. 9. Deep vein thrombosis prophylaxis with sequential compression devices and FROILAN hose. This patient also is on anticoagulation. She is on Brilinta. cc: Fabrizio Eckert MD
[2016-09-26] MEDS: PROTONIX IV SCH (21:18)
[2016-09-27] MEDS: NORCO-5 PO PRN ×3 (03:23→15:28)
--- NOTE | 2016-09-27 05:58 | CONSULTATION ---
DATE OF CONSULTATION: 09/25/2016 REFERRING PHYSICIAN: Fabrizio Eckert M.D. INDICATION FOR CONSULTATION: 1. Abdominal pain. 2. Nausea with vomiting. HISTORY OF PRESENT ILLNESS: The patient is a 65-year-old female, who presented to the hospital for evaluation of altered mental status. She was admitted for evaluation of nausea with vomiting and abdominal pain. She had received IV Phenergan for the nausea with vomiting and had a slightly altered mental status at the time of admission. She reports 3 days of nausea with vomiting, epigastric pain, and loose stools. She denies hematemesis or hematochezia as well as, melena. She reports epigastric pain with radiation to the left upper quadrant. She has had long-standing microcytic anemia but has been unable to have an endoscopy due to the recent placement of multiple cardiac stents. She reports that she is followed by Dr. Strauss over in [place] for GI and does not want any evaluation until such time that Dr. Strauss and Dr. Covarrubias, her tile and marble setter in [place], determine that she is clear. She has been told that she is not to stop her Brilinta or aspirin until December 2016. Therefore, she refuses further consultation. PAST MEDICAL HISTORY: 1. Coronary artery disease with placement of 3 cardiac stents. She has multi- vessel disease and ejection fraction of 40%. She is currently on a combination of Brilinta and aspirin. 2. COPD. 3. Hypertension. 4. Hyperlipidemia. 5. Sickle-cell trait. 6. TIA. 7. Bipolar disorder. 8. GERD. 9. Iron deficiency anemia. 10. Diabetes type 2. PAST SURGICAL HISTORY: 1. Appendectomy. 2. Thyroidectomy. 3. Cholecystectomy. 4. Surgery on her right leg. MEDICATION ALLERGIES: None. HOME MEDICATIONS: 1. Spiriva. 2. Brilinta. 3. Potassium chloride. 4. Omeprazole. 5. Nitroglycerin. 6. Lisinopril. 7. Isosorbide mononitrate. 8. Lantus insulin. 9. Aspirin. 10. Amlodipine. 11. Albuterol. 12. Gabapentin. SOCIAL HISTORY: The patient is a , disabled, and lives at home. She bore a total of 8 children and has 6 children who are living. She is a previous smoker. She denies alcohol and recreational drug use. FAMILY HISTORY: According to the computer, is remarkable for coronary artery disease. PHYSICAL EXAMINATION: General: She is in no acute distress. Vital Signs: Her blood pressure is 116/74, pulse 79, respirations 16, temperature of 97.9 degrees. HEENT: Unremarkable. There is no evidence of jaundice. Her oropharyngeal mucosa membranes are unremarkable. Lungs: Clear to auscultation with normal expiratory effort. Cardiovascular: She has regular rate and rhythm. No murmurs, gallops, or rubs. Abdomen: Her abdominal Reveals normoactive bowel sounds. The abdomen is soft in the epigastrium and periumbilical area. There is no rebound or guarding. Extremities: Bilaterally are negative for cyanosis, clubbing, or edema. Neurologic: She is alert and oriented x3. OBJECTIVE DATA: Remarkable for hemoglobin of 9.3 with hematocrit of 30.3, and a white count of 4.80. She has 178,000 platelets. Her MCV is 74.4, with an MCH of 22.9. Sodium is 140, potassium 4.8, chloride 108, CO2 of 23, BUN 18, creatinine 0.8 with a glucose of 124. Calcium is 8.5, magnesium 2.2. IMPRESSION: 1. Nausea with vomiting. 2. Abdominal pain. 3. History of gastroesophageal reflux disease. According to the history. 4. Anemia. RECOMMENDATION: 1. The patient had her last cardiac stent placed in December 2015. Therefore, I recommend delaying any endoscopic procedure until after December 2016 in agreement with her tile and marble setter. 2. The patient has a local dairy bacteriologist in [place] and would like to follow up with her local dairy bacteriologist. Therefore, we will sign off. Thank you for allowing us to participate in her care. cc: MD Fabrizio Munoz MD Luis N. Villanueva, MD MTDD
[2016-09-27 06:41] LABS: BASO% 0.3 % (0.0-0.8); EOS% 2.8 % (0.0-10.0); HEMOGLOBIN 8.3 g/dL (12.0-16.0); LYMPH% 15.2 % (20.5-51.1); MANUAL DIFF NEEDED? YES; MCH 22.9 PG (27-31); MCHC 30.7 g/dL (33-37); MCV 74.6 FL (81-99); MONO# 0.39 X1000 (0.11-0.59); MONO% 5.4 % (1.7-9.3); MPV 11.1 FL (7.4-10.4); NEUT% 76.3 % (42.2-75.2); PLT 181 X1000 (130-400); RBC 3.62 XMIL (4.2-5.4)
[2016-09-27] MEDS: HUMALOG SUBQ SCH ×4 (07:01→21:00)
[2016-09-27 07:06] LABS: AGAP 11; BUN 12 mg/dL (8-22); CALCIUM 8.8 mg/dL (8.8-10.2); CHLORIDE 105 mmol/L (98-107); COSMO 282; POTASSIUM 4.3 mmol/L (3.5-5.1); SODIUM 139 mmol/L (136-145); TCO2 23 mmol/L (25-35)
[2016-09-27 07:42] LABS: LYMPHS 22 % (21-51); MONO 6 % (1-9)
[2016-09-27] MEDS: NORVASC PO SCH ×2 (08:13→21:00)
[2016-09-27] MEDS: BRILINTA PO SCH ×2 (08:13→21:00)
--- NOTE | 2016-09-27 10:40 | PROGRESS NOTE ---
DATE: 09/27/2016 SUBJECTIVE: This patient is feeling better. She is completely alert and oriented x3. She has generalized weakness and she states that she is not going to be able to walk at home. Apparently, she has a history of gout. I do not see any bone abnormality in her feet, but I will ask for a uric acid and also will ask for physical therapy evaluation. Probably, this patient will need to be discharged to a rehab center. OBJECTIVE: Vital Signs: Temperature 98.7 degrees, pulse 72, respiratory rate 18, blood pressure 144/61, O2 saturation 100% on room air. HEENT: Head normocephalic. No trauma. PERRLA. Neck: Supple. No JVD. No masses. Central trachea. Chest: Clear to auscultation. No wheezing. No rales. Abdomen: Soft. Mild tenderness to palpation at the level of the periumbilical area and epigastric pain. Lungs: Clear to auscultation. No wheezing. No rales. Chest: Painful to palpation at the level of the mid sternal area. Extremities: No edema. No clubbing. No cyanosis. Mild to moderate pain at the level of the plantar surface of the right foot. Neurologic: Patient is alert and oriented x3. She moves all 4 extremities. LABORATORY: WBC 7.2, hemoglobin 8.3, hematocrit 27, platelets 181,000. Sodium 139, potassium 4.3, chloride 105, bicarbonate 23, BUN 12, creatinine 0.7, glucose 187, calcium 8.8. ASSESSMENT AND PLAN: 1. Chest pain, likely related to osteochondritis. Continue with the same management. This is not cardiac chest pain. Negative cardiac enzymes. 2. Gastrointestinal bleed. Gastroenterology Department has been consulted. They are not going to do any kind of procedure at this moment because this patient is on Brilinta. Once this patient is off Brilinta in December, she will get the endoscopy done. 3. Altered mental status, resolved. 4. Abdominal pain, nausea, and vomiting, resolved. 5. Acute kidney injury, resolved. 6. Microcytic anemia, status post transfusion. Hemoglobin and hematocrit have been decreasing slowly. Will monitor. 7. History of coronary artery disease. She has been complaining of chest pain, but this is related to osteochondritis. 8. Type 2 diabetes. Hemoglobin A1c is 8.5. The previous one 2 months ago was 6.7. I will continue with the same management for now. 9. Deep vein thrombosis prophylaxis with SCDs and FROILAN hose. This patient is also on Brilinta. cc: Fabrizio Eckert MD
[2016-09-27] MEDS: ZOFRAN IV PRN (17:27)
[2016-09-27] MEDS: PROTONIX PO SCH (22:25)
[2016-09-28] MEDS: NORCO-5 PO PRN ×4 (00:54→21:26)
[2016-09-28 06:01] LABS: MANUAL DIFF NEEDED? NO
[2016-09-28 06:26] LABS: BASO% 0.2 % (0.0-0.8); EOS# 0.11 X1000 (0.0-0.7); EOS% 1.3 % (0.0-10.0); HEMATOCRIT 25.5 % (37.0-47.0); IMM GRAN# 0.02 X1000 (0.0-0.04); IMM GRAN% 0.2 % (0.0-0.5); LYMPH# 1.06 X1000 (1.2-3.4); MCH 23.6 PG (27-31); MCHC 31.4 g/dL (33-37); MCV 75.2 FL (81-99); MONO# 0.61 X1000 (0.11-0.59); MONO% 6.9 % (1.7-9.3); MPV 10.9 FL (7.4-10.4); NEUT% 79.4 % (42.2-75.2); PLT 190 X1000 (130-400); RBC 3.39 XMIL (4.2-5.4)
[2016-09-28 06:35] LABS: AGAP 13; BUN 11 mg/dL (8-22); CALCIUM 8.6 mg/dL (8.8-10.2); CHLORIDE 102 mmol/L (98-107); COSMO 281; POTASSIUM 3.9 mmol/L (3.5-5.1); SODIUM 138 mmol/L (136-145); TCO2 23 mmol/L (25-35)
[2016-09-28] MEDS: HUMALOG SUBQ SCH ×4 (06:46→21:20)
[2016-09-28] MEDS: NORVASC PO SCH ×2 (08:48→21:26)
[2016-09-28] MEDS: TYLENOL PO PRN (08:48)
[2016-09-28] MEDS: BRILINTA PO SCH ×2 (08:49→21:26)
[2016-09-28] MEDS: PRINIVIL PO SCH (08:49)
[2016-09-28] MEDS: FERROUS SULFATE PO SCH ×2 (08:53→21:26)
[2016-09-28] MEDS ORDERED: ZYLOPRIM PO SCH (09:00)
[2016-09-28] MEDS: ZOFRAN IV PRN (13:08)
[2016-09-28] MEDS ORDERED: COLCRYS PO ONE (14:22)
--- NOTE | 2016-09-28 16:57 | PROGRESS NOTE ---
DATE: 09/28/2016 SUBJECTIVE: This patient is feeling better. She is completely alert and oriented x3. She is still complaining of right foot diffuse pain, I checked her uric acid and it was elevated at 7.9, I placed this patient on colchicine and I will monitor this. She is not complaining of chest pain today and the hemoglobin dropped a little bit compared with yesterday. I will continue to monitor this patient during the weekend. OBJECTIVE: Vital Signs: Temperature 99 degrees, pulse 92, respiratory rate 18, blood pressure 133/61, oxygen saturation 98 on room air. HEENT: Head normocephalic. No trauma. PERRLA. Neck: Supple. No JVD. No masses. Central trachea. Chest: Clear to auscultation. No wheezing. No rales. Pain to palpation at the level of the midsternal area. Abdomen: Soft, nontender, nondistended. No hepatosplenomegaly. Cardiovascular: RRR. Extremities: No edema. No clubbing. No cyanosis. Mild to moderate pain at the level of the plantar surface and medial part of the right foot. Neurological: The patient is alert, oriented x3. No focal neurological deficits. LABORATORY: WBC 8.8, hemoglobin 8, hematocrit 25.5, platelets 190,000. Sodium 138, potassium 3.9, chloride 102, bicarbonate 23, BUN 11, creatinine 0.7, glucose 203, calcium 8.6. ASSESSMENT AND PLAN: 1. Chest pain, likely related to osteochondritis. Continue with the same management. 2. Gastrointestinal bleed. Will monitor the hemoglobin and hematocrit, gastroenterology department will do not any kind of procedure at this time because this patient is on Brilinta. Once this patient is off this medication she will need an endoscopy, likely this is going to be on December of this year. 3. Altered mental status, resolved. 4. Abdominal pain, nausea, vomiting, resolved. 5. Acute kidney injury, resolved. 6. Normocytic anemia status post transfusion. She received iron IV and now she is getting iron and now I prescribed iron p.o. 7. History of coronary artery disease. She has been complaining of chest pain but this is related to osteochondritis. 8. Type 2 diabetes. Her hemoglobin A1c is 8.5, the previous one 2 months ago was 6.7. Will continue with the same management for now. 9. Deep vein thrombosis prophylaxis with SCDs and FROILAN hose. Patient also is on Brilinta. cc: Fabrizio Eckert MD
[2016-09-28] MEDS: PROTONIX PO SCH (21:26)
[2016-09-29] MEDS: TYLENOL PO PRN (00:29)
[2016-09-29] MEDS: NORCO-5 PO PRN ×3 (05:56→21:43)
[2016-09-29 06:13] LABS: MANUAL DIFF NEEDED? NO
[2016-09-29 06:21] LABS: BASO% 0.3 % (0.0-0.8); EOS# 0.17 X1000 (0.0-0.7); EOS% 2.4 % (0.0-10.0); HEMATOCRIT 24.1 % (37.0-47.0); HEMOGLOBIN 7.4 g/dL (12.0-16.0); LYMPH# 1.18 X1000 (1.2-3.4); LYMPH% 16.8 % (20.5-51.1); MCH 23.4 PG (27-31); MCHC 30.7 g/dL (33-37); MCV 76.3 FL (81-99); MONO% 5.7 % (1.7-9.3); MPV 10.7 FL (7.4-10.4); NEUT% 74.8 % (42.2-75.2); PLT 192 X1000 (130-400); RBC 3.16 XMIL (4.2-5.4)
[2016-09-29 06:46] LABS: AGAP 10; BUN 12 mg/dL (8-22); CALCIUM 8.4 mg/dL (8.8-10.2); CHLORIDE 103 mmol/L (98-107); COSMO 281; POTASSIUM 4.3 mmol/L (3.5-5.1); SODIUM 139 mmol/L (136-145); TCO2 26 mmol/L (25-35)
[2016-09-29] MEDS: FERROUS SULFATE PO SCH ×2 (08:40→21:42)
[2016-09-29] MEDS: NORVASC PO SCH ×2 (08:40→21:42)
[2016-09-29] MEDS: BRILINTA PO SCH ×2 (08:41→21:42)
[2016-09-29] MEDS: PRINIVIL PO SCH (08:41)
[2016-09-29] MEDS: HUMALOG SUBQ SCH ×3 (08:43→21:42)
[2016-09-29] MEDS ORDERED: COLCRYS PO SCH (09:00)
[2016-09-29] MEDS ORDERED: VENOFER IV ONE (11:21)
[2016-09-29] MEDS ORDERED: NS 500 ML IV SCH (11:28)
--- NOTE | 2016-09-29 12:10 | PROGRESS NOTE ---
DATE: 09/29/2016 CHIEF COMPLAINT: Chest discomfort, anemia, coronary heart disease. SUBJECTIVE: Mrs. Monge has continued to have issues with her hemoglobin gradually dropping. She does have microcytic hypochromic indices on her blood count. She acknowledges having recurrent chest pains for which she has been taking nitroglycerin sublingual.she is hurting in the ankles. she thinks is gout. uric acid was high. OBJECTIVE: Vital signs: Blood pressure is 131/54, temperature 99.1, pulse 68, respirations 17. General: She is awake, alert, oriented, in no distress. HEENT: Unremarkable. Chest: Clear to auscultation and percussion. Cardiac: Heart sounds are regular and rhythmic, no gallop or murmur. Abdomen: Obese, nontender, no hepatomegaly. Extremity: Show tender ankles. She says that she is having a gout attack and her uric acid is actually high. Neurological: She moves four extremities, follows commands. LABORATORY WORK: Hemoglobin is 7.4, hematocrit is 24.1, white count 7000, platelet count is normal at 192,000. Sodium 139, potassium 4.3, BUN 12, creatinine 0.8. IMPRESSION: 1. Patient who has severe coronary heart disease with progression of disease noted on serial angiograms beginning in the latter part of 2014 when they at that time put a proximal stent to the circumflex system and into the posterior descending branch of the right coronary artery. Then in December of 2015, they put a stent to the proximal right coronary artery due to progression of disease. At that time, they documented stenosis at the ostium of the LAD. On followup angiogram dated June of 2016, the visualization of the ostium of the LAD was suboptimal. I believe that the patient does have a significant stenosis right there, and the circumflex lesion appeared to have progressed in severity when compared to the previous angiogram from December of 2015. 2. Patient has angina pectoris FC II-III of the [place] Classification for Angina. 3. Iron-deficiency anemia. 4. Hypertension. 5. Frequent PACs with episodes of junctional beat. 6. Gout-hyperuricemia. RECOMMENDATION: At this point in time, I would suggest to give her intravenous iron supplements to try and build her hemoglobin up a little bit. We will put her on stool softeners because she complains of constipation. We will have to discuss about the possibility of giving her an IV antiplatelet drug (Eptifibatide) if we decide to put Brilinta on hold and then discontinue the antiplatelet medication hours before the colonoscopy or endoscopy and then resume it subsequently to minimize the possibility of acute coronary ischemia or thrombosis. The patient is very worried or hesitant to discontinue her antiplatelet agents because her food safety coordinator has warned her against doing that. It may be best to pursue that in [facility] in case she were to develop acute coronary ischemia. We will sit down with Dr. Mendoza and Dr. Santoyo and decide what may be best to do for her. cc: Horacio Dunlap MD MTDD
--- NOTE | 2016-09-29 15:30 | PROGRESS NOTE ---
DATE: 09/29/2016 SUBJECTIVE: This patient is still complaining of chest pain today. She is still complaining of bilaterally feet pain. I have been using colchicine for the acute gout flare but it did not work, probably because this patient is having problems with GI absorption secondary to GI bleed. OBJECTIVE: Vital Signs: Temperature 98.8 degrees, pulse 70, respiratory rate 16, blood pressure 118/49, oxygen saturation 100% on room air. HEENT: Head normocephalic. No trauma. PERRLA. Neck: Supple. No JVD. No masses. Central trachea. Chest: Clear to auscultation. No wheezing. No rales. Painful to palpation at the level of the sternal area. Abdomen: Soft, nontender, nondistended. No hepatosplenomegaly. Extremities: No edema. No clubbing. No cyanosis. Pain to palpation at the level of the feet. Neurological examination: The patient is alert and oriented x3. No focal deficits. LABORATORY: WBC 7, hemoglobin 7.4, hematocrit 24.1, platelets 192,000. Sodium 139, potassium 4.3, chloride 103, bicarbonate 26, BUN 12, creatinine 0.8, glucose 170, calcium 8.4. ASSESSMENT AND PLAN: 1. Chest pain. This is likely related to osteochondritis. At the beginning this patient had a hemoglobin really low, so the pain also can be related to severe anemia. 2. Gastrointestinal bleed. This patient is on Brilinta. Gastroenterology Department already evaluated this patient and they decided not to do an endoscopy because this patient is on this medication, but the hemoglobin has been dropping. I talked to Cardiology, Dr. Dunlap, and he re- evaluated the patient. He will call her primary box office clerk at [facility], Dr. Covarrubias, next Saturday to see if we can figure out how and where to do an endoscopy. For now we will continue with the same medication. 3. Altered mental status resolved. 4. Abdominal pain, nausea and vomiting resolved. 5. Acute kidney injury resolved. 6. Normocytic anemia status post transfusion. This patient's hemoglobin is low again today. I will transfuse this patient with 2 PRBCs and also Cardiology put this patient on iron IV. 7. Gout flare. I tried colchicine yesterday and today and it did not work. I will start this patient with methylprednisolone IV, we will monitor. 8. Constipation. We will start this patient on a stool softener. 9. Type 2 diabetes. Her hemoglobin A1c is 8.5, the previous one 2 months ago was 6.7. We will continue with the same management for now. 10. Deep vein thrombosis prophylaxis. This patient is on Brilinta. Continue with SCDs as well. Overall, this patient is stable. I had a conversation with Dr. Dunlap and he will talk to Dr. Covarrubias who is her primary box office clerk. The plan is to see if we can stop the Brilinta to get an EGD done or if we need to transfer this patient to another facility to do that. Anyway on Saturday we will have a new plan. Dr. Santoyo will be notified. cc: Fabrizio Eckert MD
[2016-09-29] MEDS: VENOFER 200 MG in NS 150 ML IV SCH (15:36)
[2016-09-29] MEDS: PERICOLACE PO SCH ×2 (15:36→21:42)
[2016-09-29] MEDS: SOLU-MEDROL IV SCH (15:37)
[2016-09-29] MEDS: PROTONIX PO SCH (21:42)
[2016-09-29] MEDS: ZOFRAN IV PRN (23:34)
[2016-09-30] MEDS: SOLU-MEDROL IV SCH (02:52)
[2016-09-30 06:31] LABS: BASO% 0.1 % (0.0-0.8); HEMATOCRIT 28.4 % (37.0-47.0); HEMOGLOBIN 8.8 g/dL (12.0-16.0); IMM GRAN# 0.02 X1000 (0.0-0.04); IMM GRAN% 0.2 % (0.0-0.5); LYMPH# 0.35 X1000 (1.2-3.4); LYMPH% 3.9 % (20.5-51.1); MANUAL DIFF NEEDED? YES; MCH 23.3 PG (27-31); MCV 75.3 FL (81-99); MONO# 0.12 X1000 (0.11-0.59); MONO% 1.3 % (1.7-9.3); MPV 9.9 FL (7.4-10.4); NEUT% 94.5 % (42.2-75.2); PLT 224 X1000 (130-400); RBC 3.77 XMIL (4.2-5.4)
[2016-09-30] MEDS: HUMALOG SUBQ SCH ×5 (07:05→23:13)
[2016-09-30 07:07] LABS: AGAP 15; BUN 18 mg/dL (8-22); CALCIUM 8.9 mg/dL (8.8-10.2); CHLORIDE 101 mmol/L (98-107); COSMO 286; POTASSIUM 4.8 mmol/L (3.5-5.1); SODIUM 137 mmol/L (136-145); TCO2 21 mmol/L (25-35)
[2016-09-30 07:29] LABS: BANDS 4 % (0-1); LYMPHS 4 % (21-51); NRBC 1 % (0-0)
[2016-09-30] MEDS: BRILINTA PO SCH ×2 (08:57→23:12)
[2016-09-30] MEDS: PERICOLACE PO SCH ×2 (08:57→23:12)
[2016-09-30] MEDS: NORVASC PO SCH ×2 (08:57→23:12)
[2016-09-30] MEDS: FERROUS SULFATE PO SCH ×2 (08:57→23:12)
[2016-09-30] MEDS: PRINIVIL PO SCH (08:58)
[2016-09-30] MEDS ORDERED: VENOFER IV ONE (09:00)
[2016-09-30] MEDS ORDERED: DULCOLAX PR ONE (09:55)
--- NOTE | 2016-09-30 11:40 | PROGRESS NOTE ---
DATE: 09/30/2016 CHIEF COMPLAINT: Chest pain, weakness. SUBJECTIVE: Ms. Monge has not had any further chest pain since yesterday. She has received blood transfusion. She has also received a couple of units of iron infusion. Her ankle pain is somewhat better. She is resting comfortably right now. OBJECTIVE: Blood pressure is 148/68, temperature 97.6, pulse 89, respirations 20. She is awake and alert, no distress. HEENT: Normal. Chest: Clear to auscultation and percussion. Heart sounds are regular and rhythmic. No gallop or murmur is noted. Abdomen is nontender. Extremities showed no edema. Slight tenderness at both ankles, consistent with history of gout. Neurologic: Basically normal. She moves all 4 extremities and follows commands. DIAGNOSTIC DATA: Telemetry shows some occasional PACs. No ventricular arrhythmia. Blood work today shows hemoglobin has gone up to 8.8, hematocrit 28.4, her band count is 4%, neutrophils 92%. Sodium is 137, potassium 4.8, BUN is normal, creatinine 0.8. IMPRESSION: 1. The patient has chronic angina pectoris from multivessel coronary artery disease, status post stents, first to right coronary PDA and circumflex in 2014 and subsequently proximal right coronary artery in 2016. Presently on ongoing therapy with Brilinta and aspirin. 2. Anemia secondary to iron deficiency, presumably chronic gastrointestinal loss. 3. History of hypertension. 4. Hyperuricemia. 5. Premature atrial contractions. RECOMMENDATIONS: At this point in time, we will continue with iron replenishment. I will discuss with her billet inspector in [place] tomorrow whether or not we should pursue upper and lower endoscopy here or put her on an infusion of Integrilin after discontinuation of Brilinta and aspirin and do the procedure in [place] in case she develops acute coronary syndrome during the withholding of Brilinta. The patient has developed progression of coronary heart disease, and she may well end up requiring a double coronary bypass procedure in the near future. We will give her the advice after discussion with her usual physicians. cc: Horacio Dunlap MD
--- NOTE | 2016-09-30 11:50 | PROGRESS NOTE ---
DATE: 09/30/2016 SUBJECTIVE: This patient states that she is feeling better. Her feet are not that painful today. She denies nausea, vomiting. No chest pain. No dizziness. She is complaining of constipation. She was placed on stool softeners yesterday. I will give her today a Dulcolax suppository. OBJECTIVE: Vital Signs: Temperature 97.6 degrees, pulse 89, respiratory rate 20, blood pressure 148/68, oxygen saturation 97% on room air. HEENT: Head normocephalic. No trauma. PERRLA. Neck: Supple. No JVD. No masses. Central trachea. Chest: Clear to auscultation. No wheezing. No rales. Painful to palpation at the level of the sternal area. Abdomen: Soft, nontender, nondistended. No hepatosplenomegaly. Extremities: No edema. No clubbing. No cyanosis. Tenderness to palpation at the level of the feet. Neurological: The patient is alert and oriented x3. No focal neurological deficits. LABORATORY: WBC 9, hemoglobin 8.8, hematocrit 28.4, platelets 224,000. Sodium 137, potassium 4.8, chloride 101, bicarbonate 21, BUN 18, creatinine 0.8, glucose 284, calcium 8.9. ASSESSMENT AND PLAN: 1. Chest pain, likely related to costochondritis. Also at the beginning her hemoglobin was low, so the pain also can be related to severe anemia. 2. Gastrointestinal bleed. This patient is on Brilinta. Gastroenterology department already evaluated this patient and they decided not to do an endoscopy because of the patient is on this medication. But, the hemoglobin has been dropping and yesterday I would transfuse this patient. I talked to cardiology, Dr. Dunlap, and he will talk to her shipsmith, Dr. Covarrubias, to see if we can stop the medication or transfer the patient to [place]. Dr. Dunlap will talk to Dr. Covarrubias next Saturday/tomorrow. 3. Altered mental status. Resolved. 4. Abdominal pain, nausea, and vomiting. Resolved. 5. Acute kidney injury. Resolved. 6. Normocytic anemia status post transfusion. Yesterday this patient received 2 PRBCs. Will continue to monitor. This patient also is getting iron IV. 7. Gout flare. I tried with colchicine and the pain did not go away. I started this patient on methylprednisolone IV twice a day. She feels better. I will continue with the methylprednisolone IV but once a day. 8. Constipation. This patient was started on a stool softener yesterday. I will add one time suppository today. 9. Type 2 diabetes. Her hemoglobin A1c is 8.5. The previous one 2 months ago was 6.7. Will continue with the same management for now. Today her blood sugar was elevated, likely secondary to steroids. 10. Deep vein thrombosis prophylaxis. This patient is on Brilinta. 11. Overall this patient is stable. Dr. Dunlap will talk to Dr. Covarrubias, who is her primary shipsmith. They will discuss the possibility of stopping the Brilinta to scope this patient or transfer this patient to another facility to do the upper and lower endoscopy. Tomorrow Dr. Dunlap will let us know about his plan. Dr. Santoyo will be notified. cc: Fabrizio Eckert MD
[2016-09-30] MEDS ORDERED: VENOFER 200 MG in NS 150 ML IV ONE (12:00)
[2016-09-30] MEDS: NORCO-5 PO PRN (12:37)
[2016-09-30] MEDS: VENOFER 200 MG in NS 150 ML IV SCH (12:43)
[2016-09-30] MEDS: PROTONIX PO SCH (23:12)
[2016-10-01] MEDS: NORCO-5 PO PRN ×2 (02:23→10:27)
[2016-10-01 06:15] LABS: MANUAL DIFF NEEDED? NO
[2016-10-01 06:17] LABS: BASO% 0.4 % (0.0-0.8); EOS# 0.14 X1000 (0.0-0.7); EOS% 1.4 % (0.0-10.0); HEMATOCRIT 27.8 % (37.0-47.0); HEMOGLOBIN 8.5 g/dL (12.0-16.0); IMM GRAN# 0.04 X1000 (0.0-0.04); IMM GRAN% 0.4 % (0.0-0.5); LYMPH# 1.94 X1000 (1.2-3.4); LYMPH% 20.1 % (20.5-51.1); MCH 23.4 PG (27-31); MCHC 30.6 g/dL (33-37); MCV 76.6 FL (81-99); MONO# 0.36 X1000 (0.11-0.59); MONO% 3.7 % (1.7-9.3); MPV 9.8 FL (7.4-10.4); PLT 255 X1000 (130-400); RBC 3.63 XMIL (4.2-5.4)
[2016-10-01 06:41] LABS: AGAP 13; BUN 19 mg/dL (8-22); CALCIUM 8.8 mg/dL (8.8-10.2); CHLORIDE 105 mmol/L (98-107); COSMO 289; POTASSIUM 4.3 mmol/L (3.5-5.1); SODIUM 142 mmol/L (136-145); TCO2 24 mmol/L (25-35)
[2016-10-01] MEDS: HUMALOG SUBQ SCH ×2 (08:01→11:19)
[2016-10-01] MEDS: PERICOLACE PO SCH ×2 (08:03→22:32)
[2016-10-01] MEDS: FERROUS SULFATE PO SCH ×2 (08:03→22:32)
[2016-10-01] MEDS: NORVASC PO SCH ×2 (08:03→22:32)
[2016-10-01] MEDS: SOLU-MEDROL IV SCH (08:03)
[2016-10-01] MEDS: PRINIVIL PO SCH (08:03)
[2016-10-01] MEDS: BRILINTA PO SCH ×2 (08:03→23:39)
[2016-10-01] MEDS ORDERED: VENOFER 200 MG in NS 150 ML IV ONE (09:00)
[2016-10-01] MEDS ORDERED: VENOFER IV ONE (09:00)
[2016-10-01] MEDS ORDERED: LANTUS SUBQ ONE (13:36)
[2016-10-01] MEDS ORDERED: GOLYTELY PO ONE (14:00)
[2016-10-01] MEDS ORDERED: INSULIN PEN NEEDLES ONE (14:47)
[2016-10-01] MEDS: HUMULIN R SUBQ SCH ×2 (16:20→23:39)
--- NOTE | 2016-10-01 16:34 | PROGRESS NOTE ---
DATE: 10/01/2016 SUBJECTIVE: The patient complains of pain in her feet from gout. She states that she is having regular bowel movements but denies having any blood in her stools. OBJECTIVE: Vital Signs: Temperature 98.6 degrees, blood pressure 120/44, heart rate 60, respirations 18, O2 saturation is 97% on room air. General: This is a morbidly obese female, lying in bed, in no acute distress. Head: Normocephalic, atraumatic. Heart : S1, S2. Normal. Regular rate and rhythm. Lungs: Clear to auscultation bilaterally. No wheezes. No rales. No rhonchi. Abdomen: Positive bowel sounds. Soft, nontender, nondistended. Extremities: No edema. No cyanosis. No calf tenderness. Neurologic: The patient is alert and oriented x3. LABS: White blood cell count 9.6, hemoglobin 8.5, hematocrit 27, platelets 255, 000. Sodium 142, potassium 4.3, chloride 105, CO2 24, BUN 19, creatinine 0.8, glucose 155, calcium 8.8. ASSESSMENT AND PLAN: 1. Suspected gastrointestinal bleed. The patient is scheduled to undergo endoscopy tomorrow. Management as per the leather crafter. 2. Stable angina with multivessel coronary artery disease status post cardiac stents. Cardiology is following. The patient is on Brilinta. Further recommendations to follow from the computer technical specialist. 3. Gout flare. Continue on IV Solu-Medrol daily. 4. Morbid obesity. Aware. 5. Uncontrolled insulin-dependent diabetes mellitus type 2. We will adjust the patient's Lantus dosage. 6. Hypertension. Controlled. 7. Iron-deficiency anemia. The patient has been started on Venofer today by the computer technical specialist. Will continue to monitor the hemoglobin and hematocrit closely and transfuse p.r.n. 8. Diabetic neuropathy. Continue on Neurontin. cc: Rubia Khan MD MTDD
[2016-10-01] MEDS: PROTONIX PO SCH (22:32)
[2016-10-01] MEDS: NEURONTIN PO SCH (22:32)
[2016-10-01] MEDS ORDERED: LOVENOX 1 MG/KG SUBQ SCH (22:45)
[2016-10-02] MEDS: NORCO-10 PO PRN ×2 (00:37→14:49)
[2016-10-02] MEDS: HUMULIN R SUBQ SCH ×4 (06:03→20:06)
[2016-10-02 06:42] LABS: HEMATOCRIT 27.3 % (37.0-47.0); HEMOGLOBIN 8.4 g/dL (12.0-16.0); MCH 23.7 PG (27-31); MCHC 30.8 g/dL (33-37); MCV 77.1 FL (81-99); MPV 9.4 FL (7.4-10.4); RBC 3.54 XMIL (4.2-5.4)
[2016-10-02 07:01] LABS: AGAP 12; BUN 11 mg/dL (8-22); CALCIUM 8.9 mg/dL (8.8-10.2); CHLORIDE 105 mmol/L (98-107); COSMO 286; MAGNESIUM 2.1 mg/dL (1.5-2.7); POTASSIUM 3.6 mmol/L (3.5-5.1); SODIUM 143 mmol/L (136-145); TCO2 26 mmol/L (25-35)
--- NOTE | 2016-10-02 08:09 | PROGRESS NOTE ---
DATE: 10/02/2016 CHIEF COMPLAINT: Weakness, chest pain. SUBJECTIVE: Mrs. Monge has continued to receive iron infusions. She also got a blood transfusion over the weekend. She is not having any more chest pains. She feels that when she gets up to go to the bathroom or walking down the [place]en she gets out of breath. OBJECTIVE: Vital signs: Her blood pressure now is 163/90, temperature is 98.1, pulse 71, respirations 18. General: She is alert and oriented. She is not in any distress, HEENT: Unremarkable. Chest: Clear to auscultation and percussion. Cardiac: Heart sounds are regular and rhythmic. I do not hear a gallop or murmur. Abdomen: Nontender. Extremities: No edema. Neurological: Moves four extremities, follows commands. IMPRESSION: 1. Patient who presented with initial complaints of abdominal and chest discomfort as well as fatigue, tiredness. She was found to be anemic. She has iron-deficiency anemia from chronic GI blood loss. 2. Angina pectoris, functional class II to III. 3. Severe coronary heart disease, multiple coronary interventions to distal right coronary artery, proximal right coronary artery, proximal circumflex with progressive lesion in mid circumflex and ostial LAD lesion. 4. History of hypertension. RECOMMENDATION: From cardiology, I would suggest to consider referring this patient to the [facility] for the aforementioned endoscopic procedure. I am really concerned that her coronary lesions have progressed based on what I noted on the last arteriogram from June of 2016. The circumflex lesion is potentially significant. If we stop the antiplatelet regimen, we could run into the possibility of the patient becoming unstable and developing acute coronary syndrome, which certainly may have serious consequences. At this point in time, I have contacted her substitute bus driver in [place], Dr. Blaine Covarrubias, who is going to review the angiograms, and he will furnish some advice. The patient should probably be transferred to the GI service in [place], get a consultation with Cardiology, and then proceed with endoscopy if they feel that it is appropriate , which in my opinion, it is. cc: Horacio Dunlap MD [facility]ITAL[facility]lement[facility]
[2016-10-02] MEDS: FERROUS SULFATE PO SCH ×2 (09:16→20:08)
[2016-10-02] MEDS: PERICOLACE PO SCH ×2 (09:16→20:09)
[2016-10-02] MEDS: NORVASC PO SCH ×2 (09:16→23:53)
[2016-10-02] MEDS: PRINIVIL PO SCH (09:16)
[2016-10-02] MEDS: SOLU-MEDROL IV SCH (09:17)
[2016-10-02] MEDS: LANTUS SUBQ SCH ×2 (09:20→20:08)
[2016-10-02] MEDS: SPIRIVA INH SCH (09:40)
[2016-10-02] MEDS: BRILINTA PO SCH ×2 (10:00→20:08)
[2016-10-02] MEDS ORDERED: VENOFER 200 MG in NS 150 ML IV ONE (10:40)
--- NOTE | 2016-10-02 16:11 | PROGRESS NOTE ---
DATE: 10/02/2016 SUBJECTIVE: The patient is resting comfortably in bed. She has no complaints. She denies having any nausea, vomiting or abdominal pain. The patient said that her bowel movements have been brown and denies any blood in them. OBJECTIVE: Vital Signs: Temperature 98.4 degrees, blood pressure 150/68, heart rate 68, respirations 18, O2 saturations 98% on room air. General: This is an elderly female, lying in bed, in no acute distress. Head: Normocephalic, atraumatic. Heart: S1, S2. Normal. Regular rate and rhythm. Lungs: Clear to auscultation bilaterally. Abdomen: Positive bowel sounds. Soft, nontender, nondistended. Extremities: No edema. No cyanosis. No calf tenderness. Neurologic: The patient is alert and oriented x3. LABS: White blood cell count 8.7, hemoglobin 8.4, hematocrit 27, platelets 258,000, MCV 77. Sodium 143, potassium 3.6, chloride 105, CO2 26, BUN 11, creatinine 0.6, glucose 127, phosphorus 2.2, magnesium 2.1. ASSESSMENT AND PLAN: 1. Suspected GI bleed. I called and spoke with the assistant store manager operations Director Data Management at [facility] who stated that since the patient is not having overt GI bleeding that she would recommend that we supplement the patient's iron and hold off on endoscopy at this time given the patient's extensive cardiac history. She stated that if the patient started to develop overt GI bleeding that then endoscopy would be warranted at this time. 2. Stable angina with multi-vessel coronary artery disease status post cardiac stents. Continue on the current cardiac medications. 3. Gout flare. Improved. 4. Morbid obesity. Aware. 5. Uncontrolled insulin-dependent diabetes mellitus type 2. Continue on Lantus twice a day plus sliding scale insulin coverage. 6. Hypertension. Controlled. 7. Iron-deficiency anemia. Will give the patient another dose of Venofer iron today and again tomorrow and continue to monitor the hemoglobin and hematocrit closely. 8. Diabetic neuropathy. Continue on Neurontin. 9. Disposition. We will plan to discharge the patient once her hemoglobin and hematocrit is stable. The patient will likely need to follow up with Dr. Blaine Covarrubias in [place] for spa host to discuss further treatment. cc: Rubia Khan MD
[2016-10-02] MEDS: PROTONIX PO SCH ×2 (20:08→23:54)
[2016-10-02] MEDS: NEURONTIN PO SCH ×2 (20:09→23:53)
[2016-10-03] MEDS: NORCO-10 PO PRN (00:12)
--- NOTE | 2016-10-03 00:54 | PROGRESS NOTE ---
DATE: 10/01/2016 SUBJECTIVE: The patient states that she has had no further bleeding episodes. She is feeling well, even though her hemoglobin was slightly decreased. She received a blood transfusion, which she tolerated well. The patient is currently scheduled to undergo an EGD and colonoscopy in the morning for further evaluation of continued anemia. However, after a lengthy discussion with Dr. Dunlap, he feels the patient is too high risk to have the procedure done at [facility]. Specifically, the concern is that if she has an acute coronary event, we are unable to effectively manage acute coronary syndrome. Therefore, he is recommended that we cancel the procedure and have the procedure performed at [facility], where there are cardiothoracic surgeons and cardiology backup in the event that she has an acute coronary syndrome. Therefore, I will cancel her procedure. She should remain on the Brilinta until such time that plans for her endoscopic evaluation can be coordinated. Ideally, it would be important to wait until she celebrates her 1 year anniversary post stent if at all possible. I will defer to Cardiology with regard to the timing of her endoscopy, in light of her significant coronary artery disease. cc: MD Rubia Munoz MD Luis N. Villanueva, MD
[2016-10-03] MEDS: HUMULIN R SUBQ SCH ×2 (06:01→12:05)
[2016-10-03 06:21] LABS: HEMATOCRIT 30.2 % (37.0-47.0); HEMOGLOBIN 9.3 g/dL (12.0-16.0); MCH 23.8 PG (27-31); MCHC 30.8 g/dL (33-37); MCV 77.2 FL (81-99); MPV 9.5 FL (7.4-10.4); RBC 3.91 XMIL (4.2-5.4)
[2016-10-03 07:35] VITALS: BP 164/67
[2016-10-03 07:38] LABS: AGAP 13; BUN 7 mg/dL (8-22); CALCIUM 9.6 mg/dL (8.8-10.2); CHLORIDE 103 mmol/L (98-107); COSMO 283; POTASSIUM 3.4 mmol/L (3.5-5.1); SODIUM 143 mmol/L (136-145); TCO2 27 mmol/L (25-35)
[2016-10-03] MEDS: PERICOLACE PO SCH (08:34)
[2016-10-03] MEDS: PRINIVIL PO SCH (08:34)
[2016-10-03] MEDS: SOLU-MEDROL IV SCH (08:35)
[2016-10-03] MEDS: NORVASC PO SCH (08:35)
[2016-10-03] MEDS: BRILINTA PO SCH (08:35)
[2016-10-03] MEDS: LANTUS SUBQ SCH (08:47)
[2016-10-03] MEDS ORDERED: VENOFER 200 MG in NS 150 ML IV SCH (09:00)
[2016-10-03] MEDS ORDERED: ICAR-C PO SCH (09:00)
[2016-10-03] MEDS: SPIRIVA INH SCH (10:28)
[2016-10-03] MEDS ORDERED: KLOR-CON PO ONE (10:45)
--- NOTE | 2016-10-06 16:46 | DISCHARGE SUMMARY ---
ADMISSION DATE: 09/22/2016 DISCHARGE DATE: 10/03/2016 The patient's supervisor epoxy fabrication is Dr. Blaine Covarrubias. FINAL DISCHARGE DIAGNOSES: 1. Suspected gastrointestinal bleed. 2. Stable angina with multi-vessel coronary artery disease status post cardiac stents. 3. Gout flare. 4. Morbid obesity. 5. Uncontrolled insulin-dependent diabetes mellitus type 2. 6. Hypertension. 7. Iron-deficiency anemia. 8. Diabetic neuropathy. CONSULTATIONS REQUESTED DURING THIS HOSPITAL STAY: 1. GI consultation with Dr. Santoyo. 2. Cardiology consultation with Dr. Dunlap. HOSPITAL COURSE: Ms. Monge is a 65-year-old female with an extensive cardiac history who initially presented to the ER with a chief complaint of abdominal pain as well as nausea and vomiting. On admission, the patient was noted to have a hemoglobin of 7.8 with a hematocrit of 26 and an MCV of 71. Stool for occult blood was also performed which was noted to be positive. The patient was admitted on the hospitalist service and GI was consulted as well as Cardiology given the patient's extensive cardiac history. The patient was also noted to be in acute renal failure and started on IV fluids. With the initiation of IV fluids the patient's renal function eventually improved. The following day, the patient was noted to have a hemoglobin of 7.5 and hematocrit of 25. The patient then received 2 units of packed red blood cells. The patient was assessed by the supervisor epoxy fabrication and the patient primary supervisor epoxy fabrication at [facility] was contacted and informed about the patient's condition. It was determined that the patient was too high risk for endoscopic evaluation due to her extensive cardiac history. The case was discussed with the preparation department supervisor genetics nurse at [facility] who stated that endoscopy could be done only if the patient was having overt GI bleeding. The patient received iron infusions daily and her hemoglobint improved to 9.3. The patient had no overt bleeding during her hospitalization. The patient was ultimately cleared for discharge home on October 03, 2016. She was advised to follow up with Dr. Blaine Covarrubias within 2 to 3 days. Discharge Diet: Diabetic diet Discharge medications: All medications remained the same. Icar C 1 tab oral BID was added. Discharge Instructions: Follow up with Dr.Ross Covarrubias in 2 to 3 days. cc: Rubia Khan MD [facility]
== END 2016-10-03 13:59 | disposition home or self-care (01) ==
LOC: ED 15:29 → SUATTDRO 19:20 → 4N 19:20
PROVIDERS: ATTEND Internal Medicine

== ENCOUNTER 2018-05-06 22:50 | Inpatient (IN) ==
[2018-05-06] MEDS ORDERED: SOLU-MEDROL IV ONE (23:02)
[2018-05-06] MEDS ORDERED: DUONEB (A & A) INH ONE (23:03)
[2018-05-06 23:20] LABS: ALLEN TEST YES; BE 1.7 mmoll (-3.0-3.0); BLOOD TYPE ARTERIAL; HCO3-(ACT) 26.2 mmoll (20.0-26.0); MODALITY CANNULA; O2(CT) 15.2 mL/dL (15.0-23.0); O2HB 93.1 % (95.0-99.0); PCO2(98.6) 42 mmHg (35-45); PO2(98.6) 69 mmHg (60-100); SAMPLE BLOOD; SAO2 96.2 % (95.0-100.0); THB 11.6 g/dL (11.5-17.4); pH(98.6) 7.41 (7.35-7.45)
[2018-05-06 23:39] LABS: BASO# 0.01 X1000 (0.0-0.2); BASO% 0.1 % (0.0-0.8); EOS% 2.7 % (0.0-10.0); HEMATOCRIT 39.4 % (37.0-47.0); HEMOGLOBIN 12.1 g/dL (12.0-16.0); IMM GRAN# 0.03 X1000 (0.0-0.04); IMM GRAN% 0.4 % (0.0-0.5); LYMPH# 1.14 X1000 (1.2-3.4); LYMPH% 15.2 % (20.5-51.1); MCH 24.5 PG (27-31); MCHC 30.7 g/dL (33-37); MCV 79.9 FL (81-99); MONO# 0.24 X1000 (0.11-0.59); MONO% 3.2 % (1.7-9.3); MPV 11.7 FL (7.4-10.4); NEUT# 5.88 X1000 (1.4-6.5); NEUT% 78.4 % (42.2-75.2); PLT 195 X1000 (130-400); RBC 4.93 XMIL (4.2-5.4); RDW 16.9 % (11.5-14.5)
[2018-05-06 23:43] LABS: INR 0.89; PROTIME 12.8 Seconds (11.0-16.0)
[2018-05-06 23:44] LABS: PTT 25.4 Seconds (22.3-41.8)
[2018-05-06 23:49] LABS: AGAP 16; ALB/GLOB RATIO 1.5; ALBUMIN 4.1 g/dL (3.5-5.0); ALKALINE PHOSPHATASE 133 U/L (32-104); BUN 9 mg/dL (8-22); CALCIUM 8.9 mg/dL (8.8-10.2); CHLORIDE 98 mmol/L (98-107); COSMO 294; CREATININE 0.7 mg/dL (0.5-0.9); ESTIMATED GFR > 60; GLUCOSE 376 mg/dL (70-104); GOT 24 U/L (10-30); GPT 17 U/L (10-36); POTASSIUM 3.9 mmol/L (3.5-5.1); SODIUM 140 mmol/L (136-145); TCO2 26 mmol/L (25-35); TOTAL BILIRUBIN 0.61 mg/dL (0.20-1.00); TOTAL PROTEIN 6.9 g/dL (6.3-8.3)
[2018-05-06 23:50] LABS: CK PROFILE 287 U/L (24-173)
[2018-05-07 00:11] LABS: CK INDEX 2.2 (0.0-2.5); CK-MB 6.34 ng/mL (0.0-5.0)
[2018-05-07] MEDS ORDERED: LASIX IV ONE (00:38)
[2018-05-07] MEDS ORDERED: NEURONTIN PO ONE (00:38)
--- NOTE | 2018-05-07 00:59 | PROVIDER DOCUMENTATION ---
This chart was entered by Tracie Abdullahi Scribe, acting as scribe for Valarie Burks MD. HPI-Respiratory General - General Chief Complaint: Shortness of Breath Stated Complaint: sob Time Seen by Provider: 05/06/18 23:00 Source: patient, EMS Allergies/Adverse Reactions: Patient Allergies Allergy/AdvReac Type Severity Reaction Status Date / Time No Known Allergies Allergy Verified 12/21/17 01:17 Home Medications: Home Medication List Medication Instructions Recorded Confirmed Last Taken Type Aspirin [Aspir-Low] 81 mg PO DAILY 04/16/16 12/21/17 12/20/17 History Nitroglycerin 0.4 mg SL DIRECTED PRN #15 06/22/16 12/21/17 07/26/16 Rx tab.subl Fluticasone/Salmet 250/50 INH 1 puff INH RTBID #1 inhaler 08/02/16 12/21/17 Rx [Advair 250/50 Diskus] Gabapentin 600 mg PO QHS 09/22/16 12/21/17 12/20/17 History Allopurinol 100 mg PO BID 12/08/17 12/21/17 12/20/17 History Atorvastatin Calcium 80 mg PO HS 12/08/17 12/21/17 12/20/17 History Carvedilol 12.5 mg PO BID 12/08/17 12/21/17 12/20/17 History Loratadine 10 mg PO DAILY 12/08/17 12/21/17 12/20/17 History Docusate Sodium [Colace] 100 mg PO BID 12/21/17 12/21/17 12/20/17 History LISINOpril [Prinivil] 20 mg PO DAILY 12/21/17 12/21/17 12/20/17 History Insulin Glargine [Lantus] 25 units SQ QPM #2 insuln.pen 12/22/17 12/21/17 Rx Insulin Glargine [Lantus] 45 units SQ QAM #2 insuln.pen 12/22/17 12/21/17 Rx Ofloxacin Otic [Floxin Otic] 5 drp OTIC BID 7 Days #1 bottle 12/22/17 Unknown Rx - History of Present Illness-Resp Quality of Pain: reports: tightness Severity in ED: reports: mild Onset/Duration: reports: 4 days ago Timing: reports: getting worse Context: reports: other (fam smokes around her) Exposure: reports: smoke exposure Cough Quality/Degree: reports: productive cough Episode Frequency: occasional episodes Current Respiratory Medication Therapy: Initiated albuterol/atrovent inhale Modifying Factors: improves with: exertion Associated Symptoms: reports: chest pain/soreness, cough, hurts to breathe Similar Symptoms Previously?: Yes Recently seen or treated by another doctor?: No Review of Systems - Adult - REVIEW OF SYSTEMS - ADULT Constitutional: reports: no symptoms reported Eyes: reports: no symptoms reported Ears, Nose, Mouth & Throat: reports: no symptoms reported Cardiovascular: reports: chest pain. denies: edema, orthopnea, palpitations Respiratory: reports: see HPI, cough, dyspnea on exertion, pleurisy, shortness of breath. denies: excessive sputum production, hemoptysis, wheezing Gastrointestinal: reports: no symptoms reported Genitourinary: reports: no symptoms reported Musculoskeletal: reports: no symptoms reported Integumentary: reports: no symptoms reported Neurological: reports: no symptoms reported Psychiatric: reports: no symptoms reported Endocrine: reports: no symptoms reported Hematologic/Lymphatic: reports: no symptoms reported Allergic/Immunologic: reports: no symptoms reported All Other Systems: Reviewed and Negative Past History - Adult - PAST MEDICAL HISTORY-ADULT Review of Records: reports: Nursing Assessment Review Major Childhood Illnesses: reports: denies history Cardiovascular: reports: CHF, HTN, hyperlipidemia, AR Respiratory: reports: asthma, COPD Gastrointestinal: reports: GERD Obstetrical/Gynecological: reports: denies history Genitourinary: reports: denies history Musculoskeletal: reports: denies history Neurological: reports: CVA Endocrine/Immune: reports: Diabetes, Sickle Cell disease, thyroid disorder Other Conditions: reports: denies history - PRIOR SURGERIES/PROCEDURES Surgical/Procedure History: reports: appendectomy, cholecystectomy, BTL, C- section - IMMUNIZATION STATUS Childhood Immunizations: See Nurse Assessment Flu Vaccine: See Nurse Assessment - FAMILY HISTORY Family History: reviewed, not pertinent - SOCIAL HISTORY Smoking: other (former) Physical Exam-General - PHYSICAL EXAM-ADULT Initial Vital Signs Reviewed: Yes - CONSTITUTIONAL General Appearance: alert, mild distress, other (3 lpm nc) - EYES Eyes: PERRL/EOMI, pink conjunctivae - HEAD, EARS, NOSE, MOUTH & THROAT HENMT: moist mucous membranes - NECK Neck: non-tender, full range of motion - RESPIRATORY Respiratory: respiratory distress, decreased breath sounds, pain on inspiration - CARDIOVASCULAR Cardiovascular: tachycardia - CHEST (BREASTS) Chest/Breast: other (healed surgical scar left chest) - GASTROINTESTINAL (ABDOMEN) Abdominal Exam: normal bowel sounds, non tender, soft, other (obese) - LYMPHATIC Lymphatic: no adenopathy - MUSCULOSKELETAL Back Exam: normal inspection, no CVA tenderness, no vertebral tenderness Extremity: normal range of motion, non-tender - SKIN Integumentary: normal color, normal turgor, warm/dry - NEUROLOGIC Neurologic: grossly normal, no motor/sensory deficits - PSYCHIATRIC Psych/Mental Status: normal mood/affect, normal thought content, normal thought process, oriented x 3 Progress - PLAN OF CARE/RESULTS Progress/Plan/Lab Results: Vital Signs - 8 hr 05/06/18 22:50 05/06/18 23:02 05/06/18 23:04 Temperature 98.4 F Pulse Rate 102 H 107 H Respiratory Rate 23 38 H Blood Pressure 197/93 197/93 O2 Sat by Pulse Oximetry 92 L 90 L 92 L 05/06/18 23:05 05/06/18 23:10 05/06/18 23:20 Temperature Pulse Rate 88 102 H 99 H Respiratory Rate 16 27 H 23 Blood Pressure O2 Sat by Pulse Oximetry 94 L 98 05/06/18 23:40 05/06/18 23:50 05/07/18 00:00 Temperature Pulse Rate 99 H 98 H 100 H Respiratory Rate 27 H 26 H 34 H Blood Pressure O2 Sat by Pulse Oximetry 94 L 97 95 Laboratory Results - last 24 hr 05/06/18 05/06/18 05/06/18 23:01 23:04 23:04 WBC 7.50 RBC 4.93 Hgb 12.1 Hct 39.4 MCV 79.9 L MCH 24.5 L MCHC 30.7 L RDW Std Deviation 16.9 H Plt Count 195 MPV 11.7 H Immature Gran % (Auto) 0.4 Neut % (Auto) 78.4 H Lymph % (Auto) 15.2 L Reeves % (Auto) 3.2 Eos % (Auto) 2.7 Baso % (Auto) 0.1 Immature Gran # (Auto) 0.03 Neut # (Auto) 5.88 Lymph # (Auto) 1.14 L Reeves # (Auto) 0.24 Eos # (Auto) 0.20 Baso # (Auto) 0.01 PT INR PTT (Actin FS) Specimen Type ARTERIAL Sample Site R RADIAL pH 7.41 pCO2 42 pO2 69 HCO3 26.2 H Base Excess 1.7 Oxyhemoglobin 93.1 L ABG O2 Sat (Calculated) 15.2 ABG O2 Saturation 96.2 ABG Carboxyhemoglobin 2.10 ABG Methemoglobin 1.0 Lamonte Test YES A-a O2 Difference 92.0 Total Hemoglobin 11.6 Lactate 1.70 Liter Flow 2.5 Blood Gas Modality CANNULA FiO2 % 30.0 Sodium 140 Potassium 3.9 Chloride 98 Carbon Dioxide 26 Anion Gap 16 BUN 9 Creatinine 0.7 Estimated GFR/1.73 m2 > 60 BUN/Creatinine Ratio 13 Glucose 376 H Calculated Osmolality 294 Calcium 8.9 Total Bilirubin 0.61 AST 24 ALT 17 Alkaline Phosphatase 133 H Creatine Kinase 287 H Creatine Kinase Index 2.2 CK-MB (CK-2) 6.34 H Troponin T [id number] Pept Total Protein 6.9 Albumin 4.1 Globulin 2.8 Albumin/Globulin Ratio 1.5 05/06/18 05/06/18 05/06/18 23:04 23:04 23:04 WBC RBC Hgb Hct MCV MCH MCHC RDW Std Deviation Plt Count MPV Immature Gran % (Auto) Neut % (Auto) Lymph % (Auto) Reeves % (Auto) Eos % (Auto) Baso % (Auto) Immature Gran # (Auto) Neut # (Auto) Lymph # (Auto) Reeves # (Auto) Eos # (Auto) Baso # (Auto) PT 12.8 INR 0.89 PTT (Actin FS) 25.4 Specimen Type Sample Site pH pCO2 pO2 HCO3 Base Excess Oxyhemoglobin ABG O2 Sat (Calculated) ABG O2 Saturation ABG Carboxyhemoglobin ABG Methemoglobin Lamonte Test A-a O2 Difference Total Hemoglobin Lactate Liter Flow Blood Gas Modality FiO2 % Sodium Potassium Chloride Carbon Dioxide Anion Gap BUN Creatinine Estimated GFR/1.73 m2 BUN/Creatinine Ratio Glucose Calculated Osmolality Calcium Total Bilirubin AST ALT Alkaline Phosphatase Creatine Kinase Creatine Kinase Index CK-MB (CK-2) Troponin T < 0.010 Idb-V-Caiswgcravp Pept 1604 H Total Protein Albumin Globulin Albumin/Globulin Ratio Orders Category Date Time Status Cardiac Monitoring DIRECTED Care 05/06/18 23:01 Active Oxygen Therapy- ED Nursing DIRECTED Care 05/06/18 23:01 Active Saline Loc NOW Care 05/06/18 23:01 Active CHEST-2 VIEWS [RAD] Stat Exams 05/06/18 23:01 Taken ABG [RESP] Routine Lab 05/06/18 23:01 Completed CBC WITH ELECTRONIC DIFF [HEME] Stat Lab 05/06/18 23:04 Completed CK PROFILE [SP CHEM] Stat Lab 05/06/18 23:04 Completed COMPREHENSIVE METABOLIC PANEL [CHEM] Stat Lab 05/06/18 23:04 Completed PRO B-NATRIURETIC PEPTIDE Stat Lab 05/06/18 23:04 Completed PROTIME WITH INR [COAG] Stat Lab 05/06/18 23:04 Completed PTT [COAG] Stat Lab 05/06/18 23:04 Completed TROPONIN T Stat Lab 05/06/18 23:04 Completed Albuterol 2.5MG/Ipratrop 0.5MG [Duoneb (A & A)] Med 05/06/18 23:03 Discontinued 3 ml INH NOW ONE Furosemide [Lasix] Med 05/07/18 00:38 Discontinued 20 mg IV NOW ONE Gabapentin [Neurontin] Med 05/07/18 00:38 Discontinued 600 mg PO NOW ONE Methylprednisolone Sod Succ [Solu-Medrol] Med 05/06/18 23:02 Discontinued 80 mg IV NOW ONE Aerosol Treatments Routine Oth 05/06/18 23:03 Completed Aerosol Treatments Stat Oth 05/06/18 23:03 Completed CP/SOB/Palp >45 yrs of Age Stat Oth 05/06/18 23:01 Ordered EKG [EKG] Stat Ther 05/06/18 23:01 Ordered Result Diagrams: 05/06/18 23:04 05/06/18 23:04 - REASSESSMENT Reassessment #1 Time Reassessed: 00:58 (s/p breathing treatment, not helping. still feeling sob. labs shows CHF exac. ) Status: unchanged - EKG 1 Time of EKG reading by physician:: 23:00 EKG Read and Signed by:: Chip Nichols EKG Interpretation (*Must complete 3 of following elements*): Abnormal Rate: 102 Rhythm: sin tachy poss left atrial eng. - XRAY 1 XRAY: Bilateral XRAY Study: Chest Impression: Abnormal (left sided pna- Dr. Burks) - CONSULTS/PCP/HOSPITALIST Notification #1 *Consult/PCP/Hospitalist*: Dr. Riley Time Discussed: 00:54 Consult Disposition: Admit Departure - Departure Date of Disposition Decision: 05/06/18 Time of Disposition Decision: 23:44 DIAGNOSIS: SOB (shortness of breath), CHF (congestive heart failure) Disposition: ADMITTED INPATIENT 09 Certified Medical Emergency: Emergent Condition: Stable - Critical Care Note This patient required my direct & personal management of CC.: No Attestation - Physician/ NILTON Attestation Patient care was provided by Advanced Practice Provider:: No The physician spent face to face time with patient:: Yes Advanced Practice Provider documentation review:: Supervising physician onsite and consulted in the evaluation and care of this patient. The physician did have a face to face encounter with the patient. This chart was documented by the indicated scribe, (Tracie Abdullahi, Nicole) and accurately reflects the services I performed and decisions made by me, Valarie Burks MD, as attested by the provider's signature.
[2018-05-07] MEDS ORDERED: ZOFRAN IV PRN (01:16)
[2018-05-07] MEDS ORDERED: NITROGLYCERIN SL PRN (01:20)
[2018-05-07] MEDS ORDERED: LABETALOL IV PRN ×2 (01:22→09:43)
[2018-05-07] MEDS: LOVENOX SUBQ SCH (01:30)
[2018-05-07] MEDS ORDERED: LASIX IV SCH (01:30)
[2018-05-07 02:35] LABS: URINE SOURCE CATH
[2018-05-07 02:38] LABS: BILIRUBIN URINE NEGATIVE (NEGATIVE); BLOOD URINE TRACE (NEGATIVE); COLOR STRAW; GLUCOSE URINE 500 mg/dL (NEGATIVE); KETONE URINE NEGATIVE (NEGATIVE); LEUKOCYTES URINE SMALL (NEGATIVE); NITRITE URINE POSITIVE (NEGATIVE); PH URINE 6.5; PROTEIN URINE 50 mg/dL (NEGATIVE); SP GRAVITY URINE < 1.001; TURBIDITY URINE CLEAR (CLEAR); UROBILINOGEN URINE NORMAL (NORMAL)
[2018-05-07 02:40] LABS: UR EPITHELIAL CELLS <10 /HPF (<10); URINE BACTERIA 4+ /HPF; URINE RBC <10 /HPF (<10)
--- NOTE | 2018-05-07 03:20 | HISTORY AND PHYSICAL ---
PRIMARY CARE PHYSICIAN: Dr. Aamir Amaya. CRUISE DIRECTOR: Dr. Santillan in [place]. PRESENTING COMPLAINT: Shortness of breath and chest pain on and off for one week. HISTORY OF PRESENTING COMPLAINT: Ms. Monge is a 67-year-old, female with an extensive past medical history including COPD, congestive heart failure, sick sinus syndrome, status post pacemaker, coronary artery disease, status post stents, pulmonary hypertension. Came to the emergency department yesterday because of ongoing shortness of breath. According to Ms. Monge, she has been extremely winded, especially on exertion, which has been getting worse every single day for the past couple weeks. According to her, this is also associated with orthopnea and PND. Ms. Monge also refers that sometimes associated with shortness of breath, she has on and off chest pain that gets better with nitroglycerin. Yesterday, she became so symptomatic that she could not take it any longer. She came to the emergency department where she was evaluated and we were consulted for admission. Upon presentation, her blood pressure was 197/93, pulse was 103, respirations were 23, temperature was 98.4 degrees. PAST MEDICAL HISTORY: 1. Coronary artery disease, status post stents. 2. Congestive heart failure with preserved ejection fraction. 3. COPD. 4. Diabetes mellitus. 5. Status post pacemaker for sick sinus syndrome. PAST SURGICAL HISTORY: 1. Two coronary stents. 2. Cholecystectomy. 3. Appendectomy. 4. Thyroidectomy. 5. Right lower extremity orthopedic intervention. ALLERGIES: None. CURRENT MEDICATIONS: 1. Aspirin 81 mg daily. 2. Nitroglycerin 0.4 p.r.n. 3. Advair inhaler. 4. Gabapentin 600 at bedtime. 5. Atorvastatin 80 mg p.o. at bedtime. 6. Carvedilol 12.5 b.i.d. 7. Lisinopril 20 mg daily. 8. Insulin glargine 45 units. 9. Metformin 500 b.i.d. FAMILY HISTORY: Noncontributory. SOCIAL HISTORY: Ms. Monge currently lives with her daughter. She says she is looking into moving out on her own. She denies any alcohol or drug use. She is a former smoker. REVIEW OF SYSTEMS: Fourteen point review of systems was conducted with Ms. Monge and is unremarkable except what we have in the HPI. Specifically, she denies any abdominal pain. She denies any vomiting. No syncope. No fever. PHYSICAL EXAMINATION: VITAL SIGNS: Currently, her blood pressure is 197/93, pulse is 99, respirations are 23, temperature is 98.4 degrees. GENERAL EXAMINATION: Ms. Monge is a 67-year-old, female. She is in bed. She seems to be in mild respiratory distress. HEENT: Mucosa is pink and moist. Anicteric. Acyanotic. NECK: Neck is supple. There is positive JVD. No carotid bruit. RESPIRATORY SYSTEM: Air entry is bilaterally reduced. There are end inspiratory wet crackles in both lungs. There was no wheezing, no rhonchi. There was no accessory muscle use either. CARDIOVASCULAR: Regular rate and rhythm. No murmurs, no rubs, no gallops. GI: Abdomen is soft. There is some tenderness to the right upper quadrant. There is also positive hepatojugular reflux. No splenomegaly. Bowel sounds were present. There is an old infraumbilical surgical scar. EXTREMITIES: No pedal edema. Distal pulses present. ENDOSCOPY NURSE: Patient is awake, alert, and oriented. Executive function seems to be intact. Cranial nerves 2-12 have been grossly examined and are unremarkable. The patient is able to move all extremities. Power is 5/5. Sensation is intact. PSYCHIATRIC: Ms. Monge is cooperative, and has very good insight and judgment. MUSCULOSKELETAL: Positive for a pacemaker generator in the left anterior chest wall. LABORATORY DATA: WBC is 7.50, hemoglobin is 12.1, platelet count 195,000. Chemistry is also reviewed. Sodium is 140, potassium is 3.9, chloride is 98. ProBNP is 1604. Troponin, initial one has been unremarkable. EKG shows normal sinus rhythm. No acute abnormalities. A chest x-ray does show pulmonary vascular congestion, probably some fluid in the costophrenic angles, and borderline cardiomegaly. We are still awaiting the official report. ASSESSMENT: Ms. Monge, who is known to have a lot of comorbidities, came in with a history of shortness of breath. Blood pressure was extremely high. The patient is being admitted for further medical care. 1. Acute hypoxemic respiratory failure. The patient's saturation was in the 90s , had to be placed on oxygen therapy. We think it is secondary to pulmonary edema. 2. Pulmonary edema, likely secondary to congestive heart failure with preserved ejection fraction. We did review the patient's echocardiogram which was done in December 2017. Ejection fraction at that time was about 60%. 3. Severe uncontrolled hypertension. The patient is presumed to be in hypertensive urgency/emergency. We will restart her back on her blood pressure medication. We will also use labetalol as needed for adequate blood pressure control. We will continue titrating for adequate control. 4. Diabetes mellitus. We will continue with her home insulin regimen. PLAN: In general, we are going to admit Ms. Monge to the cardiac floor ([facility]), adequately diurese with IV Lasix, strict Is and Os, restart her on her home medications including carvedilol and lisinopril. We will use intermittently labetalol for adequate blood pressure control. Repeat her chest x-ray in the morning, as well as EKG. Trend her troponins to make sure she is not in any non-STEMI and re-evaluate her in the morning, and give further recommendations. Depending on her clinical course and her echocardiogram, we might consult other subspecialties like cardiology. cc: Rosas Riley MD [facility]
--- NOTE | 2018-05-07 07:03 | EKG Report ---
Test Performed on : 05/06/2018 11:00:45 PM Test Reason : sob Blood Pressure : / mmHG Vent. Rate : 102 BPM Atrial Rate : 102 BPM P-R Int : 176 ms QRS Dur : 098 ms QT Int : 360 ms P-R-T Axes : 070 026 093 degrees QTc Int : 469 ms Sinus tachycardia. Possible Left atrial enlargement Abnormal QRS-T angle, consider primary T wave abnormality Abnormal ECG When compared with ECG of 21-DEC-2017 01:07, premature ventricular complexes. are no longer present CO interval has decreased Nonspecific T wave abnormality no longer evident in Inferior leads Nonspecific T wave abnormality no longer evident in Anterior leads Unconfirmed Result
--- NOTE | 2018-05-07 07:07 | Diag Imaging Result Doc PS360 ---
EXAM: CHEST-2 VIEWS 05/06/2018 HISTORY: sob TECHNIQUE: PA and lateral chest COMMENT: There are small bilateral pleural effusions, interstitial and alveolar opacities in the lung bases and cardiomegaly. Compared to the previous study of 12/22/2017 this is slightly worse. IMPRESSION: Pulmonary edema and pleural effusions. Electronically signed by Colby Ortiz 05/07/2018 7:06 AM
--- NOTE | 2018-05-07 07:26 | EKG Report ---
Test Performed on : 05/07/2018 06:47:38 AM Test Reason : CHF Blood Pressure : / mmHG Vent. Rate : 092 BPM Atrial Rate : 092 BPM P-R Int : 196 ms QRS Dur : 098 ms QT Int : 382 ms P-R-T Axes : 071 022 114 degrees QTc Int : 472 ms Normal sinus rhythm. Abnormal QRS-T angle, consider primary T wave abnormality Abnormal ECG When compared with ECG of 06-MAY-2018 23:00, (Unconfirmed) No significant change was found Confirmed by Reilly FAROOQ, Jessee Bennett ([id number]) on 05/07/2018 1:40:09 PM
[2018-05-07] MEDS: PRILOSEC PO SCH (07:35)
[2018-05-07] MEDS: ADVAIR 250/50 DISKUS INH SCH ×2 (08:43→20:04)
[2018-05-07] MEDS: ZYLOPRIM PO SCH ×2 (10:06→21:56)
[2018-05-07] MEDS: PRINIVIL PO SCH (10:06)
[2018-05-07] MEDS: COLACE PO SCH ×2 (10:06→21:56)
[2018-05-07] MEDS: COREG PO SCH ×2 (10:06→21:56)
[2018-05-07] MEDS: ASPIRIN EC PO SCH (10:06)
[2018-05-07] MEDS: NORCO-7.5 PO PRN ×3 (10:10→21:59)
--- NOTE | 2018-05-07 10:11 | PROGRESS NOTE ---
DATE: 05/07/2018 INTERVAL HISTORY: Ms. Monge was admitted overnight with complaints of intermittent chest pain and exertional shortness of breath of about 1 week's duration, orthopnea, paroxysmal nocturnal dyspnea, and angina pectoris. In the emergency room, she was found to have acute hypoxic respiratory failure with bilateral pulmonary edema and hypertensive crisis. SUBJECTIVE: The patient continues to feel only fair. She is complaining of some shortness of breath and chest discomfort. She also complaining of some back pain and epigastric pain. She states she lives with her daughter. She does not answer questions about medical compliance appropriately. VITAL SIGNS: Currently temperature 97.7 degrees, pulse 90 per minute, blood pressure 190/90, saturating 93% on 2 liters nasal cannula. OBJECTIVE: General: Appears in mild distress. Oral cavity: Dry. Lungs: Air entry has reduced bilateral infrascapular region with inspiratory crackles. No wheeze or rhonchi. Heart: S1, S2 normal. No murmur, rub, or gallop. Abdomen: Soft. There is tenderness in right and left upper quadrant without any rigidity or rebound. Extremities: No lower extremity edema. Input and output suggests -500 mL so far off. LABS: Suggestive of no leukocytosis. Acceptable range hemoglobin, hematocrit, platelet count, normal kidney function. Negative troponin so far off. Microbiology: Urine culture is pending report. IMAGING: Chest x-ray had suggested bilateral pulmonary edema and small pleural effusion. ASSESSMENT AND PLAN: 1. Acute hypoxic respiratory failure. The patient's sats were in the 90s on admission, and had to be started on oxygen therapy secondary to pulmonary edema. Continue oxygenation to maintain saturation more than 92%. 2. Acute pulmonary edema due to heart failure with preserved ejection fraction exacerbation. Continue intravenous Lasix at higher dose 40 mg IV q.12 hours and monitor urine output. 3. Heart failure with preserved ejection fraction exacerbation with echocardiogram in December being 60%. Continue home medications of beta-blockers, LIAT inhibitors. I will add spironolactone as tolerated. 4. Uncontrolled hypertension and hypertensive emergency. Resume patient's home carvedilol, lisinopril, and give labetalol intravenous as needed to keep goal systolic blood pressure of around 150 to 160 for the first 24 hours. 5. History off sick sinus syndrome status post pacemaker aware. Electrocardiogram had T-wave inversions in lead 1 and aVL, which were an old finding. 6. History of coronary artery disease status post stent and pulmonary hypertension. Continue home aspirin, high-dosed statin, and beta-blockers. 7. History of chronic obstructive pulmonary disease. Continue albuterol/ipratropium nebulization as needed, fluticasone salmeterol. 8. History of insulin-dependent diabetes mellitus. Continue home dose of glargine, and I will add sliding-scale insulin as tolerated. 9. Disposition. The patient remains inside the hospital as we manage her hypertensive emergency. I will follow up with repeat echocardiogram and based on the findings if needed, consider consulting Cardiology. Plan of care was discussed with the patient. All of her questions have been answered. The patient lives with her daughter at home. At the time of discharge, she will be discharged home. cc: Pietro Jackson MD
[2018-05-07] MEDS ORDERED: INSULIN PEN NEEDLES ONE (11:10)
[2018-05-07] MEDS: BASAGLAR SUBQ SCH (11:25)
[2018-05-07] MEDS: HUMALOG SUBQ SCH ×4 (11:25→21:59)
[2018-05-07] MEDS: LASIX IV SCH (18:05)
[2018-05-07] MEDS: NEURONTIN PO SCH (21:55)
[2018-05-07] MEDS: LIPITOR PO SCH (21:56)
[2018-05-08] MEDS: NORCO-7.5 PO PRN ×3 (03:03→23:47)
[2018-05-08] MEDS: PRILOSEC PO SCH ×2 (05:11→06:18)
[2018-05-08] MEDS: LASIX IV SCH ×2 (05:11→06:17)
[2018-05-08] MEDS: LOVENOX SUBQ SCH (05:11)
[2018-05-08] MEDS: HUMALOG SUBQ SCH ×4 (06:19→23:48)
[2018-05-08 07:01] LABS: BASO# 0.01 X1000 (0.0-0.2); BASO% 0.1 % (0.0-0.8); EOS% 1.4 % (0.0-10.0); HEMATOCRIT 33.4 % (37.0-47.0); HEMOGLOBIN 10.1 g/dL (12.0-16.0); IMM GRAN# 0.02 X1000 (0.0-0.04); IMM GRAN% 0.3 % (0.0-0.5); LYMPH# 1.43 X1000 (1.2-3.4); LYMPH% 19.6 % (20.5-51.1); MCH 24.4 PG (27-31); MCHC 30.2 g/dL (33-37); MCV 80.7 FL (81-99); MONO# 0.35 X1000 (0.11-0.59); MONO% 4.8 % (1.7-9.3); NEUT# 5.37 X1000 (1.4-6.5); NEUT% 73.8 % (42.2-75.2); PLT 190 X1000 (130-400); RBC 4.14 XMIL (4.2-5.4); RDW 16.8 % (11.5-14.5); WBC 7.28 X1000 (4.8-10.8)
[2018-05-08 07:21] LABS: ALB/GLOB RATIO 1.3; ALBUMIN 3.3 g/dL (3.5-5.0); CALCIUM 8.8 mg/dL (8.8-10.2); CREATININE 1.1 mg/dL (0.5-0.9); MAGNESIUM 1.6 mg/dL (1.5-2.7); POTASSIUM 3.9 mmol/L (3.5-5.1); TOTAL BILIRUBIN 0.48 mg/dL (0.20-1.00); TOTAL PROTEIN 5.9 g/dL (6.3-8.3)
[2018-05-08] MEDS: ADVAIR 250/50 DISKUS INH SCH ×2 (09:14→21:07)
[2018-05-08] MEDS: COLACE PO SCH ×2 (09:20→23:47)
[2018-05-08] MEDS: COREG PO SCH ×2 (09:20→23:48)
[2018-05-08] MEDS: ASPIRIN EC PO SCH (09:20)
[2018-05-08] MEDS: PRINIVIL PO SCH (09:20)
[2018-05-08] MEDS: ZYLOPRIM PO SCH ×2 (09:20→23:48)
[2018-05-08] MEDS: BASAGLAR SUBQ SCH (11:28)
--- NOTE | 2018-05-08 13:36 | ECHO REPORT ---
ORDER DATE: 05/07/2018 ECHOCARDIOGRAPHIC MEASUREMENTS: 1. Interventricular septum 1.4 2. Left ventricular posterior wall 1.3. 3. Diastolic diameter 5.5. 4. Left ventricular systolic diameter 4.1. 5. Left atrium 4.1. 6. Aorta 3.2. SUMMARY: 1. Technically suboptimal study. 2. Definity was used to assess left ventricular systolic function. Normal left ventricular cavity size. Concentric left ventricular hypertrophy. Estimated ejection fraction of 55% to 60%. 3. Aortic valve leaflets are sclerosed, trileaflet opening normally. 4. Mitral valve was normal. 5. Tricuspid valve was normal. 6. Pulmonic valve was normal. 7. There is no aortic stenosis or regurgitation. There is trace to mild mitral regurgitation. 8. Pacing leads are noted in the right chamber. 9. There is tricuspid regurgitation. Mild peak velocity across the tricuspid valve was 3.5 m/sec. Pulmonary artery systolic pressure of 58 mmHg. 10. Trace pulmonary regurgitation. 11. There is no pericardial effusion or obvious intracardiac mass. cc: MD Rosas Puentes MD
--- NOTE | 2018-05-08 18:16 | PROGRESS NOTE ---
DATE: 05/08/2018 SUBJECTIVE: This patient states that she is feeling about the same. She is not complaining of chest pain, but she is complaining of shortness of breath. In the emergency department, she was found to be hypoxemic. Bilateral pulmonary edema and hypertensive crisis. The blood pressure is better controlled. She came in with a systolic blood pressure of 190. Now, it is around 130s to 120s. Chest x-ray upon admission showed pulmonary edema and pleural effusion. It looks like she has also a pacemaker on the left side of the chest. I will get a new x-ray tomorrow to be able to compare the new one with the one done at the beginning. I have decreased the dose of the Lasix from twice a day to once a day because her BUN and creatinine increased. BUN was 9 and increased to 27, and creatinine from 0.7 to 1.1. I will put this patient back also on her home diabetic medication to see how she does since her blood sugar has been running high. OBJECTIVE: Vital Signs: Temperature 98.8 degrees, pulse 70, respiratory rate 19, blood pressure 126/51 and oxygen saturation 100% on 2 L of nasal cannula. HEENT: Head normocephalic. No trauma. PERRLA. Neck: Supple. No JVD. No masses. Central trachea. Chest: Decreased breath sounds globally. She does have some inspiratory crepitus/crackles mostly at the bases. Abdomen: Soft, nontender, and nondistended. No hepatosplenomegaly. Extremities: No edema. No clubbing. No cyanosis. Neurological: The patient is alert and oriented x3. No focal deficits. LABORATORY: WBC 7.2, hemoglobin 10.1, hematocrit 33.4, and platelets 190,000. Sodium 136, potassium 3.9, chloride 97, bicarbonate 29, BUN 27, creatinine 1.1, and glucose 232. Calcium 8.8. Albumin 3.3. ASSESSMENT AND PLAN: 1. Acute hypoxemic respiratory failure likely secondary to acute pulmonary edema due to heart failure. No evidence of infection. Continue with oxygen supplementation, breathing treatment. Pulmonary toilet. For his pulmonary edema, we are using Lasix which I will decrease the dose due to acute kidney injury. Also, I will hold for now the lisinopril. 2. Acute pulmonary edema due to heart failure with preserved ejection fraction exacerbation. I will continue with diuretics. I will monitor the urine output, and the kidney function. 3. Acute kidney injury, likely secondary to diuretics. I will hold for now the lisinopril, and I will decrease the dose of the Lasix. I will monitor the kidney function in the morning. 4. Congestive heart failure exacerbation, likely diastolic. Ejection fraction around 55 to 60 percent with an increased pulmonary arterial pressure of 58 mmHg. 5. Uncontrolled hypertension with hypertensive emergency resolved. Continue with same management. 6. History of sick sinus syndrome status post pacemaker aware. 7. History of coronary artery disease status post stent and pulmonary hypertension. Continue with aspirin, statin and beta blockers. 8. History of COPD, continue with albuterol, hypertropia and nebulization as needed. Fluticasone. Salmeterol. 9. History of diabetes. We will continue with his home dose of glargine which is twice a day. I will continue with sliding scale insulin as tolerated. cc: Fabrizio Eckert MD
[2018-05-08] MEDS: NEURONTIN PO SCH (23:47)
[2018-05-08] MEDS: LIPITOR PO SCH (23:47)
[2018-05-09] MEDS: BASAGLAR SUBQ SCH ×3 (00:35→20:55)
[2018-05-09] MEDS ORDERED: INSULIN PEN NEEDLES ONE (00:40)
[2018-05-09] MEDS: LOVENOX SUBQ SCH (05:54)
[2018-05-09] MEDS: NORCO-7.5 PO PRN ×2 (05:54→18:21)
[2018-05-09] MEDS: PRILOSEC PO SCH ×2 (05:54→06:02)
[2018-05-09 06:58] LABS: BASO# 0.01 X1000 (0.0-0.2); BASO% 0.2 % (0.0-0.8); EOS# 0.25 X1000 (0.0-0.7); EOS% 5.2 % (0.0-10.0); HEMATOCRIT 35.2 % (37.0-47.0); HEMOGLOBIN 10.5 g/dL (12.0-16.0); LYMPH# 1.47 X1000 (1.2-3.4); LYMPH% 30.6 % (20.5-51.1); MCH 24.2 PG (27-31); MCHC 29.8 g/dL (33-37); MCV 81.3 FL (81-99); MONO# 0.29 X1000 (0.11-0.59); MPV 10.3 FL (7.4-10.4); NEUT# 2.79 X1000 (1.4-6.5); PLT 184 X1000 (130-400); RBC 4.33 XMIL (4.2-5.4); RDW 16.6 % (11.5-14.5); WBC 4.81 X1000 (4.8-10.8)
[2018-05-09 07:23] LABS: AGAP 9; ALB/GLOB RATIO 1.3; ALBUMIN 3.4 g/dL (3.5-5.0); ALKALINE PHOSPHATASE 102 U/L (32-104); BUN 28 mg/dL (8-22); CALCIUM 8.9 mg/dL (8.8-10.2); CHLORIDE 100 mmol/L (98-107); COSMO 285; CREATININE 0.8 mg/dL (0.5-0.9); ESTIMATED GFR > 60; GLUCOSE 105 mg/dL (70-104); GOT 17 U/L (10-30); GPT 14 U/L (10-36); IRON SATURATION 9 %; MAGNESIUM 1.9 mg/dL (1.5-2.7); POTASSIUM 4.2 mmol/L (3.5-5.1); SODIUM 140 mmol/L (136-145); TCO2 31 mmol/L (25-35); TIBC 257 ug/dL; TOTAL BILIRUBIN 0.32 mg/dL (0.20-1.00); TOTAL IRON 24 ug/dL (49-151); UNBOUND IRON 233 ug/dL (112-346)
[2018-05-09 07:34] LABS: FERRITIN 50 ng/mL (13-150)
[2018-05-09] MEDS: ADVAIR 250/50 DISKUS INH SCH ×2 (10:39→20:15)
[2018-05-09] MEDS: LASIX IV SCH (11:01)
[2018-05-09] MEDS: HUMALOG SUBQ SCH ×4 (11:01→20:55)
[2018-05-09] MEDS: COLACE PO SCH ×2 (11:03→20:53)
[2018-05-09] MEDS: COREG PO SCH ×2 (11:04→20:54)
[2018-05-09] MEDS: ASPIRIN EC PO SCH (11:04)
[2018-05-09] MEDS: ZYLOPRIM PO SCH ×2 (11:04→20:53)
[2018-05-09] MEDS: ROCEPHIN 1 GM in NS 50 ML IV SCH (18:20)
--- NOTE | 2018-05-09 18:48 | Diag Imaging Result Doc PS360 ---
EXAM: SHOULDER-LEFT 05/09/2018 HISTORY: pain TECHNIQUE: Left shoulder two views COMMENT: There is no evidence of acute fracture or dislocation. There is mild degenerative change in the acromioclavicular joint. IMPRESSION: Osteoarthritis. Electronically signed by Colby Ortiz 05/09/2018 6:46 PM
[2018-05-09] MEDS: NEURONTIN PO SCH (20:53)
[2018-05-09] MEDS: LIPITOR PO SCH (20:53)
[2018-05-09] MEDS: MIRALAX PO SCH (20:54)
--- NOTE | 2018-05-10 00:56 | PROGRESS NOTE ---
DATE: 05/09/2018 SUBJECTIVE: This patient seems to be doing better. She is not complaining of chest pain at this moment. She is still complaining of some shortness of breath, mostly with a little bit of physical activity. Her pro BMP decreased from 1600 to 394. She does have iron deficiency anemia and a positive urine culture that showed Escherichia coli. She has been placed on ceftriaxone. We will continue with the same management. I believe she can be discharged in the next 48 hours. Will continue physical therapy and occupational therapy. Also, she is complaining of left shoulder pain. I will get a left shoulder x-ray, and depending on the results, I will get Orthopedic Surgery Department to evaluate this patient. OBJECTIVE: Vital Signs: Temperature 98.1 degrees, pulse 70, respiratory rate 20, blood pressure 137/80, oxygen saturation 100% on 2 L of nasal cannula. HEENT: Head normocephalic. No trauma. PERRLA. Neck: Supple. No JVD. No masses. Central trachea. Chest: Decreased breath sounds globally, with some crepitus, mostly at the bases. Abdomen: Soft, nontender, nondistended. No hepatosplenomegaly. Extremities: No edema. No clubbing. No cyanosis. Neurological: The patient is alert and oriented x3. No focal deficits. LABORATORY: WBC 4.8, hemoglobin 10.5, hematocrit 35.2, platelets 184,000. Sodium 140, potassium 4.2, chloride 100, bicarbonate 31, BUN 28, creatinine 0.8, glucose 105. Calcium 8.9. Albumin 3.4. ASSESSMENT AND PLAN: 1. Acute hypoxemic respiratory failure secondary to acute pulmonary edema due to heart failure. No evidence of pneumonia. We will continue with oxygen supplementation, breathing treatment, pulmonary toilet, and diuresis. The kidney function improved compared with yesterday. We will continue with the same management for now. 2. Acute pulmonary edema due to heart failure, with preserved ejection fraction exacerbation. I will continue with diuretics. I will monitor the urine output and the kidney function. She seems to be doing better. The BNP decreased from 1600 to 394. I do not see any diuretics on her home medications. 3. Uncontrolled hypertension with hypertensive emergency. Resolved. 4. History of sick sinus syndrome, status post pacemaker placement. Aware. 5. History of coronary artery disease, status post stent and pulmonary hypertension. Continue with aspirin, statin, and beta vijay. 6. History of chronic obstructive pulmonary disease. Continue with breathing treatment. 7. History of diabetes. Continue with the same management. It looks like she is doing better. 8. Urinary tract infection. We have a positive culture that showed E. coli. She has been placed already on ceftriaxone. 9. Iron deficiency anemia. She will be placed on iron tablets once she is close to being discharged. cc: Fabrizio Eckert MD
[2018-05-10] MEDS: HUMALOG SUBQ SCH ×3 (06:04→17:53)
[2018-05-10] MEDS: PRILOSEC PO SCH (06:13)
[2018-05-10] MEDS: LOVENOX SUBQ SCH (06:14)
--- NOTE | 2018-05-10 07:10 | Diag Imaging Result Doc PS360 ---
EXAM: CHEST-PORTABLE 05/10/2018 HISTORY: dyspnea TECHNIQUE: AP portable at 0554 COMMENT: There is cardiomegaly. The basilar opacities which were demonstrated on 05/06/2018 have diminished slightly. There is still some apparent perihilar opacity and interstitial edema. IMPRESSION: Improved pulmonary edema versus pneumonia. Electronically signed by Colby Ortiz 05/10/2018 7:07 AM
[2018-05-10 07:35] LABS: AGAP 7; BUN 22 mg/dL (8-22); CALCIUM 9.3 mg/dL (8.8-10.2); CHLORIDE 100 mmol/L (98-107); COSMO 286; CREATININE 0.8 mg/dL (0.5-0.9); ESTIMATED GFR > 60; GLUCOSE 132 mg/dL (70-104); POTASSIUM 3.9 mmol/L (3.5-5.1); SODIUM 141 mmol/L (136-145); TCO2 34 mmol/L (25-35)
[2018-05-10] MEDS: ADVAIR 250/50 DISKUS INH SCH ×2 (08:12→20:14)
[2018-05-10] MEDS: LASIX IV SCH (08:15)
[2018-05-10] MEDS: COREG PO SCH (08:15)
[2018-05-10] MEDS: COLACE PO SCH (08:15)
[2018-05-10] MEDS: ASPIRIN EC PO SCH (08:15)
[2018-05-10] MEDS: ZYLOPRIM PO SCH (08:16)
[2018-05-10] MEDS: MIRALAX PO SCH (08:16)
[2018-05-10] MEDS: BASAGLAR SUBQ SCH (08:16)
[2018-05-10] MEDS: NORCO-7.5 PO PRN ×2 (09:54→21:04)
[2018-05-10] MEDS: ROCEPHIN 1 GM in NS 50 ML IV SCH (17:52)
--- NOTE | 2018-05-10 19:44 | PROGRESS NOTE ---
DATE: 05/10/2018 SUBJECTIVE: Patient is feeling much better. She is still complaining of chest pain which is reproducible upon palpation. She also is complaining of left shoulder pain with movement. OBJECTIVE: Vital Signs: Temperature 97.4 degrees, pulse 70, respiratory rate 12, blood pressure 167/71, oxygen saturation 99 on 2 L of nasal cannula. HEENT: Head normocephalic. No trauma. PERRLA. Neck: Supple. No JVD. No masses. Central trachea. Chest: Decreased breath sounds globally with some crepitus at the bases. Abdomen: Soft, nontender, nondistended. No hepatosplenomegaly. Extremities: No edema. No clubbing. No cyanosis. Neurological: The patient is alert and oriented x3. No focal deficits. Chest painful to palpation in the sternal area. LABORATORY: Sodium 141, potassium 3.9, chloride 100, bicarbonate 34, BUN 22, creatinine 0.8, glucose 132, calcium 9.3. ASSESSMENT AND PLAN: 1. Acute hypoxemic respiratory failure secondary to acute pulmonary edema due to heart failure, no evidence of pneumonia. We will continue with oxygen supplementation. X-ray looks better. Continue with the same management. 2. Acute pulmonary edema due to heart failure with preserved ejection fraction, will continue with diuretics. I will monitor the urine output and the kidney function which has been stable. BMP decreased from 1600 to 394. I had a conversation with the daughter today and she states that she has been on furosemide 20 mg twice a day. 3. Uncontrolled hypertension with hypertensive emergency resolved. 4. History of sick sinus syndrome, status post pacemaker placement. Aware. 5. History of coronary artery disease status post stent and pulmonary hypertension continue with aspirin statin and beta blockers. 6. History of COPD, continue with breathing treatment. 7. History of diabetes, continue with same management. It looks like she is doing better. 8. Urinary tract infection. We have a positive culture that showed Escherichia coli. She has been placed already on ceftriaxone. 9. Iron deficiency anemia. Continue with the same management. cc: Fabrizio Eckert MD
[2018-05-11] MEDS: MIRALAX PO SCH ×2 (00:01→10:32)
[2018-05-11] MEDS: ZYLOPRIM PO SCH ×2 (00:02→10:30)
[2018-05-11] MEDS: NEURONTIN PO SCH (00:02)
[2018-05-11] MEDS: COLACE PO SCH ×2 (00:02→10:32)
[2018-05-11] MEDS: COREG PO SCH ×2 (00:02→10:31)
[2018-05-11] MEDS: LIPITOR PO SCH (00:02)
[2018-05-11] MEDS: BASAGLAR SUBQ SCH ×2 (00:03→10:27)
[2018-05-11] MEDS: HUMALOG SUBQ SCH ×2 (00:03→06:27)
[2018-05-11] MEDS: PRILOSEC PO SCH (06:25)
[2018-05-11] MEDS: LOVENOX SUBQ SCH (06:25)
[2018-05-11 07:17] LABS: AGAP 10; BUN 16 mg/dL (8-22); CALCIUM 9.6 mg/dL (8.8-10.2); CHLORIDE 98 mmol/L (98-107); COSMO 280; CREATININE 0.7 mg/dL (0.5-0.9); ESTIMATED GFR > 60; GLUCOSE 88 mg/dL (70-104); POTASSIUM 3.8 mmol/L (3.5-5.1); SODIUM 140 mmol/L (136-145); TCO2 32 mmol/L (25-35)
[2018-05-11] MEDS: ADVAIR 250/50 DISKUS INH SCH (08:36)
[2018-05-11] MEDS ORDERED: LASIX LIQUID PO SCH (09:00)
[2018-05-11] MEDS: ASPIRIN EC PO SCH (10:31)
[2018-05-11] MEDS: PRINIVIL PO SCH (10:32)
[2018-05-11] MEDS: NORCO-7.5 PO PRN (11:32)
[2018-05-11 13:45] VITALS: BP 131/57
--- NOTE | 2018-05-12 11:52 | DISCHARGE SUMMARY ---
ADMISSION DATE: 05/07/2018 DISCHARGE DATE: 05/11/2018 DISCHARGE DIAGNOSES: 1. Acute hypoxemic respiratory failure secondary to acute pulmonary edema due to heart failure. 2. Acute pulmonary edema due to heart failure. 3. Diastolic heart failure. 4. Uncontrolled hypertension with hypertensive emergency, resolved. 5. History of sick sinus syndrome, status post pacemaker placement. 6. History of coronary artery disease, status post stent placement and pulmonary hypertension. 7. History of chronic obstructive pulmonary disease. 8. History of diabetes. 9. Urinary tract infection. 10. Iron deficiency anemia. HOSPITAL COURSE: This is a 67-year-old, female with a past medical history of COPD, CHF, sick sinus syndrome, status post pacemaker, coronary artery disease, status post stents, and pulmonary hypertension, who came to the emergency department and was admitted on 05/07/2018 due to shortness of breath, especially on exertion, that has been getting worse every day for a couple of weeks, associated with orthopnea and paroxysmal nocturnal dyspnea. As per Sujata Mariposa, she has been having on and off chest pain that gets better with nitroglycerin. Upon presentation, her blood pressure was 197/93, pulse 103, respiratory rate 23, temperature 98.4 degrees. The patient's oxygen saturation was in the 90s on oxygen therapy. X-ray showed pulmonary edema. She was admitted to the [facility] unit and we started this patient on diuretics and strict in and out. We restarted this patient on her home medications. For some reason, she was not using beta blockers, but we put her on carvedilol and we used labetalol as needed for adequate blood pressure control. We trended her troponins to make sure that she did have any NSTEMI. We asked for an echocardiogram, that showed an estimated ejection fraction of 55 to 60 percent, concentric left ventricular hypertrophy, and a pulmonary artery systolic pressure of 58 mmHg. We continued with diuresis. I contacted her daughter and she stated that this patient was not using Lasix at home, and the beta vijay was stopped, but she does not know why. Since admission, this patient has been on furosemide and also beta blockers, and actually her vital signs, lab work, and symptoms are much better. I talked to the daughter and I said to her that she needed to get an appointment with her cafe server at [facility] this week. She will be discharged with the medications that she was getting during this hospitalization. We have a positive urine culture that showed E coli, but this patient is not having urinary symptoms. This patient is feeling much better and this is why we decided to discharge this patient with strict followup by her cafe server. The case has been discussed with the patient and with the daughter by phone. PHYSICAL EXAMINATION: Vital signs: Upon discharge, temperature 98.3 degrees, pulse 70, respiratory rate 20, blood pressure 131/67, oxygen saturation 97% on room air. HEENT: Head normocephalic. No trauma. PERRLA. Neck: Supple. No JVD. No masses. Central trachea. Chest: Decreased breath sounds globally with some crepitus at the bases. Abdomen: Soft, nontender, nondistended. No hepatosplenomegaly. Extremities: No edema. No clubbing. No cyanosis. Neurological: The patient was alert and oriented x3. No focal deficits. She was complaining of chest pain, but it was painful to palpation. LABORATORY DATA: Sodium 140, potassium 3.8, chloride 98, bicarbonate 32, BUN 16, creatinine 0.7, glucose 88, calcium 9.6. DISCHARGE MEDICATIONS: 1. Nitroglycerin 0.4 mg sublingual as needed for chest pain. 2. Loratadine 10 mg p.o. daily. 3. Lisinopril 20 mg p.o. daily. 4. Insulin glargine 35 units subcutaneous q.p.m. and 45 units subcutaneous q.a.m. 5. Gabapentin 600 mg p.o. at bedtime. 6. Advair 250/ 50 Diskus, 1 puff inhaler twice a day. 7. Colace 100 mg p.o. b.i.d. 8. Atorvastatin 80 mg p.o. at bedtime. 9. Aspirin 81 mg p.o. daily. 10. Allopurinol 100 mg p.o. b.i.d. 11. MiraLAX 17 g p.o. b.i.d. as needed for constipation. 12. Omeprazole 40 mg p.o. daily. 13. Furosemide 40 mg p.o. daily. 14. Carvedilol 3.25 mg p.o. b.i.d. Time discharging this patient was 35 minutes. cc: Fabrizio Eckert MD
== END 2018-05-11 17:25 | disposition home health service (06) | DRG 291 ==
LOC: ED 22:50 → EDIPHOLD 05-07 01:43 → SUATTDRO 05-07 01:43 → 4N 05-07 18:41
PROVIDERS: ATTEND Internal Medicine
CPT/HCPCS: 51702; 71010; 71020; 71045; 71046; 73030; 80048; 80053; 81001; 82550; 82553; 82607; 82728; 82746; 82805; 82948; 83540; 83550; 83735; 83880; 84443; 84484; 85025; 85610; 85730; 87077; 87088; 87186; 93005; 93306; 94640; 94761; 96372; 96374; 96375; 97110; 97162; 97530; 99285; A9270; C8929; J0696; J1650; J1815; J1940; J2930; Q9957; XXXXX